=== PATIENT | male | born 1970 | race Caucasian/White ===

== ENCOUNTER 2024-07-17 21:29 | Inpatient (IN) | payer BC, SELFPAY ==
--- NOTE | 2024-07-17 21:30 | ECG_ITS ---
APPROVED REPORT Exam: Resting ECG HR:110 bpm ECG Measurements Heart Rate 110 AXES NV 120 P 27 QRSd 102 QRS 30 QT 329 T 27 QTc 394 Conclusion SINUS TACHYCARDIA INDETERMINATE AXIS INCOMPLETE RIGHT BUNDLE BRANCH BLOCK [90+ ms QRS DURATION, TERMINAL R IN V1/V2, 40+ ms S IN I/aVL/V4/V5/V6] SEPTAL MYOCARDIAL INFARCTION , PROBABLY OLD [40+ ms Q WAVE IN V1/V2] ABNORMAL ECG UNCONFIRMED REPORT Electronically signed by : Erick Hilton MD 07/18/2024 09:37:16
--- OUTSIDE RECORDS SUMMARY | 2024-07-17 21:33 | XMS_ITS | Encounter Summary ---
Author Organization [employer] Address [address] [place] [address] Care Team Providers Care Puddler Helper Name Role Phone Derick Peres MD Primary Care Provider [phone] Encounter Details Date Type Department Care Team (Late st Contact Info) Description 05/25/2024 Orders Only [facility] [address] [facility] [address] [place] [address] Suraj Martin MD [address] [facility] [address] [place], [place] [id number] Gastroesophageal reflux disease without esophagitis (Primary Dx); Screen for colon cancer Social History Tobacco Use Types Packs/Day Years Used Date Smoking Tobacco: Never Assessed Interpersonal Safety Answer Date Record ed Family or friends hurt you Not on file 04/19 Family or friends insult you Not on file 05/2024 Family or friends threaten you Not on file 0 04/19/2024 Family or friends scream or curse at you Not on file 04/19/2024 Food Insecurity Answer Date Recorded Food run out past 12 months Not on file 04/10 Food did not last past 12 months Not on file 04/19/2024 Employment Answer Date Recorded Help finding and keeping a job Not on file 0 04/19/2024 Family and Community Support Answer Kirill e Recorded Help with Day to Day Activities Not on file 04/19/2024 Feeling Lonely or Isolated Not on file 04/19 Educational Attainment Answer Date Naun rded Speak language other than [place] at home Not on file 04/19/2024 Want help with school or training Not on file 04/19/2024 Depression Answer Date Recorded PHQ-2 Risk Not on file 04/19/2024 Disabilities Answer Date Recorded Difficulty concentrating Not on file 024 Difficulty doing errands alone Not on file 0 04/19/2024 Substance Use Answer Date Recorded Used prescription meds for non-medical reasons N ot on file 04/19/2024 Used illegal drugs past 12 months Not on file 04/19/2024 Sex and Gender Information Value Date Recorded Sex Assigned at Not on file Legal Sex Male 9:54 AM CDT Gender Identity Not on file Sexual Orientation Not on file documented as of this encounter Plan of Treatment Upcoming Encounters Date Type Department Care Team (Late st Contact Info) Description 07/29/2024 9:51 AM EST Hospital Encounter [facility] Endoscopy 1 [place] [address] Suraj Martin MD [address] [place] [address] 07/29/2024 9:51 AM EST - 07/29/2024 10:[address] [facility] Endoscopy 1 [place] [address] Suraj Martin MD [address] [place] [address] COLONOSCOPY Scheduled Procedures Name Priority Associated Diagnoses Date/Ti ma COLONOSCOPY Screen for colon cancer 07/29/2024 9:51 AM EST EGD (ESOPHAGOGASTRODUODENOSCOPY ) Screen for colon cancer 07/29/2024 9:51 AM EST documented as of this encounter Visit Diagnoses Diagnosis Gastroesophageal reflux disease without esophagitis- Primary Esophageal reflux Screen for colon cancer Special screening for malignant neoplasms, colon Screen for colon cancer- Primary Special screening for malignant neoplasms, colon Screen for colon cancer Special screening for malignant neoplasms, colon documented in this encounter Care Teams Puddler Helper Relationship Specialty Start Date End Date Derick Peres MD [address] [place] [address] PCP - General Emergency Medicine 04/19/24 documented as of this encounter
--- OUTSIDE RECORDS SUMMARY | 2024-07-17 21:33 | XMS_ITS | Referral Summary ---
Author Organization [employer] Address [address] [place] [address] Care Team Providers Care Supervisor Core Shop Name Role Phone Derick Peres MD Primary Care Provider [phone] Encounters Date Type Department Care Team Description 05/25/2024 Orders Only [facility] [address] [place] [address] [address] Suraj Martin MD 05/25/2024 Orders Only [facility] [address] [place] [address] [address] Suraj Martin MD Gastroesophageal reflux disease without esophagitis (Primary Dx); Screen for colon cancer 04/19/2024 Outside Orders [facility] [address] [place] [address] [address] Derick Peres MD Screening for colon cancer (Primary Dx) from Last 3 Months Allergies No known active allergies Medications sodium-potassium -mag sulfates (Suprep Bowel Prep Kit) 17.5-3.13-1.6 gram solution Take 177 mLs by mouth 2 (two) times daily for 2 doses. 354 mL 07/28/2024 Active Active Problems Problem Noted Date Diagnosed Date Screen for colon cancer 05/25/2024 Social History Tobacco Use Types Packs/Day Years [...] Date Naun rded Speak language other than Tajik at home Not on file 04/19/2024 Want [...] on file Sexual Orientation Not on file Plan of Treatment Upcoming Encounters Date Type Department Care Team (Late st Contact Info) Description 07/29/2024 9:51 AM EST Hospital Encounter [facility] Endoscopy [address] [place] [address] Suraj Martin MD [address] [place] [address] 07/29/2024 9:51 AM EST - 07/29/2024 10:41 AM EST Surgery [facility] Endoscopy [address] [place] [address] Suraj Martin MD [address] [place] [address] COLONOSCOPY Scheduled Procedures Name Priority Associated Diagnoses Date/Ti nm COLONOSCOPY Screen for colon cancer 07/29/2024 9:51 AM EST EGD (ESOPHAGOGASTRODUODENOSCOPY ) Screen for colon cancer 07/29/2024 9:51 AM EST Insurance BLUE CROSS/BLUE SHIELD Care Teams Supervisor Core Shop Relationship Specialty Start Date End Date Derick Peres MD [address] [place] [address] PCP - General Emergency Medicine 04/19/24
--- OUTSIDE RECORDS SUMMARY | 2024-07-17 21:33 | XMS_ITS | Encounter Summary ---
Author Organization [employer] Address [address] [place] [address] Care Team Providers Care Manager Emergency Department Name Role Phone Derick Peres MD Primary Care Provider [phone] Encounter Details Date Type Department Care Team (Late st Contact Info) Description 05/25/2024 Orders Only [facility] [address] [facility] [address] [place] [address] Suraj Martin MD [address] [facility] [address] [place] [id number] Social History Tobacco Use Types Packs/Day Years [...] Date Naun rded Speak language other than Yemeni at home Not on file 04/19/2024 Want [...] Description 07/29/2024 9:51 AM EST Hospital Encounter [facility] Endoscopy 1 [place] [address] Suraj Martin MD [address] [place] [address] 07/29/2024 9:51 AM EST - 07/29/2024 10:41 AM EST Surgery [facility] Endoscopy 1 [place] [address] Suraj Martin MD [address] [place] [address] COLONOSCOPY Scheduled Procedures Name Priority Associated Diagnoses Date/Ti me COLONOSCOPY Screen for colon cancer 07/29/2024 9:51 AM EST EGD (ESOPHAGOGASTRODUODENOSCOPY ) Screen for colon cancer 07/29/2024 9:51 AM EST documented as of this encounter Visit Diagnoses Not on filedocumented in this encounter Care Teams Manager Emergency Department Relationship Specialty Start Date End Date Derick Peres MD [address] [place] [phone] PCP - General Emergency Medicine 04/19/24 documented as of this encounter
--- OUTSIDE RECORDS SUMMARY | 2024-07-17 21:33 | XMS_ITS | Clinical Summary ---
Author Organization [employer] Address [address] [place] [address] Care Team Providers Care Director Of Government Sales Name Role Phone Derick Peres MD Primary Care Provider [phone] Allergies No known active allergies Medications sodium-potassium -mag sulfates (Suprep Bowel Prep Kit) 17.5-3.13-1.6 gram solution Take 177 mLs by mouth 2 (two) times daily for 2 doses. 354 mL 07/28/2024 Active Active Problems Problem Noted Date Diagnosed Date Screen for colon cancer 05/25/2024 Encounters Date Type Department Care Team Description 05/25/2024 Orders Only [facility] [address] [place] [address] [address] Suraj Martin MD 05/25/2024 Orders Only [facility] [address] [place] [address] [address] Suraj Martin MD Gastroesophageal reflux disease without esophagitis (Primary Dx); Screen for colon cancer 04/19/2024 Outside Orders [facility] [address] [place] [address] [address] Derick Peres MD Screening for colon cancer (Primary Dx) from Last 3 Months Social History Tobacco Use Types Packs/Day Years [...] Date Naun rded Speak language other than Cameroonian at home Not on file 04/19/2024 Want [...] Description 07/29/2024 9:51 AM EST Hospital Encounter [facility] Endoscopy 1 [place] [address] Suraj Martin MD [address] [place] [address] 07/29/2024 9:51 AM EST - 07/29/2024 10:41 AM EST Surgery [facility] Endoscopy 1 [place] [address] Suraj Martin MD [address] [place] [address] COLONOSCOPY Scheduled Procedures Name Priority Associated Diagnoses Date/Ti il COLONOSCOPY Screen for colon cancer 07/29/2024 9:51 AM EST EGD (ESOPHAGOGASTRODUODENOSCOPY ) Screen for colon cancer 07/29/2024 9:51 AM EST Health Maintenance Due Date Last Done Comments CT Colonography 1968 Colonoscopy 1968 Colorectal Cancer Screening 1968 FOBT/FIT 1968 Fit-DNA (Cologuard) 1968 Sigmoidoscopy 1968 Depression Screening (12+) 1980 Tobacco Cessation Counseling and Screening (12+) 12/13 HIV Screening 12/14/1983 Hepatitis C Screening 1986 DTAP/TDAP/TD VACCINES (1 - Tdap) 12/14/1987 Lipid Panel 12/14/2003 Shingles Vaccine (Zoster) (1 of 2) 2018 COVID-19 VACCINE (2023- season) 2024 Influenza Vaccine (#1) 2024 Insurance BLUE CROSS/BLUE SHIELD Care Teams Director Of Government Sales Relationship Specialty Start Date End Date Derick Peres MD [address] [facility] [place] [address] PCP - General Emergency Medicine 04/19/24
--- OUTSIDE RECORDS SUMMARY | 2024-07-17 21:33 | XMS_ITS | Encounter Summary ---
Author Organization [employer] Address [address] [place] [address] Care Team Providers Care Police Lieutenant Name Role Phone Derick Peres MD Primary Care Provider [phone] Reason for Referral * Surgical (Routine) - Authorized Specialty Diagnoses / Procedures Referred By Contact Referred To Contact General Surgery Diagnoses Screening for colon cancer Gastro-esophageal reflux disease without esophagitis Procedures COLONOSCOPY DC ESOPHAGOGASTRODUODENOSCOPY TRANSORAL DIAGNOSTIC Mailed Letter 05/05/24 GIVE TO Derick Hernandez MD [address] [place] [address] Phone: tel:[phone] fax:[phone] Suraj Martin MD [address] [facility] [address] [place] [address] Phone: tel:[phone] fax:[phone] Referral ID Status Reason Start Date Expiration Date Visits Requested Visits Authorized [id number] Authorized Specialty Services Required 04/19/2024 04/19/2025 1 1 Encounter Details Date Type Department Care Team (Late st Contact Info) Description 04/19/2024 Outside Orders [facility] [address] [facility] [address] [place] [address] Derick Peres MD [address] [place] [address] Screening for colon cancer (Primary Dx) Social History Tobacco Use Types Packs/Day Years [...] Date Naun rded Speak language other than Bulgarian at home Not on file 04/19/2024 Want [...] Description 07/29/2024 9:51 AM EST Hospital Encounter [facility] Endoscopy 1 [place] [address] Suraj Martin MD [address] [place] [address] [address] [id number] 07/29/2024 9:51 AM EST - 07/29/2024 10:41 AM EST Surgery [facility] Endoscopy 1 [place] [address] Suraj Martin MD [address] [facility] [place] [address] COLONOSCOPY Scheduled Procedures Name Priority Associated Diagnoses Date/Ti me COLONOSCOPY Screen for colon cancer 07/29/2024 9:51 AM EST EGD (ESOPHAGOGASTRODUODENOSCOPY ) Screen for colon cancer 07/29/2024 9:51 AM EST Scheduled Referrals Name Type Priority Associated Diagnoses Order Schedule Ambulatory referral to General Surgery Outpatient Referral Routine Screening for colon cancer Expected: 04/19/2024, Expires: 04/19/2025 documented as of this encounter Visit Diagnoses Diagnosis Screening for colon cancer- Primary Special screening for malignant neoplasms, colon Screen for colon cancer Special screening for malignant neoplasms, colon documented in this encounter Care Teams Police Lieutenant Relationship Specialty Start Date End Date Derick Peres MD [address] [place] [address] PCP - General Emergency Medicine 04/19/24 documented as of this encounter
[2024-07-17 21:37] VITALS: PULSE 100
--- NOTE | 2024-07-17 21:38 | PC.NURSE ---
Patient arrived to floor via stretcher with EMS from [facility] at 21:35.
[2024-07-17 21:46] VITALS: PULSE 100
[2024-07-17 21:57] VITALS: BP 127/75; RESP 18; TEMP 38; O2SAT 94
[2024-07-17 22:00] VITALS: BMI 34.3
--- NOTE | 2024-07-17 22:39 | CT_ITS ---
PROCEDURE INFORMATION: Exam: CT Head Without Contrast Exam date and time: 07/17/2024 11:18 PM Age: 53 years old Clinical indication: Dizziness; Additional info: Vertigo TECHNIQUE: Imaging protocol: Computed tomography of the head without contrast. Radiation optimization: All CT scans at this facility use at least one of these dose optimization techniques: automated exposure control; mA and/or kV adjustment per patient size (includes targeted exams where dose is matched to clinical indication); or iterative reconstruction. COMPARISON: No relevant prior studies available. FINDINGS: Brain: No evidence for acute intracranial hemorrhage, midline shift, or mass effect. No convincing evidence for acute transcortical infarct. Cerebral ventricles: No ventriculomegaly. Paranasal sinuses: Visualized sinuses are unremarkable. No fluid levels. Mastoid air cells: Visualized mastoid air cells are well aerated. Teeth: There is dental amalgam which causes streak artifact and mildly limits evaluation of the oral cavity. Bones: There is hyperdensity of the skull base vasculature which can be seen in recent IV contrast administration, please correlate clinically. Soft tissues: Unremarkable. IMPRESSION: 1. There is hyperdensity of the skull base vasculature which can be seen in recent IV contrast administration, please correlate clinically. 2. No evidence for acute intracranial hemorrhage, midline shift, or mass effect. No convincing evidence for acute transcortical infarct.
--- NOTE | 2024-07-17 22:47 | P.HP_ITS ---
History of Present Illness *Admission Date: 07/17/24 *Reason for visit:: I feel weak *History of present illness: This is a 53-year-old male that has presented to [facility] in transition of care from [facility] emergency department for sepsis presentation with elevated troponin. The patient reports no chest pain and ED has identified no acute ST-T changes on ECG. The patient is accompanied by his and 3 daughters who assist with the history. He describes a past medical history which is significant for hypertension, tobacco dependence and LOYD but no identified chronic kidney disease. His tobacco use history is significant for 1 pack/day for 30 years. He drinks 4 to 6 ounces of bourbon daily. He reports awakening at 2 AM with fever, chills, diaphoresis and near syncope with standing up. He felt like my legs were going to give out. He laid back down and went to sleep. He woke up approximately 10 AM and reported some spinning room sensation to his with ongoing chills and generalized weakness. He went back to bed and woke up later in the afternoon and his reports that he was talking out of his head and he called me Anna which is his sister. The patient identified no dysarthria, acute loss of motor or sensory function. He reported no falls. He remained lightheaded. They presented to their local ED and he was assessed with sepsis with blood cultures pending, S/P fluid resuscitation and IV antibiotic therapy. His initial troponin was 718 and trended downward to 697. He was started on IV heparin therapy and cardiology was consulted out of the ED and his care was transitioned to our facility for cardiology services. Currently the patient continues to deny retrosternal chest pain, palpitations or acute dyspnea. He reports no associated cough, hemoptysis or sputum production. He cannot identify sick contacts. He does endorse confusion early this morning. He reports no prior history of cardiac catheterization. [facility] Medical History (Updated 07/17/24 @ 23:04 by Randy Burt MD) LOYD (obstructive sleep apnea) Tobacco dependence BMI 35.0-35.9,adult HTN (hypertension) Surgical History (Updated 07/17/24 @ 22:57 by Randy Burt MD) S/P lumbar laminectomy Superior glenoid labrum lesion of right shoulder Family History (Updated 07/17/24 @ 22:57 by Randy Burt MD) Other Adopted Social History (Updated 07/17/24 @ 22:59 by Randy Burt MD) Smoking Status: Current every day smoker tobacco type: cigarettes packs per day: 1 years smoked: 30 alcohol intake: current alcohol intake frequency: 3 or more drinks per day Type: hard liquor current occupational status: employed Travel in the last 8 weeks: None Other Medical History Have you received the Flu Vaccine for this season: No Have you received the Pneumonia Vaccine: No Review of Systems Review of Systems Review of systems:: pertinent systems reviewed and negative unless documented below Meds Home Medications and Allergies Home Medications ?Medication ?Instructions ?Recorded ?Confirmed ?Type losartan 50 mg-hydrochlorothiazide 1 tab PO DAILY 07/17/24 07/17/24 History 12.5 mg tablet New Prescriptions to Start Prescriptions: Allergies Allergy/AdvReac Type Severity Reaction Status Date / Time No Known Allergies Allergy Verified 07/17/24 21:50 Exam Data for Last 24 hours Vital signs and Labs for Last 24 Hours: Temp Pulse Resp BP Pulse Ox O2 Del Method 100.4 F H 100 H 18 127/75 94 L Room Air 07/17/24 21:57 07/17/24 21:46 07/17/24 21:57 07/17/24 21:57 07/17/24 21:57 07/17/24 21:57 I & O for Last 24 hours: Intake & Output 07/14/24 07/15/24 07/16/24 07/17/24 23:59 23:59 23:59 23:59 Weight 99.246 kg Constitutional Constitutional: no acute distress, obese and cooperative *Routine HEENT Exam Head: Present normocephalic and atraumatic Eye: Present EOMI and PERRL ENT: Present mucous membranes moist *Routine Neck Exam Neck: Present supple and trachea midline; Absent JVD or lymphadenopathy *Routine Respiratory Exam Respiratory: Present rhonchi, normal respiratory effort and symmetric chest movement; Absent respiratory distress or wheezes *Routine Cardiovascular Exam Cardiovascular: Present RRR *Routine Abdominal Exam Abdominal: Present soft and normoactive bowel sounds; Absent tenderness *Routine Rectal Exam Rectal:: deferred *Routine Genitalia Exam Genitalia:: deferred *Routine Extremities Exam Extremities: Present full ROM and normal capillary refill; Absent clubbing or edema *Routine Skin Exam Skin: Present intact and warm; Absent wounds or rash *Routine Neurological Exam Neurological: Present alert, oriented X3, moving all extremities, vision grossly intact, hearing grossly intact and normal speech; Absent sensory deficit, motor deficit or altered mental status Routine Psychiatric Exam Psychiatric: Present normal affect, normal thought process, cooperative, good insight and good judgment Assessment and Plan *Assessment and plan (1) Sepsis with acute organ dysfunction: Status: Acute Category: Medical Code(s): A41.9 - Sepsis, unspecified organism; R65.20 - Severe sepsis without septic shock (2) YODIT (acute kidney injury): Status: Acute Category: Medical Code(s): N17.9 - Acute kidney failure, unspecified (3) Myocardial injury: Status: Acute Category: Medical Code(s): I5A - Non-ischemic myocardial injury (non-traumatic) (4) HTN (hypertension): Status: Acute Category: Medical Code(s): I10 - Essential (primary) hypertension (5) COPD exacerbation: Status: Acute Category: Medical Code(s): J44.1 - Chronic obstructive pulmonary disease with (acute) exacerbation (6) LOYD (obstructive sleep apnea): Status: Acute Category: Medical Code(s): G47.33 - Obstructive sleep apnea (adult) (pediatric) (7) Tobacco dependence: Status: Acute Category: Medical Code(s): F17.200 - Nicotine dependence, unspecified, uncomplicated (8) BMI 35.0-35.9,adult: Status: Acute Category: Medical Code(s): Z68.35 - Body mass index [BMI] 35.0-35.9, adult Plan This is a 53-year-old male with risk factors for coronary artery disease, presenting sepsis with acute kidney injury and identified elevated troponin with no chest pain or acute ECG changes. Problems addressed as follows: Severe sepsis with acute organ dysfunction, present on admission Tachycardia, febrile, tachypnea, leukocytosis, source identified Telemetry and pulse oximetry monitoring IV fluid resuscitation with lactic acid 2.2 Elevated procalcitonin level Blood cultures pending Trending labs and inflammatory markers Respiratory PCR negative MRSA screen Urinalysis pending IV antibiotic therapy Acute kidney injury Baseline creatinine reported as normal Trending electrolytes and creatinine IV fluid resuscitation Contrast with CT imaging noted Avoiding NSAIDs Avoiding ARB therapy Myocardial injury type II Hypertension Telemetry monitoring Cardiology consultation Echocardiogram ordered ECG with sinus tachycardia, incomplete RBBB, QTc 394 MS Troponin trend static Antiplatelet therapy Statin therapy IV heparin therapy Drug therapy requiring intensive monitoring for toxicity Routine PTT Beta-papi therapy Avoiding ARB therapy with YODIT Parenterally administered controlled substance for comfort care COPD exacerbation Tobacco dependence LOYD/OHS/BMI 34 Pulse oximetry monitoring Oxygen therapy to maintain appropriate oxygen saturations Currently oxygenating appropriately on room air NIPPV therapy Chest x-ray with no acute disease CTA chest with no PE and no pneumonia Teodora/Dottie inhalation therapy Doxycycline therapy Tobacco cessation education Nicotine replacement therapy Alcohol use disorder moderate dependence Routine nursing interaction Alcohol level UDS CIWA Benzodiazepine therapy Multivitamin with folic acid therapy Thiamine therapy The length of stay for this patient will be 2 midnights or greater due to above diagnoses.
[2024-07-17 23:13] LABS: Microscopic, Urine URINE MICROSCOPIC (MICROSCOPIC)
[2024-07-17 23:15] LABS: Adenovirus,PCR Not Detected (NotDetected); Bordetella Pertussis Not Detected (NotDetected); Chlamydophila Pneumoniae, PCR Not Detected (NotDetected); Coronavirus 19, PCR Not Detected (NotDetected); Coronavirus 229E Not Detected (NotDetected); Coronavirus NL63 Not Detected (NotDetected); Coronavirus OC43 Not Detected (NotDetected); Coronovirus HKU1,PCR Not Detected (NotDetected); Human Metapneumovirus Not Detected (NotDetected); Influenza A, PCR Not Detected (NotDetected); Influenza AH1, 2009 Not Detected (NotDetected); Influenza AH1, PCR Not Detected (NotDetected); Influenza AH3,PCR Not Detected (NotDetected); Influenza B, PCR Not Detected (NotDetected); Mycoplasma Pneumoniae, PCR Not Detected (NotDetected); Parainfluenza 1, PCR Not Detected (NotDetected); Parainfluenza 2, PCR Not Detected (NotDetected); Parainfluenza 3, PCR Not Detected (NotDetected); Parainfluenza 4, PCR Not Detected (NotDetected); Respiratory Syncytial Virus Not Detected (NotDetected); Rhinovirus/Enterovirus Not Detected (NotDetected)
[2024-07-17 23:16] LABS: Appearance,Urine CLEAR (Clear); Bilirubin,Urine Negative (Negative); Blood, Urine 3+ (Negative); Color,Urine YELLOW (Yellow); Glucose,Urine (UA) Negative (Negative); Ketones,Urine Negative (Negative); Leukocyte Esterase,Urine Negative (Negative); Nitrate,Urine Negative (Negative); PH,Urine 6.5 (5.0-8.5); Protein,Urine 1+ (Negative); Specific Gravity, Urine 1.015 (1.005-1.030)
[2024-07-17 23:24] LABS: Bacteria,Urine Trace /lpf
[2024-07-17 23:27] LABS: Barbiturates Screen,Urine Negative ng/ml (<200)
[2024-07-17 23:28] LABS: Amphetamine/Metha Screen,Urine Negative ng/ml (<1000); Benzodiazepines Screen,Urine Negative ng/ml (<200)
[2024-07-17 23:28] LABS: INR 1.02 (0.9-1.1); Prothrombin Time 11.4 seconds (10.1-12.5)
[2024-07-17 23:29] LABS: Cannabinoid Screen,Urine Negative ng/ml (<50)
[2024-07-17 23:30] LABS: Cocaine Screen,Urine Negative ng/ml (<300); Methadone Screen,Urine Negative ng/ml (<300)
[2024-07-17 23:31] LABS: Opiate Screen,Urine Negative ng/ml (<300)
[2024-07-17 23:32] LABS: PTT Heparin (inpatient only) 33.8 Seconds (50-75)
[2024-07-17 23:32] LABS: Phencyclidine Screen,Urine Negative ng/ml (<25)
[2024-07-17 23:53] LABS: Ethyl Alcohol < 10 mg/dl (0-10)
[2024-07-18] VITALS (7 sets, daily range): BP systolic 127–157; BP diastolic 77–90; PULSE 85–109; RESP 16–19; TEMP 36.9–38.5; O2SAT 95–97; BMI 35.1
[2024-07-18] MEDS: HEPARIN SODIUM 5,000 UNIT/ML VIAL 4000 UNIT IV (00:02)
[2024-07-18] MEDS: HEPARIN SODIUM,PORCINE/D5W 500 ML 20 UNIT IV (00:03)
[2024-07-18] MEDS: HEPARIN DRIP CONSULT 1 EACH NOTAPPLIC (00:03)
[2024-07-18] MEDS: ACETAMINOPHEN 325MG TAB 1000 MG PO (00:33)
[2024-07-18] MEDS: LACTATED RINGERS 1000ML 1,000 ML 125 ML IV ×3 (00:33→20:33)
[2024-07-18 01:50] LABS: Troponin I 1.14 ng/ml (0.00-0.034)
--- NOTE | 2024-07-18 05:56 | PC.NURSE ---
Alert and oriented. remained at bedside. No complaints of pain from patient throughout the night. Pt did have a fever on admission, gave prn medication, reduce room temp and one blanket in place, pt is afebrile at this time. Heparin gtt infusing per MAR, PTT timed by pharmacy. Patient has had no SOA, and remains on room air, lung sounds clear. Call light in reach.
[2024-07-18 06:19] LABS: Basophils # 0.1 K/mm3 (0-0.2); Basophils % 0.5 % (0.1-2.0); Eosinophils # 0.1 K/mm3 (0.0-0.4); Eosinophils % 0.8 % (0.1-12.0); Hematocrit 44.4 % (42.0-52.0); Hemoglobin 15.1 g/dL (14.1-18.0); Lymphocytes # 0.5 K/mm3 (0.7-4.5); Lymphocytes % 3.3 % (10-50); Mean Corpuscular Hemoglobin 31.4 pg (27.0-31.2); Mean Corpuscular Volume 92.4 fl (80-94); Monocytes # 0.5 K/mm3 (0.1-1.0); Monocytes % 3.4 % (1.7-9.3); Neutrophils # 14.2 K/mm3 (1.8-7.8); Neutrophils % 91.9 % (37.0-80.0); Platelet Count 153 K/mm3 (142-424); Red Cell Distribution Width 13.6 % (11.5-17.5); White Blood Count 15.4 K/mm3 (4.8-10.8)
[2024-07-18 06:20] LABS: Albumin Level 3.7 g/dl (3.5-5.0); Chloride 109 mmol/L (98-107); Sodium 138 mmol/L (136-145)
[2024-07-18 06:21] LABS: Potassium 3.4 mmoL/L (3.5-5.1)
[2024-07-18 06:23] LABS: Alanine Aminotransferase 25 U/L (12-78); Albumin/Globulin Ratio 1.4 (1.1-1.8); Alkaline Phosphatase 57 U/L (38-126); Anion Gap 9.4 mEq/L (5-15); Aspartate Amino Transferase 41 U/L (17-59); Bilirubin,Total 1.1 mg/dl (0.2-1.3); Blood Urea Nitrogen 17 mg/dl (9-20); Carbon Dioxide 23 mmol/L (22.0-30.0); Creatinine Clearance Estimated 109 mL/min (50-200); Estimated Glomerular Filt Rate 69 ml/min (>60); GFR (African American) 84 ML/MIN (>60); Globulin 2.7 g/dL (1.3-3.2); Total Protein,Serum 6.4 g/dl (6.3-8.2)
[2024-07-18 06:24] LABS: Calcium 8.4 mg/dl (8.4-10.2); Chol/HDL Ratio 4.9 (1-3.5); Cholesterol 181 mg/dl (140-200); Glucose 118 mg/dl (74-100); HDL Cholesterol 37 mg/dl (40-60); Lactic Acid 1.1 mmol/L (0.7-2.1); Magnesium 1.6 mg/dl (1.6-2.3); Triglycerides 89 mg/dl (30-150); VLDL Cholesterol 18 mg/dL (0-40)
[2024-07-18 06:40] LABS: Direct LDL Cholesterol 113.03 mg/dL (100-129)
[2024-07-18 06:42] LABS: MANUAL DIFFERENTIAL MANUAL DIFFERENTIAL (MANUAL DIFF)
[2024-07-18 07:05] LABS: PTT Heparin (inpatient only) 43.4 Seconds (50-75)
--- NOTE | 2024-07-18 07:26 | HMH.PHAINT1 ---
Pharmacy Intervention Comments: MEDICATION RECONCILIATION COMPLETED ON PATIENT USING EXTERNAL FILL HISTORY FROM PHARMACY. -ADAM HAWKINS, HOD
[2024-07-18 07:28] LABS: Procalcitonin 0.973 ng/mL (0.0-2.0)
[2024-07-18] MEDS: HEPARIN SODIUM 5,000 UNIT/ML VIAL 3000 UNIT IV ×2 (07:30→19:45)
[2024-07-18] MEDS: HEPARIN SODIUM,PORCINE/D5W 500 ML 24 UNIT IV (07:31)
--- NOTE | 2024-07-18 07:33 | P.CONPHA_ITS ---
[facility] Pharmacy Heparin Dosing Demographic Data Admission date:: 07/17/24 Date: 07/18/24 Time: 07:33 Allergies Allergy/AdvReac Type Severity Reaction Status Date / Time No Known Allergies Allergy Verified 07/17/24 21:50 Height: 1.7 m Weight: 101.5 kg Indication Medication therapy:: Heparin Current Active Problems (Updated 07/19/24 @ 15:10 by Suraj Steel MD) Community acquired pneumonia (Acute) Sepsis (Acute) Abnormal electrocardiogram [ECG] [EKG] (Acute) Non-STEMI (non-ST elevated myocardial infarction) (Acute) COPD exacerbation (Acute) Myocardial injury (Acute) HTN (hypertension) (Acute) LOYD (obstructive sleep apnea) (Acute) YODIT (acute kidney injury) (Acute) Sepsis with acute organ dysfunction (Acute) Tobacco dependence (Acute) BMI 35.0-35.9,adult (Acute) CVA?: No Bleeding problem?: No Kidney disease?: No AR?: No Desired PTT range:: 50-75 seconds Labs Anticoagulation Lab Results:: 07/18/24 06:05 Hgb 15.1 Hct 44.4 Plt Count 153 Monitoring Dose Monitor 1: Date: 07/17/24 Time: 23:05 PTT Result:: 33.8 (BASELINE) Infusion Rate:: 1,000 UNITS/HR Comment:: 4,000 UNIT BOLUS Dose Monitor 2: Date: 07/18/24 Time: 06:05 PTT Result:: 43.4 Infusion Rate:: INCREASE RATE TO 1,200 UNITS/HR Comment:: 3,000 UNIT BOLUS Dose Monitor 3: Date: 07/18/24 Time: 13:30 PTT Result:: 53.5 Infusion Rate:: 1,200 UNITS/HR Dose Monitor 4: Date: 07/18/24 Time: 18:00 PTT Result:: 46.4 Infusion Rate:: INCREASE RATE TO 1,400 UNITS/HR Comment:: 3,000 UNIT BOLUS Dose Monitor 5: Date: 07/19/24 Time: 01:00 PTT Result:: 56.3 Infusion Rate:: 1,400 UNITS/HR Dose Monitor 6: Date: 07/19/24 Time: 07:00 PTT Result:: 47.2 Infusion Rate:: INCREASE RATE TO 1,600 UNITS/HR Comment:: 3,000 UNIT BOLUS Dose Monitor 7: Date: 07/19/24 Time: 13:00 PTT Result:: 62.6 Infusion Rate:: 1,600 UNITS/HR Dose Monitor 8: Date: 07/19/24 Time: 19:00 PTT Result:: 45.7 Infusion Rate:: INCREASE RATE TO 1,800 UNITS/HR Comment:: 3,000 UNIT BOLUS Dose Monitor 9: Date: 07/20/24 Time: 03:00 PTT Result:: 65.9 Infusion Rate:: 1,800 UNITS/HR Comment:: [id number] Dose Monitor 10: Date: 07/20/24 Time: 09:00 PTT Result:: 56.7 Infusion Rate:: 1,800 UNITS/HR Comment:: 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 Is INR > or = 2 at discharge?: No Most Recent Labs:: Laboratory Results - last 24 hr 07/17/24 23:00: Urine Color Yellow, Urine Appearance Clear, Urine pH 6.5, Ur Specific [place] 1.015, Urine Protein 1+ A, Urine Glucose (UA) Negative, Urine Ketones Negative, Urine Blood 3+ A, Urine Nitrate Negative, Urine Bilirubin Negative, Urine Urobilinogen 1.0, Ur Leukocyte Esterase Negative, Urine RBC 10- 20, Urine WBC 3-5, Ur Squamous Epith Cells 3-5, Urine Bacteria Trace, Urine Opiates Screen Negative, Urine Methadone Screen Negative, Ur Barbituates Screen Negative, Ur Phencyclidine Scrn Negative, Ur Amphetamines Screen Negative, U Benzodiazepines Scrn Negative, Urine Cocaine Screen Negative, U Marijuana (THC) Screen Negative, Chlamy pneumoniae PCR Not detected, Adenovirus (PCR) Not detected, B. pertussis DNA (PCR) Not detected, Coronavirus OC43 (PCR) Not detected, Coronavirus HKU1 (PCR) Not detected, Coronavirus 229E (PCR) Not detected, SARS-CoV-2 (PCR) Not detected, Coronavirus NL63 (PCR) Not detected, Human Metapneumovir PCR Not detected, Influenza A (H1) PCR Not detected, Influ A (H1N1/09) PCR Not detected, Influenza A (H3) PCR Not detected, Influenza Type A (PCR) Not detected, Influenza Type B (PCR) Not detected, M. pneumoniae (PCR) Not detected, Parainfluenza 1 (PCR) Not detected, Parainfluenza 2 (PCR) Not detected, Parainfluenza 3 (PCR) Not detected, Parainfluenza 4 (PCR) Not detected, RSV (PCR) Not detected, Entero/Rhino (PCR) Not detected 07/17/24 23:05: PT 11.4, INR 1.02, APTT 33.8 L, Plasma/Serum Alcohol < 10 07/18/24 01:25: Troponin I 1.14 H 07/18/24 06:05: WBC 15.4 H, RBC 4.80, Hgb 15.1, Hct 44.4, MCV 92.4, MCH 31.4 H, MCHC 34.0, RDW 13.6, Plt Count 153, MPV 9.0, Neut % (Auto) 91.9 H, Lymph % (Auto) 3.3 L, [place] % (Auto) 3.4, Eos % (Auto) 0.8, Baso % (Auto) 0.5, Neut # (Auto) 14.2 H, Lymph # (Auto) 0.5 L, [place] # (Auto) 0.5, Eos # (Auto) 0.1, Baso # (Auto) 0.1, APTT 43.4 L, Sodium 138, Potassium 3.4 L, Chloride 109 H, Carbon Dioxide 23, Anion Gap 9.4, BUN 17, Creatinine 1.10, Estimated Creat Clear 109, Estimated GFR 69, Est GFR ( Amer) 84, Glucose 118 H, Lactate 1.1, Calcium 8.4, Magnesium 1.6, Total Bilirubin 1.1, AST 41, ALT 25, Alkaline Phosphatase 57, Total Protein 6.4, Albumin 3.7, Globulin 2.7, Albumin/Globulin Ratio 1.4, Triglycerides 89, Cholesterol 181, LDL Cholesterol Direct 113.03, VLDL Cholesterol 18, HDL Cholesterol 37 L, Cholesterol/HDL Ratio 4.9 H Were Heparin and Warfarin started on the same day?: No If not, why?: 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
[2024-07-18 07:35] LABS: C-Reactive Protein 143.4 mg/L (0-4)
[2024-07-18 07:48] LABS: Troponin I 1.07 ng/ml (0.00-0.034)
--- NOTE | 2024-07-18 07:57 | XR_ITS ---
FINAL REPORT CLINICAL HISTORY: sepsis workup COMPARISON: None FINDINGS: A single portable view of the chest was obtained. The heart size and pulmonary vascularity are within normal limits. The mediastinum is within normal limits. Mild bibasilar opacities likely represent atelectasis or pneumonia. The bony thorax is intact. IMPRESSION: Mild bibasilar opacities, likely atelectasis or pneumonia. Reviewed, Interpreted and Dictated by Martínez Manrique III, MD Transcribed by Bianca Guadalupe Authenticated and [facility]
[2024-07-18 07:59] LABS: Hemoglobin A1C 5.4 % (4.0-6.0)
[2024-07-18] MEDS: ASPIRIN EC 81MG TABLET 81 MG PO (08:55)
[2024-07-18] MEDS: METOPROLOL SUCCINATE XL 50MG TABLET 50 MG PO (08:55)
[2024-07-18] MEDS: THIAMINE 100MG TABLET 100 MG PO (08:55)
[2024-07-18] MEDS: FOLIC ACID 1MG TABLET 1 MG PO (08:55)
[2024-07-18] MEDS: ACETAMINOPHEN 500MG TAB 1000 MG PO ×3 (08:55→22:34)
[2024-07-18] MEDS: CEFTRIAXONE SODIUM 1 GM in 0.9 % SODIUM CHLORIDE 50 ML IV (08:56)
[2024-07-18 09:51] LABS: Lymphocytes % 2 % (10-50); Monocytes % 2 % (2-9); Neutrophils % 96 % (42-76); RBC Morphology Normal; Total Cells Counted 100
[2024-07-18 09:52] LABS: Platelet Estimate Normal
[2024-07-18] MEDS: AZITHROMYCIN 500 MG in 0.9 % SODIUM CHLORIDE 250 ML 250 MG IV (10:56)
[2024-07-18] MEDS: DOXYCYCLINE HYCL 100 MG TABLET PO (10:56)
[2024-07-18] MEDS: POTASSIUM CHLORIDE 20MEQ TAB 40 MEQ PO ×2 (11:01→15:35)
[2024-07-18] MEDS: MAGNESIUM SULFATE IN WATER 2 GM/50 ML PIGGYBACK IV ×2 (12:14→13:50)
--- NOTE | 2024-07-18 13:20 | EXP.CARD.CON ---
History of Present Illness History of Present Illness Consult date: 07/18/24 Requesting physician: Suraj Steel Chief complaint: weakness, chills History of present illness: This is a 53-year-old gentleman who presented to [facility] as a transfer from [facility] due to sepsis and an elevated troponin. The patient states that he woke up around 2 AM on Thursday morning with chills, fevers, dizziness and weakness. The patient felt as if he were going to pass out. He states that his legs were weak and felt like they were not going to hold him up. He decided to lay back down and go back to sleep. He states that he woke up again around 10 AM with the same sensations and only that time he felt like he was talking out of his head and was confused as well. The patient and his family decided to take him to the emergency department. At [facility] he was found to have an elevated troponin and sepsis protocol was initiated. The patient was then transferred here to [facility]. His troponin remained elevated at 1.4. He was started on IV heparin drip. The patient is currently getting IV antibiotics. He still is febrile this morning. He denies any chest pain or pressure. He denies any shortness of breath or edema. He states that he has developed a nonproductive cough since being in the hospital. He denies any nausea, vomiting or diarrhea. He denies any PND orthopnea. He states that he is still having fevers with chills and diaphoresis. [facility] Disclaimer: The information contained in this section may have been updated after the patient was seen, as this information can be updated by other users. Medical History (Updated 07/18/24 @ 13:26 by Nafisa Mijares APRN) Abnormal electrocardiogram [ECG] [EKG] Non-STEMI (non-ST elevated myocardial infarction) LOYD (obstructive sleep apnea) Tobacco dependence BMI 35.0-35.9,adult HTN (hypertension) Surgical History (Updated 07/17/24 @ 22:57 by Randy Burt MD) S/P lumbar laminectomy Superior glenoid labrum lesion of right shoulder Family History (Updated 07/17/24 @ 22:57 by Randy Burt MD) Other Adopted Social History (Updated 07/17/24 @ 22:59 by Randy Burt MD) Smoking Status: Current every day smoker tobacco type: cigarettes packs per day: 1 years smoked: 30 alcohol intake: current alcohol intake frequency: 3 or more drinks per day Type: hard liquor current occupational status: employed Travel in the last 8 weeks: None Review of Systems Review of Systems Review of systems:: pertinent systems reviewed and negative unless documented below Constitutional Constitutional: Reports system reviewed and no additional complaints, except as documented, Reports body ache(s), Reports chills, Reports fever(s) and Reports malaise Eyes Eyes: Reports system reviewed and no additional complaints, except as documented ENT Ears, Nose, Mouth, and Throat: Reports system reviewed and no additional complaints, except as documented *Cardiovascular Cardiovascular: Reports system reviewed and no additional complaints, except as documented, Denies chest pain, Reports diaphoresis and Denies dyspnea *Respiratory Respiratory: Reports system reviewed and no additional complaints, except as documented and Denies dyspnea *Gastrointestinal Gastrointestinal: Reports system reviewed and no additional complaints, except as documented *Genitourinary Genitourinary: Reports system reviewed and no additional complaints, except as documented *Musculoskeletal Musculoskeletal: Reports system reviewed and no additional complaints, except as documented Integumentary/Breasts Skin/Breast: Reports system reviewed and no additional complaints, except as documented *Neurologic Neurologic: Reports system reviewed and no additional complaints, except as documented Psychiatric Psychiatric: Reports system reviewed and no additional complaints, except as documented Endocrine Endocrine: Reports system reviewed and no additional complaints, except as documented Hematologic/Lymphatic Hematologic/Lymphatic: Reports system reviewed and no additional complaints, except as documented Allergic/Immunologic Allergic/Immunologic: Reports system reviewed and no additional complaints, except as documented Exam Data for Last 24 hours Vital signs and Labs for Last 24 Hours: Temp Pulse Resp BP Pulse Ox O2 Del Method 101.3 F H 109 H 18 148/83 H 95 Room Air 07/18/24 08:00 07/18/24 08:00 07/18/24 08:00 07/18/24 08:00 07/18/24 08:00 07/18/24 08:00 Laboratory Results - last 24 hr 07/17/24 23:00: Urine Color Yellow, Urine Appearance Clear, Urine pH 6.5, Ur Specific [place] 1.015, Urine Protein 1+ A, Urine Glucose (UA) Negative, Urine Ketones Negative, Urine Blood 3+ A, Urine Nitrate Negative, Urine Bilirubin Negative, Urine Urobilinogen 1.0, Ur Leukocyte Esterase Negative, Urine RBC 10-20, Urine WBC 3-5, Ur Squamous Epith Cells 3-5, Urine Bacteria Trace, Urine Opiates Screen Negative, Urine Methadone Screen Negative, Ur Barbituates Screen Negative, Ur Phencyclidine Scrn Negative, Ur Amphetamines Screen Negative, U Benzodiazepines Scrn Negative, Urine Cocaine Screen Negative, U Marijuana (THC) Screen Negative, Chlamy pneumoniae PCR Not detected, Adenovirus (PCR) Not detected, B. pertussis DNA (PCR) Not detected, Coronavirus OC43 (PCR) Not detected, Coronavirus HKU1 (PCR) Not detected, Coronavirus 229E (PCR) Not detected, SARS-CoV-2 (PCR) Not detected, Coronavirus NL63 (PCR) Not detected, Human Metapneumovir PCR Not detected, Influenza A (H1) PCR Not detected, Influ A (H1N1/09) PCR Not detected, Influenza A (H3) PCR Not detected, Influenza Type A (PCR) Not detected, Influenza Type B (PCR) Not detected, M. pneumoniae (PCR) Not detected, Parainfluenza 1 (PCR) Not detected, Parainfluenza 2 (PCR) Not detected, Parainfluenza 3 (PCR) Not detected, Parainfluenza 4 (PCR) Not detected, RSV (PCR) Not detected, Entero/Rhino (PCR) Not detected 07/17/24 23:05: PT 11.4, INR 1.02, APTT 33.8 L, Plasma/Serum Alcohol < 10 07/18/24 01:25: Troponin I 1.14 H 07/18/24 06:05: WBC 15.4 H, RBC 4.80, Hgb 15.1, Hct 44.4, MCV 92.4, MCH 31.4 H, MCHC 34.0, RDW 13.6, Plt Count 153, MPV 9.0, Neut % (Auto) 91.9 H, Lymph % (Auto) 3.3 L, [place] % (Auto) 3.4, Eos % (Auto) 0.8, Baso % (Auto) 0.5, Neut # (Auto) 14.2 H, Lymph # (Auto) 0.5 L, [place] # (Auto) 0.5, Eos # (Auto) 0.1, Baso # (Auto) 0.1, Total Counted 100, Neutrophils % (Manual) 96 H, Lymphocytes % (Manual) 2 L, Monocytes % (Manual) 2, Platelet Estimate Normal, RBC Morphology Normal, APTT 43.4 L, Sodium 138, Potassium 3.4 L, Chloride 109 H, Carbon Dioxide 23, Anion Gap 9.4, BUN 17, Creatinine 1.10, Estimated Creat Clear 109, Estimated GFR 69, Est GFR ( Amer) 84, Glucose 118 H, Hemoglobin A1c 5.4, Lactate 1.1, Calcium 8.4, Magnesium 1.6, Total Bilirubin 1.1, AST 41, ALT 25, Alkaline Phosphatase 57, Troponin I 1.07 H, C-Reactive Protein 143.4 H, Total Protein 6.4, Albumin 3.7, Globulin 2.7, Albumin/Globulin Ratio 1.4, Triglycerides 89, Cholesterol 181, LDL Cholesterol Direct 113.03, VLDL Cholesterol 18, HDL Cholesterol 37 L, Cholesterol/HDL Ratio 4.9 H, Procalcitonin 0.973 I & O for Last 24 hours: Intake & Output 07/15/24 07/16/24 07/17/24 07/18/24 23:59 23:59 23:59 23:59 Intake Total 707 / 707 Output Total 0 / 0 Balance 707 / 707 Weight 218 lb 12.8 oz 223 lb 12.307 oz Constitutional Constitutional: no acute distress and average body habitus *Routine HEENT Exam Head: Present normocephalic and atraumatic ENT: Present mucous membranes moist *Routine Neck Exam Neck: Present supple, full ROM and normal carotid upstroke; Absent JVD, carotid bruit or lymphadenopathy *Routine Respiratory Exam Respiratory: Present CTA bilaterally, normal respiratory effort, able to speak in complete sentences and symmetric chest movement *Routine Cardiovascular Exam Cardiovascular: Present RRR, Normal S1 and Normal S2; Absent murmur or gallop *Routine Abdominal Exam Abdominal: Present soft and normoactive bowel sounds; Absent tenderness, distended or organomegaly *Routine Extremities Exam Extremities: Present full ROM, pulses intact and normal capillary refill; Absent cyanosis, clubbing or edema *Routine Skin Exam Skin: Present intact and warm; Absent erythema *Routine Neurological Exam Neurological: Present alert, oriented X3 and CN II-XII intact; Absent sensory deficit or motor deficit Routine Psychiatric Exam Psychiatric: Present normal affect Meds Home Medications and Allergies Home Medications ?Medication ?Instructions ?Recorded ?Confirmed ?Type losartan 50 mg-hydrochlorothiazide 1 tab PO DAILY 07/17/24 07/17/24 History 12.5 mg tablet New Prescriptions to Start Prescriptions: Allergies Allergy/AdvReac Type Severity Reaction Status Date / Time No Known Allergies Allergy Verified 07/17/24 21:50 Assessment and Plan *Assessment and plan (1) Non-STEMI (non-ST elevated myocardial infarction): Status: Acute Category: Medical Code(s): I21.4 - Non-ST elevation (NSTEMI) myocardial infarction (2) HTN (hypertension): Status: Acute Qualifiers: Hypertension type: primary hypertension Qualified Code(s): I10 - Essential (primary) hypertension Category: Medical Code(s): I10 - Essential (primary) hypertension (3) Tobacco dependence: Status: Acute Category: Medical Code(s): F17.200 - Nicotine dependence, unspecified, uncomplicated (4) Sepsis with acute organ dysfunction: Status: Acute Qualifiers: Acute renal failure type: unspecified Sepsis type: sepsis due to unspecified organism Severe sepsis acute organ dysfunction type: acute renal failure Severe sepsis shock status: without septic shock Qualified Code(s): A41.9 - Sepsis, unspecified organism; R65.20 - Severe sepsis without septic shock; N17.9 - Acute kidney failure, unspecified Category: Medical Code(s): A41.9 - Sepsis, unspecified organism; R65.20 - Severe sepsis without septic shock (5) LOYD (obstructive sleep apnea): Status: Acute Category: Medical Code(s): G47.33 - Obstructive sleep apnea (adult) (pediatric) (6) YODIT (acute kidney injury): Status: Acute Category: Medical Code(s): N17.9 - Acute kidney failure, unspecified (7) Abnormal electrocardiogram [ECG] [EKG]: Status: Acute Category: Medical Code(s): R94.31 - Abnormal electrocardiogram [ECG] [EKG] Plan Plan: 1. This is a 53-year-old gentleman who was admitted to the hospital from [facility] due to sepsis and an elevated troponin. The patient had blood cultures drawn at [facility]. Results are currently pending. CT of the chest at [facility] showed no PE or pneumonia. Chest x-ray here today does show a subtle pneumonia which may be the cause of his sepsis. He does have a cough. He is currently getting IV antibiotics. Will defer to the hospitalist. 2. The patient remains febrile today which is most likely from his underlying infection and sepsis. 3. The patient does have an elevated troponin consistent with non-STEMI. He does have an abnormal EKG and is a tobacco user. The patient would benefit from left cardiac catheterization during this hospitalization. However, will wait until he has been approximately 24 hours without a fever prior to proceeding with an invasive left cardiac catheterization. The patient and his family verbalized understanding. 4. Echocardiogram shows a normal ejection fraction and no significant valve disease. 5. His blood pressure is acceptable. 6. His LDL goal is less than 55. His LDL is 113. He has been started on a statin. 7. Aspirin 81 mg daily due to the non-STEMI. 8. Do recommend Toprol which has already been started secondary to the non-STEMI. 9. Continue the heparin drip for his non-STEMI. 10. The patient did have acute kidney injury when he arrived at [facility]. He has been treated with IV fluids due to his sepsis. His renal function has normalized today. Will continue to follow. 11. Further recommendations were made pending the patient's response to treatment. Thank you for the opportunity to help participate in the care of this patient. All recommendations and orders are per Dr. Barajas.
[2024-07-18 13:58] LABS: PTT Heparin (inpatient only) 53.5 Seconds (50-75)
--- NOTE | 2024-07-18 17:56 | P.PN_ITS ---
Subjective *Date: 07/19/24 *Time: 14:40 Interval history: Patient looks weak today, but denies chest pain, shortness of breath. Exam Data for Last 24 hours Vital signs and Labs for Last 24 Hours: Temp Pulse Resp BP Pulse Ox O2 Del Method 98.6 F 86 19 140/82 95 Room Air 07/18/24 16:00 07/18/24 16:00 07/18/24 16:00 07/18/24 16:00 07/18/24 12:00 07/18/24 12:00 Laboratory Results - last 24 hr 07/17/24 23:00: Urine Color Yellow, Urine Appearance Clear, Urine pH 6.5, Ur Specific [place] 1.015, Urine Protein 1+ A, Urine Glucose (UA) Negative, Urine Ketones Negative, Urine Blood 3+ A, Urine Nitrate Negative, Urine Bilirubin Negative, Urine Urobilinogen 1.0, Ur Leukocyte Esterase Negative, Urine RBC 10- 20, Urine WBC 3-5, Ur Squamous Epith Cells 3-5, Urine Bacteria Trace, Urine Opiates Screen Negative, Urine Methadone Screen Negative, Ur Barbituates Screen Negative, Ur Phencyclidine Scrn Negative, Ur Amphetamines Screen Negative, U Benzodiazepines Scrn Negative, Urine Cocaine Screen Negative, U Marijuana (THC) Screen Negative, Chlamy pneumoniae PCR Not detected, Adenovirus (PCR) Not detected, B. pertussis DNA (PCR) Not detected, Coronavirus OC43 (PCR) Not detected, Coronavirus HKU1 (PCR) Not detected, Coronavirus 229E (PCR) Not detected, SARS-CoV-2 (PCR) Not detected, Coronavirus NL63 (PCR) Not detected, Human Metapneumovir PCR Not detected, Influenza A (H1) PCR Not detected, Influ A (H1N1/09) PCR Not detected, Influenza A (H3) PCR Not detected, Influenza Type A (PCR) Not detected, Influenza Type B (PCR) Not detected, M. pneumoniae (PCR) Not detected, Parainfluenza 1 (PCR) Not detected, Parainfluenza 2 (PCR) Not detected, Parainfluenza 3 (PCR) Not detected, Parainfluenza 4 (PCR) Not detected, RSV (PCR) Not detected, Entero/Rhino (PCR) Not detected 07/17/24 23:05: PT 11.4, INR 1.02, APTT 33.8 L, Plasma/Serum Alcohol < 10 07/18/24 01:25: Troponin I 1.14 H 07/18/24 06:05: WBC 15.4 H, RBC 4.80, Hgb 15.1, Hct 44.4, MCV 92.4, MCH 31.4 H, MCHC 34.0, RDW 13.6, Plt Count 153, MPV 9.0, Neut % (Auto) 91.9 H, Lymph % (Auto) 3.3 L, [place] % (Auto) 3.4, Eos % (Auto) 0.8, Baso % (Auto) 0.5, Neut # (Auto) 14.2 H, Lymph # (Auto) 0.5 L, [place] # (Auto) 0.5, Eos # (Auto) 0.1, Baso # (Auto) 0.1, Total Counted 100, Neutrophils % (Manual) 96 H, Lymphocytes % (Manual) 2 L, Monocytes % (Manual) 2, Platelet Estimate Normal, RBC Morphology Normal, APTT 43.4 L, Sodium 138, Potassium 3.4 L, Chloride 109 H, Carbon Dioxide 23, Anion Gap 9.4, BUN 17, Creatinine 1.10, Estimated Creat Clear 109, Estimated GFR 69, Est GFR ( Amer) 84, Glucose 118 H, Hemoglobin A1c 5.4, Lactate 1.1, Calcium 8.4, Magnesium 1.6, Total Bilirubin 1.1, AST 41, ALT 25, Alkaline Phosphatase 57, Troponin I 1.07 H, C-Reactive Protein 143.4 H, Total Protein 6.4, Albumin 3.7, Globulin 2.7, Albumin/Globulin Ratio 1.4, Triglycerides 89, Cholesterol 181, LDL Cholesterol Direct 113.03, VLDL Cholesterol 18, HDL Cholesterol 37 L, Cholesterol/HDL Ratio 4.9 H, Procalcitonin 0.973 07/18/24 13:30: APTT 53.5 I & O for Last 24 hours: Intake & Output 07/15/24 07/16/24 07/17/24 07/18/24 23:59 23:59 23:59 23:59 Intake Total 787 / 787 Output Total 0 / 0 Balance 787 / 787 Weight 99.246 kg 101.5 kg Constitutional Constitutional: no acute distress *Routine HEENT Exam Head: Present normocephalic Eye: Present EOMI and PERRL ENT: Present mucous membranes moist *Routine Neck Exam Neck: Present supple; Absent lymphadenopathy *Routine Respiratory Exam Respiratory: Present CTA bilaterally *Routine Cardiovascular Exam Cardiovascular: Present RRR *Routine Abdominal Exam Abdominal: Present soft and normoactive bowel sounds; Absent tenderness *Routine Extremities Exam Extremities: Absent cyanosis, clubbing or edema *Routine Skin Exam Skin: Present warm; Absent rash *Routine Neurological Exam Neurological: Present alert and oriented X3 Assessment and Plan *Assessment and plan (1) Non-STEMI (non-ST elevated myocardial infarction): Status: Acute Category: Medical Code(s): I21.4 - Non-ST elevation (NSTEMI) myocardial infarction (2) LOYD (obstructive sleep apnea): Status: Acute Category: Medical Code(s): G47.33 - Obstructive sleep apnea (adult) (pediatric) (3) Sepsis: Status: Acute Category: Medical Code(s): A41.9 - Sepsis, unspecified organism (4) Community acquired pneumonia: Status: Acute Category: Medical Code(s): J18.9 - Pneumonia, unspecified organism Plan Parag Henriquez is a 53-year-old male with a medical history significant for hypertension, chronic tobacco use who presents as a transfer from [facility] admitted for sepsis secondary to community-acquired pneumonia, and NSTEMI. #Sepsis #Community acquired pneumonia ? WBC improved from 20 (OSH labs), to 15.4 today. Continues to have fever up to 101.3 Fahrenheit. - Continue Rocephin, azithryomycin day 1. - Follow-up OSH blood, urine cultures. ? Continue NS at 100 mL/h. #NSTEMI ? Initial troponin 1.14->1.07. EKG without acute ischemic changes. ? Cardiology consulted, recommended LHC before discharge. Will need at least 24 hours without fever. ? Aspirin 81 mg, atorvastatin 80 mg. ? Continue heparin drip. #Hypertension ? BP stable at this time. Resume home medications once appropriate. Full code DVT prophylaxis: Heparin drip
--- NOTE | 2024-07-18 18:15 | PC.NURSE ---
Patient has had 2 fevers this shift. Patient responded well to tylenol. Patient has had no c/o chest pain this shift.
[2024-07-18] MEDS: NICOTINE 21MG/24HR PATCH 21 MG TD (18:31)
[2024-07-18] MEDS: MULTIVITAMIN TABLET 1 EACH PO (18:31)
[2024-07-18 19:14] LABS: PTT Heparin (inpatient only) 46.4 Seconds (50-75)
[2024-07-18] MEDS: HEPARIN SODIUM,PORCINE/D5W 500 ML 28 UNIT IV (19:45)
[2024-07-18] MEDS: ATORVASTATIN 40MG TABLET 80 MG PO (20:32)
[2024-07-18] MEDS: PANTOPRAZOLE 40MG TABLET 40 MG PO (20:32)
--- NOTE | 2024-07-18 22:39 | CA_ITS ---
APPROVED REPORT EXAM: Comprehensive 2D, Doppler, and color-flow Echocardiogram Deposition Operator: Jeanna Garcia CRT Ht: 5 ft 6 in Wt: 218lbs BSA: 2.07 BP: 127/75 mmHg Indications: Non STEMI, Hypertension/HDD, smoker, bourbon use daily, LOYD 2D Dimensions LA Volume 42.90 mL LA Volume Index 20.10 mL/m2 (M/F) 16-34 M-Mode Dimensions RVDd 2.61 cm (0.9-2.6) LA Diam 3.96 cm (1.9-4.0) LVDd 4.69 cm (3.5-5.7) LVDs 3.58 cm (3.5-5.7) IVSd 1.43 cm (0.6-1.1) PWd 1.11 cm (0.6-1.1) EF (Teich) 47.30% FS 23.70% EDV (Teich) 101.90 mL TAPSE 2.29 (<1.7) ESV (Teich) 53.70 mL LV Diastology E Decel Time 143 (160-240 msec) E/A Ratio 1.20 MED A' 17.10 cm/s LAT A' 17.40 cm/s Aortic Valve AO Peak GR. 8.50 mmHg Mitral Valve MV E Max Malcolm. 82.0 (40-130 cm/s) MV A Velocity 68.0 (40-130 cm/s) E/A Ratio 1.20 MV PHT 42.0 ms Pulmonary Valve PV Peak Velocity 94.0 (50-150 cm/s) Tricuspid Valve TR P. Velocity 196.00 cm/s RAP Estimate 10.00 mmHg RVSP 25.40 mmHg Left Ventricle The left ventricle is normal size. The left ventricular systolic function is normal. The left ventricular ejection fraction is within the normal range. There is increased LV wall thickness. There is normal LV segmental wall motion. The left ventricular diastolic function is normal. LVEF is 60%. Right Ventricle The right ventricle is normal size. The right ventricular systolic function is normal. Atria The left atrium size is normal. The right atrium size is normal. There is no Doppler evidence of interatrial shunt. Aortic Valve The aortic valve is mildly thickened. There is no aortic valvular stenosis. No aortic regurgitation is present. Mitral Valve The mitral valve is normal in structure. No evidence of mitral valve stenosis. Trace mitral valve regurgitation noted. Tricuspid Valve The tricuspid valve leaflets are thin and pliable. Trace tricuspid regurgitation. There is insufficient TR jet to estimate RVSP. Pulmonic Valve The pulmonary valve is normal in structure. Trace pulmonic regurgitation. Great Vessels The aortic root is normal in size. The ascending aorta is not well-visualized. IVC is normal in size and collapses >50% with inspiration. Pericardium There is no pericardial effusion. Other Information Study Quality: Fair Conclusion Normal biventricular systolic function. No regional wall motion abnormalities are noted. No significant valvular stenosis or regurgitation. Electronically signed by : Jennifer Barajas MD 07/18/2024 12:33:58
[2024-07-19] VITALS (7 sets, daily range): BP systolic 127–158; BP diastolic 74–91; PULSE 66–89; RESP 16–24; TEMP 36.6–37.7; O2SAT 93–97; BMI 34.7
[2024-07-19 01:35] LABS: PTT Heparin (inpatient only) 56.3 Seconds (50-75)
[2024-07-19] MEDS: LACTATED RINGERS 1000ML 1,000 ML 125 ML IV (04:44)
--- NOTE | 2024-07-19 05:17 | PC.NURSE ---
Patient alert and oriented x4. Tolerating room air well. has remained at bedside throughout the night. Heparin gtt currently running at 1400 units/hr. LR @ 125 mls/hr. Patient had a fever of 101.1 around 2230 and was treated per OCT. No complaints of chest pain or shortness of breath this shift. Has ambulated to/from restroom independently. Call light within reach.
[2024-07-19 08:15] LABS: Albumin Level 3.4 g/dl (3.5-5.0); Chloride 111 mmol/L (98-107); Sodium 136 mmol/L (136-145)
[2024-07-19 08:16] LABS: Potassium 4.2 mmoL/L (3.5-5.1)
[2024-07-19 08:18] LABS: Alanine Aminotransferase 30 U/L (12-78); Albumin/Globulin Ratio 1.2 (1.1-1.8); Alkaline Phosphatase 47 U/L (38-126); Anion Gap 8.2 mEq/L (5-15); Aspartate Amino Transferase 56 U/L (17-59); Bilirubin,Total 1.1 mg/dl (0.2-1.3); Blood Urea Nitrogen 13 mg/dl (9-20); Carbon Dioxide 21 mmol/L (22.0-30.0); Creatinine Clearance Estimated 148 mL/min (50-200); Estimated Glomerular Filt Rate 100 ml/min (>60); GFR (African American) 121 ML/MIN (>60); Globulin 2.9 g/dL (1.3-3.2); Total Protein,Serum 6.3 g/dl (6.3-8.2)
[2024-07-19 08:19] LABS: Calcium 8.1 mg/dl (8.4-10.2); Glucose 111 mg/dl (74-100); PTT Heparin (inpatient only) 47.2 Seconds (50-75)
[2024-07-19 08:34] LABS: Basophils % 0.3 % (0.1-2.0); Eosinophils # 0.1 K/mm3 (0.0-0.4); Hematocrit 40.1 % (42.0-52.0); Hemoglobin 13.7 g/dL (14.1-18.0); Lymphocytes # 0.5 K/mm3 (0.7-4.5); Mean Corpuscular HGB Conc 34.2 g/dL (31.8-35.4); Mean Corpuscular Hemoglobin 31.9 pg (27.0-31.2); Mean Corpuscular Volume 93.2 fl (80-94); Mean Platelet Volume 9.2 fl (7.4-10.4); Monocytes # 0.3 K/mm3 (0.1-1.0); Monocytes % 4.3 % (1.7-9.3); Neutrophils # 6.4 K/mm3 (1.8-7.8); Neutrophils % 87.5 % (37.0-80.0); Platelet Count 140 K/mm3 (142-424); Red Blood Count 4.31 M/mm3 (4.60-6.20); Red Cell Distribution Width 13.4 % (11.5-17.5); White Blood Count 7.3 K/mm3 (4.8-10.8)
[2024-07-19] MEDS: HEPARIN SODIUM 5,000 UNIT/ML VIAL 3000 UNIT IV ×2 (08:40→20:39)
[2024-07-19] MEDS: METOPROLOL SUCCINATE XL 50MG TABLET 50 MG PO (08:41)
[2024-07-19] MEDS: ASPIRIN EC 81MG TABLET 81 MG PO (08:41)
[2024-07-19] MEDS: HEPARIN SODIUM,PORCINE/D5W 500 ML 32 UNIT IV ×2 (08:41→15:11)
[2024-07-19] MEDS: CEFTRIAXONE SODIUM 1 GM in 0.9 % SODIUM CHLORIDE 50 ML IV (08:41)
[2024-07-19] MEDS: FOLIC ACID 1MG TABLET 1 MG PO (08:41)
[2024-07-19] MEDS: THIAMINE 100MG TABLET 100 MG PO (08:41)
[2024-07-19 08:55] LABS: Procalcitonin 0.625 ng/mL (0.0-2.0)
[2024-07-19 08:55] LABS: MANUAL DIFFERENTIAL MANUAL DIFFERENTIAL (MANUAL DIFF)
[2024-07-19 10:08] LABS: Lymphocytes % 8 % (10-50); Monocytes % 3 % (2-9); Neutrophils % 89 % (42-76); Platelet Estimate Normal; RBC Morphology Normal; Total Cells Counted 100
--- NOTE | 2024-07-19 11:34 | EXP.CARD.PN ---
Subjective Subjective Date: 07/19/24 Time: 10:00 Principal diagnosis: Non-STEMI, sepsis Interval history: This is a 53-year-old gentleman who presented to the hospital with complaints of weakness and chills. The patient is currently admitted with sepsis and probable pneumonia. He also had an elevated troponin consistent with a non-STEMI. The patient had fevers yesterday until around 10 PM. Since that time he has been afebrile. This morning he states that he is feeling better just still very fatigued and feels worn out. He denies any chest pain or pressure. He denies any shortness of breath or edema. He denies any fever, chills, nausea, vomiting, diarrhea, PND orthopnea this morning. Exam Data for Last 24 hours Vital signs and Labs for Last 24 Hours: Temp Pulse Resp BP Pulse Ox O2 Del Method 98.1 F 81 19 127/87 94 L Room Air 07/19/24 08:00 07/19/24 08:00 07/19/24 08:00 07/19/24 08:00 07/19/24 08:00 07/19/24 08:00 Laboratory Results - last 24 hr 07/18/24 13:30: APTT 53.5 07/18/24 18:20: APTT 46.4 L 07/19/24 01:15: APTT 56.3 07/19/24 07:07: APTT 47.2 L, Sodium 136, Potassium 4.2 D, Chloride 111 H, Carbon Dioxide 21 L, Anion Gap 8.2, BUN 13, Creatinine 0.80 D, Estimated Creat Clear 148, Estimated GFR 100, Est GFR ( Amer) 121 D, Glucose 111 H, Calcium 8.1 L, Total Bilirubin 1.1, AST 56 D, ALT 30, Alkaline Phosphatase 47, Total Protein 6.3, Albumin 3.4 L, Globulin 2.9, Albumin/Globulin Ratio 1.2, Procalcitonin 0.625 07/19/24 08:24: WBC 7.3 D, RBC 4.31 L, Hgb 13.7 L, Hct 40.1 L, MCV 93.2, MCH 31.9 H, MCHC 34.2, RDW 13.4, Plt Count 140 L, MPV 9.2, Neut % (Auto) 87.5 H, Lymph % (Auto) 7.0 L, [place] % (Auto) 4.3, Eos % (Auto) 1.0, Baso % (Auto) 0.3, Neut # (Auto) 6.4, Lymph # (Auto) 0.5 L, [place] # (Auto) 0.3, Eos # (Auto) 0.1, Baso # (Auto) 0.0, Total Counted 100, Neutrophils % (Manual) 89 H, Lymphocytes % (Manual) 8 L, Monocytes % (Manual) 3, Platelet Estimate Normal, RBC Morphology Normal I & O for Last 24 hours: Intake & Output 07/16/24 07/17/24 07/18/24 07/19/24 23:59 23:59 23:59 23:59 Intake Total 1267 / 1267 360 / 360 Output Total 0 / 0 0 / 0 Balance 1267 / 1267 360 / 360 Weight 218 lb 12.8 oz 223 lb 12.307 oz 221 lb 6.4 oz Microbiology Reports for the Last 24 Hours: Microbiology 07/17/24 23:00 Nose MRSA Culture - Final Negative Constitutional Constitutional: no acute distress and average body habitus *Routine HEENT Exam Head: Present normocephalic and atraumatic ENT: Present mucous membranes moist *Routine Neck Exam Neck: Present supple, full ROM and normal carotid upstroke; Absent JVD, carotid bruit or lymphadenopathy *Routine Respiratory Exam Respiratory: Present CTA bilaterally, normal respiratory effort, able to speak in complete sentences and symmetric chest movement *Routine Cardiovascular Exam Cardiovascular: Present RRR, Normal S1 and Normal S2; Absent murmur or gallop *Routine Abdominal Exam Abdominal: Present soft and normoactive bowel sounds; Absent tenderness, distended or organomegaly *Routine Extremities Exam Extremities: Present full ROM, pulses intact and normal capillary refill; Absent cyanosis, clubbing or edema *Routine Skin Exam Skin: Present intact and warm; Absent erythema *Routine Neurological Exam Neurological: Present alert, oriented X3 and CN II-XII intact; Absent sensory deficit or motor deficit Routine Psychiatric Exam Psychiatric: Present normal affect Progress Note: A&P Assessment and plan (1) Non-STEMI (non-ST elevated myocardial infarction): Status: Acute (2) HTN (hypertension): Status: Acute (3) Tobacco dependence: Status: Acute (4) Sepsis with acute organ dysfunction: Status: Acute (5) LOYD (obstructive sleep apnea): Status: Acute (6) YODIT (acute kidney injury): Status: Acute (7) Abnormal electrocardiogram [ECG] [EKG]: Status: Acute Assessment and Plan Assessment and Plan for All Diagnoses:: Plan: 1. This is a 53-year-old gentleman who was admitted to the hospital from [facility] due to sepsis and an elevated troponin. The patient had blood cultures drawn at [facility]. Results are currently pending. CT of the chest at [facility] showed no PE or pneumonia. Chest x-ray here today does show a probable pneumonia which may be the cause of his sepsis. He does have a cough. He is currently getting IV antibiotics. Will defer to the hospitalist. 2. The patient's last fever was at 10 PM last night. He is now afebrile this morning. 3. The patient does have an elevated troponin consistent with non-STEMI. He does have an abnormal EKG and is a tobacco user. The patient would benefit from left cardiac catheterization during this hospitalization. Will plan to proceed with left cardiac catheterization once he has been afebrile for greater than 24 hours. Will anticipate proceeding with left cardiac catheterization tomorrow. 4. Echocardiogram shows a normal ejection fraction and no significant valve disease. 5. His blood pressure is well-controlled. 6. His LDL goal is less than 55. His LDL is 113. He has been started on a statin. 7. Aspirin 81 mg daily due to the non-STEMI. 8. Continue Toprol. 9. Continue the heparin drip for his non-STEMI. 10. His renal function remains normal. 11. Further recommendations will be made pending the patient's response to treatment. Thank you for the opportunity to help participate in the care of this patient. All recommendations and orders are per Dr. Barajas.
[2024-07-19 13:32] LABS: PTT Heparin (inpatient only) 62.6 Seconds (50-75)
--- NOTE | 2024-07-19 15:11 | P.PN_ITS ---
Subjective *Date: 07/19/24 *Time: 15:11 Interval history: Patient states he is doing much better than yesterday, looks better. Denies chest pain, shortness of breath. Exam Data for Last 24 hours Vital signs and Labs for Last 24 Hours: Temp Pulse Resp BP Pulse Ox O2 Del Method 97.9 F 78 24 158/74 H 93 L Room Air 07/19/24 12:00 07/19/24 12:00 07/19/24 12:00 07/19/24 12:00 07/19/24 12:00 07/19/24 12:00 Laboratory Results - last 24 hr 07/18/24 18:20: APTT 46.4 L 07/19/24 01:15: APTT 56.3 07/19/24 07:07: APTT 47.2 L, Sodium 136, Potassium 4.2 D, Chloride 111 H, Carbon Dioxide 21 L, Anion Gap 8.2, BUN 13, Creatinine 0.80 D, Estimated Creat Clear 148, Estimated GFR 100, Est GFR ( Amer) 121 D, Glucose 111 H, Calcium 8.1 L, Total Bilirubin 1.1, AST 56 D, ALT 30, Alkaline Phosphatase 47, Total Protein 6.3, Albumin 3.4 L, Globulin 2.9, Albumin/Globulin Ratio 1.2, Procalcitonin 0.625 07/19/24 08:24: WBC 7.3 D, RBC 4.31 L, Hgb 13.7 L, Hct 40.1 L, MCV 93.2, MCH 31.9 H, MCHC 34.2, RDW 13.4, Plt Count 140 L, MPV 9.2, Neut % (Auto) 87.5 H, Lymph % (Auto) 7.0 L, Door % (Auto) 4.3, Eos % (Auto) 1.0, Baso % (Auto) 0.3, Neut # (Auto) 6.4, Lymph # (Auto) 0.5 L, [place] # (Auto) 0.3, Eos # (Auto) 0.1, Baso # (Auto) 0.0, Total Counted 100, Neutrophils % (Manual) 89 H, Lymphocytes % (Manual) 8 L, Monocytes % (Manual) 3, Platelet Estimate Normal, RBC Morphology Normal 07/19/24 13:12: APTT 62.6 I & O for Last 24 hours: Intake & Output 07/16/24 07/17/24 07/18/24 07/19/24 23:59 23:59 23:59 23:59 Intake Total 1267 / 1267 720 / 720 Output Total 0 / 0 0 / 0 Balance 1267 / 1267 720 / 720 Weight 99.246 kg 101.5 kg 100.425 kg Microbiology Reports for the Last 24 Hours: Microbiology 07/17/24 23:00 Nose MRSA Culture - Final Negative Constitutional Constitutional: no acute distress *Routine HEENT Exam Head: Present normocephalic Eye: Present EOMI and PERRL ENT: Present mucous membranes moist *Routine Neck Exam Neck: Present supple; Absent lymphadenopathy *Routine Respiratory Exam Respiratory: Present CTA bilaterally *Routine Cardiovascular Exam Cardiovascular: Present RRR *Routine Abdominal Exam Abdominal: Present soft and normoactive bowel sounds; Absent tenderness *Routine Extremities Exam Extremities: Absent cyanosis, clubbing or edema *Routine Skin Exam Skin: Present warm; Absent rash *Routine Neurological Exam Neurological: Present alert and oriented X3 Assessment and Plan *Assessment and plan (1) Non-STEMI (non-ST elevated myocardial infarction): Status: Acute Category: Medical Code(s): I21.4 - Non-ST elevation (NSTEMI) myocardial infarction (2) LOYD (obstructive sleep apnea): Status: Acute Category: Medical Code(s): G47.33 - Obstructive sleep apnea (adult) (pediatric) (3) Sepsis: Status: Acute Category: Medical Code(s): A41.9 - Sepsis, unspecified organism (4) Community acquired pneumonia: Status: Acute Category: Medical Code(s): J18.9 - Pneumonia, unspecified organism Plan Parag Henriquez is a 53-year-old male with a medical history significant for hypertension, chronic tobacco use who presents as a transfer from [facility] admitted for sepsis secondary to community-acquired pneumonia, and NSTEMI. #Sepsis #Community acquired pneumonia ? WBC improved from 15.4 to 7.3 today. Had fever of 101.1 at 10:30 PM last night. ? Patient states he is doing much better than yesterday, looks better. Denies chest pain, shortness of breath. - Continue Rocephin, azithryomycin day 2. - Follow-up OSH blood, urine cultures. ? Discontinue LR fluids as patient is tolerating diet very well. #NSTEMI ? Initial troponin 1.14->1.07. EKG without acute ischemic changes. ? ECHO showed normal biventricular function. No wall motion abnormalities. ? Cardiology consulted, recommended [facility] before discharge. Will need at least 24 hours without fever. ? Aspirin 81 mg, atorvastatin 80 mg. ? Continue heparin drip. #Hematuria ? UA shows 3+ blood with RBCs. ? Unclear if this is from UTI, will follow-up OSH urine cultures. ? Will need to follow-up with PCP for further evaluation. #Hypertension ? BP stable at this time. Resume home medications once appropriate. Full code DVT prophylaxis: Heparin drip
[2024-07-19] MEDS: MULTIVITAMIN TABLET 1 EACH PO (19:16)
[2024-07-19 19:40] LABS: PTT Heparin (inpatient only) 45.7 Seconds (50-75)
[2024-07-19] MEDS: ATORVASTATIN 40MG TABLET 80 MG PO (20:39)
[2024-07-19] MEDS: PANTOPRAZOLE 40MG TABLET 40 MG PO (20:39)
[2024-07-19] MEDS: HEPARIN SODIUM,PORCINE/D5W 500 ML 36 UNIT IV (20:41)
[2024-07-19] MEDS: NICOTINE 21MG/24HR PATCH 21 MG TD (22:06)
--- OUTSIDE RECORDS SUMMARY | 2024-07-19 22:26 | XMS_ITS | Clinical Summary ---
Author Organization [employer] Address [address] [place] [address] Care Team Providers Care Conference Organizer Name Role Phone Derick Peres MD Primary Care Provider [phone] No known active allergies Medications sodium-potassium -mag sulfates (Suprep Bowel Prep Kit) 17.5-3.13-1.6 gram solution Take 177 mLs by mouth 2 (two) times daily for 2 doses. 354 mL 07/28/2024 Active Active Problems Problem Noted Date Diagnosed Date Screen for colon cancer 05/25/2024 Encounters Date Type Department Care Team Description 05/25/2024 Orders Only [facility] [address] [place] [address] [address] Suraj Martin MD 05/25/2024 Orders Only [facility] [address] [place] [address] [address] Suraj Martin MD Gastroesophageal reflux disease without esophagitis (Primary Dx); Screen for colon cancer 04/19/2024 Outside Orders [facility] [address] [place] [address] [address] Derick Peres MD Screening for colon cancer [...] Date Naun rded Speak language other than Thai at home Not on file 04/19/2024 Want [...] Team (Late st Contact Info) Description 07/29/2024 10:03 AM EST Hospital Encounter [facility] [address] [place] [address] Suraj Martin MD [address] [place] [address] 07/29/2024 10:03 AM EST - 07/29/2024 10:53 AM EST Surgery [facility] [address] [place] [address] Suraj Martin MD [address] [place] [address] [address] COLONOSCOPY Scheduled Procedures Name Priority Associated Diagnoses Date/Ti ny COLONOSCOPY Screen for colon cancer 07/29/2024 10:03 AM EST EGD (ESOPHAGOGASTRODUODENOSCOPY ) Screen for colon cancer 07/29/2024 10:03 AM EST Health Maintenance Due Date Last [...] 2024 Insurance BLUE CROSS/BLUE SHIELD Care Teams Conference Organizer Relationship Specialty Start Date End Date Derick Peres MD [address] [place] [address] PCP - General Emergency Medicine 04/19/24
--- OUTSIDE RECORDS SUMMARY | 2024-07-19 22:27 | XMS_ITS | Encounter Summary ---
Author Organization [employer] Address [address] [place] [address] Care Team Providers Care Television Parts Tester Name Role Phone Derick Peres MD Primary Care Provider [phone] Reason for Referral * Surgical (Routine) - Authorized Specialty Diagnoses / Procedures Referred By Contact Referred To Contact General Surgery Diagnoses Screening for colon cancer Gastro-esophageal reflux disease without esophagitis Procedures COLONOSCOPY CA ESOPHAGOGASTRODUODENOSCOPY TRANSORAL DIAGNOSTIC Mailed Letter 05/05/24 GIVE TO Derick Hernandez MD [address] [place] [address] Phone: tel:[phone] fax:[phone] Suraj Martin MD [address] [facility] [address] [place] [address] Phone: tel:[phone] fax:[phone] Referral ID Status Reason Start Date Expiration Date Visits Requested Visits Authorized [id number] Authorized Specialty Services Required 04/19/2024 04/19/2025 1 1 Encounter Details Date Type Department Care Team (Late st Contact Info) Description 04/19/2024 Outside Orders [facility] [address] [facility] [address] [place] [address] Derick Peres MD [address] [place] [address] Screening for colon cancer (Primary [...] Date Naun rded Speak language other than Citizen [place] at home Not on file 04/19/2024 Want [...] Description 07/29/2024 10:03 AM EST Hospital Encounter [facility] 1 [place] [address] Suraj Martin MD [address] [place] [address] [address] [id number] 07/29/2024 10:03 AM EST - 07/29/2024 10:53 AM EST Surgery [facility] 1 [place] [address] Suraj Martin MD [address] [facility] [place] [address] COLONOSCOPY Scheduled Procedures Name Priority Associated Diagnoses Date/Ti me COLONOSCOPY Screen for colon cancer 07/29/2024 10:03 AM EST EGD (ESOPHAGOGASTRODUODENOSCOPY ) Screen for colon cancer 07/29/2024 10:03 AM EST Scheduled Referrals Name Type Priority Associated Diagnoses Order Schedule Ambulatory referral to General Surgery Outpatient Referral Routine Screening for colon cancer Expected: 04/19/2024, Expires: 04/19/2025 documented as of this encounter Visit Diagnoses Diagnosis Screening for colon cancer- Primary Special screening for malignant neoplasms, colon Screen for colon cancer Special screening for malignant neoplasms, colon documented in this encounter Care Teams Television Parts Tester Relationship Specialty Start Date End Date Derick Peres MD [address] [place] [id number] PCP - General Emergency Medicine 04/19/24 documented as of this encounter
--- OUTSIDE RECORDS SUMMARY | 2024-07-19 22:27 | XMS_ITS | Encounter Summary ---
Author Organization [employer] Address [address] [place] [address] Care Team Providers Care Jet Wiper Name Role Phone Derick Peres MD Primary Care Provider [phone] Encounter Details Date Type Department Care Team (Late st Contact Info) Description 05/25/2024 Orders Only [facility] [address] [facility] [address] [place] [address] Suraj Martin MD [address] [facility] [address] [place] [id number] Social History Tobacco Use Types Packs/Day Years [...] Date Naun rded Speak language other than Khmer at home Not on file 04/19/2024 Want [...] Description 07/29/2024 10:03 AM EST Hospital Encounter [facility] 1 [place] [address] Suraj Martin MD [address] [place] [address] [address] 07/29/2024 10:03 AM EST - 07/29/2024 10:53 AM EST Surgery [facility] 1 [place] [address] Suraj Martin MD [address] [place] [address] COLONOSCOPY Scheduled Procedures Name Priority Associated Diagnoses Date/Ti me COLONOSCOPY Screen for colon cancer 07/29/2024 10:03 AM EST EGD (ESOPHAGOGASTRODUODENOSCOPY ) Screen for colon cancer 07/29/2024 10:03 AM EST documented as of this encounter Visit Diagnoses Not on filedocumented in this encounter Care Teams Jet Wiper Relationship Specialty Start Date End Date Derick Peres MD [address] [place] [phone] PCP - General Emergency Medicine 04/19/24 documented as of this encounter
--- OUTSIDE RECORDS SUMMARY | 2024-07-19 22:27 | XMS_ITS | Referral Summary ---
Author Organization [employer] Address [address] [place] [address] Care Team Providers Care Side Sawyer Name Role Phone Derick Peres MD Primary Care Provider [phone] Encounters Date Type Department Care Team Description 05/25/2024 Orders Only [facility] [address] [place] [address] [address] Suraj Martin MD 05/25/2024 Orders Only [facility] [address] [place] [address] [address] Suraj Martin MD Gastroesophageal reflux disease without esophagitis (Primary Dx); Screen for colon cancer 04/19/2024 Outside Orders [facility] [address] [place] [address] [address] Derick Peres MD Screening for [...] Date Naun rded Speak language other than Zimbabwean at home Not on file 04/19/2024 Want [...] Description 07/29/2024 10:03 AM EST Hospital Encounter [facility] 1 [place] [address] Suraj Martin MD [address] [place] [address] 07/29/2024 10:03 AM EST - 07/29/2024 10:53 AM EST Surgery [facility] 1 [place] [address] Suraj Martin MD [address] [place] [address] [address] COLONOSCOPY Scheduled Procedures Name Priority Associated Diagnoses Date/Ti ca COLONOSCOPY Screen for colon cancer 07/29/2024 10:03 AM EST EGD (ESOPHAGOGASTRODUODENOSCOPY ) Screen for colon cancer 07/29/2024 10:03 AM EST Insurance BLUE CROSS/BLUE SHIELD Care Teams Side Sawyer Relationship Specialty Start Date End Date Derick Peres MD [address] [place] [phone] PCP - General Emergency Medicine 04/19/24
--- OUTSIDE RECORDS SUMMARY | 2024-07-19 22:27 | XMS_ITS | Encounter Summary ---
Author Organization [employer] Address [address] [place] [address] Care Team Providers Care Clerk To Justice Name Role Phone Derick Peres MD Primary Care Provider [phone] Encounter Details Date Type Department Care Team (Late st Contact Info) Description 05/25/2024 Orders Only [facility] [address] [facility] [address] [place] [address] Suraj Martin MD [address] [facility] [address] [place], [place] [id number] Gastroesophageal reflux disease without esophagitis (Primary Dx); [...] Date Naun rded Speak language other than Italian at home Not on file 04/19/2024 Want [...] Description 07/29/2024 10:03 AM EST Hospital Encounter [facility] 1 [place] [address] Suraj Martin MD [address] [place] [address] 07/29/2024 10:03 AM EST - 07/29/2024 10:53 AM EST Surgery [facility] [address] [place] [address] Suraj Martin MD [address] [place] [address] COLONOSCOPY Scheduled Procedures Name Priority Associated Diagnoses Date/Ti sc COLONOSCOPY Screen for colon cancer 07/29/2024 10:03 [...] colon documented in this encounter Care Teams Clerk To Justice Relationship Specialty Start Date End Date Derick Peres MD [address] [place] [address] PCP - General Emergency Medicine 04/19/24 documented as of this encounter
[2024-07-20] VITALS (18 sets, daily range): BP systolic 112–165; BP diastolic 76–104; PULSE 67–96; RESP 16–20; TEMP 36.4–37.4; O2SAT 92–100; BMI 34.8
[2024-07-20 03:19] LABS: PTT Heparin (inpatient only) 65.9 Seconds (50-75)
--- NOTE | 2024-07-20 04:39 | PC.NURSE ---
Patient alert and oriented x4. Tolerating room air well. has remained at bedside throughout the night. Highest temp recorded this shift was 99.9 degrees. Heparin gtt currently running at 1800 units/hr. LR discontinued previous shift. Patient NPO due to [facility] scheduled for today. No complaints of chest pain or shortness of breath this shift. Has ambulated to/from restroom independently. Call light within reach.
[2024-07-20] MEDS: HEPARIN SODIUM,PORCINE/D5W 500 ML 36 UNIT IV (06:53)
[2024-07-20 07:29] LABS: Basophils % 0.4 % (0.1-2.0); Eosinophils # 0.1 K/mm3 (0.0-0.4); Hematocrit 41.3 % (42.0-52.0); Hemoglobin 13.9 g/dL (14.1-18.0); Lymphocytes # 1.1 K/mm3 (0.7-4.5); Lymphocytes % 19.3 % (10-50); Mean Corpuscular HGB Conc 33.8 g/dL (31.8-35.4); Mean Corpuscular Hemoglobin 31.5 pg (27.0-31.2); Mean Corpuscular Volume 93.4 fl (80-94); Mean Platelet Volume 9.4 fl (7.4-10.4); Monocytes # 0.4 K/mm3 (0.1-1.0); Monocytes % 7.6 % (1.7-9.3); Neutrophils # 4.1 K/mm3 (1.8-7.8); Neutrophils % 70.6 % (37.0-80.0); Platelet Count 150 K/mm3 (142-424); Red Blood Count 4.42 M/mm3 (4.60-6.20); Red Cell Distribution Width 13.6 % (11.5-17.5); White Blood Count 5.8 K/mm3 (4.8-10.8)
[2024-07-20 07:33] LABS: Albumin Level 3.3 g/dl (3.5-5.0); Chloride 111 mmol/L (98-107); Potassium 3.7 mmoL/L (3.5-5.1); Sodium 134 mmol/L (136-145)
[2024-07-20 07:36] LABS: Alanine Aminotransferase 33 U/L (12-78); Albumin/Globulin Ratio 1.2 (1.1-1.8); Alkaline Phosphatase 72 U/L (38-126); Anion Gap 2.7 mEq/L (5-15); Aspartate Amino Transferase 41 U/L (17-59); Bilirubin,Total 0.7 mg/dl (0.2-1.3); Blood Urea Nitrogen 12 mg/dl (9-20); Carbon Dioxide 24 mmol/L (22.0-30.0); Creatinine Clearance Estimated 132 mL/min (50-200); Estimated Glomerular Filt Rate 88 ml/min (>60); GFR (African American) 106 ML/MIN (>60); Globulin 2.8 g/dL (1.3-3.2); Total Protein,Serum 6.1 g/dl (6.3-8.2)
[2024-07-20 07:37] LABS: Calcium 8.2 mg/dl (8.4-10.2); Glucose 106 mg/dl (74-100)
--- NOTE | 2024-07-20 08:31 | IR_ITS ---
APPROVED REPORT Patient Location: Inpatient PROCEDURES Left heart catheterization Left ventriculogram Selective coronary angiogram Drug-eluting stent deployment to the circumflex artery extending into the second obtuse marginal artery Intravascular ultrasound to the circumflex artery INDICATION Acute non-ST elevation myocardial infarction, Coronary artery disease Informed consent was obtained prior to the procedure. COMPLICATIONS NONE Estimated Blood Loss: LESS THAN 10 ML TECHNIQUE One percent lidocaine used to anesthetize the right anterior aspect of the wrist. The right radial artery was accessed via the Seldinger technique. A 6 Rw[place]an sheath was placed in the right radial artery. 2.5 mg of Verapamil, 800 mcg of nitroglycerin, 1mg Lidocaine and 5000 U Heparin were given through the arterial sheath. The 6 Rwandan JL 3 guide catheter r was also used to perform left heart catheterization, left ventriculogram and selective coronary angiogram. At the end of the diagnostic angiogram therapeutic heparin was administered giving a therapeutic ACT and the guide catheter was placed in left main artery followed by Choice PT extra-support wire placed in the second obtuse marginal artery. A 2.5 x 12 mm Car frontier stent was placed in the circumflex artery extending the second obtuse marginal artery and deployed at 20 joy. Excellent angiograph results were obtained. At the end of the procedure intravascular ultrasound probe was advanced due to a slight haziness at the distal transitioning of the stent. The intravascular ultrasound demonstrated excellent transitioning proximally and distally with wide patency of the stent. At the end of the procedure the apparatus was removed the sheath was removed and hemostasis was achieved and TR banding patient was transferred to the postop putting in stable condition ANGIOGRAPHIC RESULTS The left main artery Normal The left anterior descending artery Has proximal 20% stenosis with additional 10 to 20% stenosis proximal and distal to the first septal wheel setter and first diagonal artery. The remaining LAD is large caliber widely patent. The first diagonal artery has an ostial 30 to 40% stenosis The circumflex artery Is large and codominant. The second obtuse marginal artery has a concentric ostial proximal 70 to 80% hazy stenosis The right coronary artery Is codominant has proximal 30% stenosis with mid vessel 30% stenosis The CANDELARIO ventriculogram reveals Not performed The left ventricular end-diastolic pressure Not measured IMPRESSION Acute non-ST elevation myocardial infarction with the infarct vessel being the second obtuse marginal artery Successful stenting of the circumflex artery extending the second obtuse marginal artery severe disease reduced to 0% with 1 drug-eluting stent Moderate disease in the first diagonal artery with mild to moderate disease in the right coronary artery as described above PLAN 1. Dual antiplatelet therapy 2. Cardiac rehabilitation 3. LDL less than 55 achieved high intensity statin 4. Avoidance of tobacco products 5. Risk factor modification Electronically signed by : Alexey Vazquez MD 07/21/2024 15:47:01
[2024-07-20] MEDS: METOPROLOL SUCCINATE XL 50MG TABLET 50 MG PO (09:27)
[2024-07-20] MEDS: ASPIRIN EC 81MG TABLET 81 MG PO (09:27)
[2024-07-20] MEDS: THIAMINE 100MG TABLET 100 MG PO (09:27)
[2024-07-20] MEDS: ONDANSETRON 4MG/2ML VIAL 4 MG IV (09:27)
[2024-07-20] MEDS: CEFTRIAXONE SODIUM 1 GM in 0.9 % SODIUM CHLORIDE 50 ML IV (09:27)
[2024-07-20] MEDS: FOLIC ACID 1MG TABLET 1 MG PO (09:27)
[2024-07-20 09:35] LABS: PTT Heparin (inpatient only) 56.7 Seconds (50-75)
[2024-07-20] MEDS: AZITHROMYCIN 500 MG in 0.9 % SODIUM CHLORIDE 250 ML 250 MG IV (10:58)
--- NOTE | 2024-07-20 11:04 | P.PN_ITS ---
Subjective Subjective Date: 07/20/24 Time: 10:00 Principal diagnosis: Non-STEMI, sepsis Interval history: This is a 53-year-old gentleman who presented to the emergency department complaints of weakness and chills. The patient was admitted for sepsis from pneumonia and an elevated troponin consistent with a non-STEMI. The patient is currently still getting IV antibiotics. He has remained on a heparin drip for his non-STEMI. This morning he states he is still very fatigued but is starting to feel better. He denies any chest pain or pressure. He denies any shortness of breath or edema. He denies any fever, chills, nausea, vomiting, diarrhea, PND or orthopnea. Exam Data for Last 24 hours Vital signs and Labs for Last 24 Hours: Temp Pulse Resp BP Pulse Ox O2 Del Method 99.3 F 78 19 136/85 96 Room Air 07/20/24 08:00 07/20/24 08:00 07/20/24 08:00 07/20/24 08:00 07/20/24 08:00 07/20/24 10:12 Laboratory Results - last 24 hr 07/19/24 13:12: APTT 62.6 07/19/24 19:15: APTT 45.7 L 07/20/24 03:00: APTT 65.9 07/20/24 06:03: WBC 5.8, RBC 4.42 L, Hgb 13.9 L, Hct 41.3 L, MCV 93.4, MCH 31.5 H, MCHC 33.8, RDW 13.6, Plt Count 150, MPV 9.4, Neut % (Auto) 70.6, Lymph % (Auto) 19.3, [place] % (Auto) 7.6, Eos % (Auto) 2.0, Baso % (Auto) 0.4, Neut # (Auto) 4.1, Lymph # (Auto) 1.1, [place] # (Auto) 0.4, Eos # (Auto) 0.1, Baso # (Auto) 0.0, Sodium 134 L, Potassium 3.7, Chloride 111 H, Carbon Dioxide 24, Anion Gap 2.7 L, BUN 12, Creatinine 0.90, Estimated Creat Clear 132, Estimated GFR 88, Est GFR ( Amer) 106, Glucose 106 H, Calcium 8.2 L, Total Bilirubin 0.7, AST 41 D, ALT 33, Alkaline Phosphatase 72, Total Protein 6.1 L, Albumin 3.3 L, Globulin 2.8, Albumin/Globulin Ratio 1.2 07/20/24 09:15: APTT 56.7 I & O for Last 24 hours: Intake & Output 07/17/24 07/18/24 07/19/24 07/20/24 23:59 23:59 23:59 23:59 Intake Total 1267 / [address] [facility] [place] / 4958 638 / 638 Output Total 0 / 0 0 / 0 0 / 0 Balance 1267 / [address] [facility] [place] / 9109 638 / 638 Weight 218 lb 12.8 oz 223 lb 12.307 oz 221 lb 6.4 oz 222 lb Microbiology Reports for the Last 24 Hours: Microbiology 07/18/24 07:59 Urine,Clean Catch Urine Culture - Final No growth. 07/17/24 23:00 Nose MRSA Culture - Final Negative Constitutional Constitutional: no acute distress and average body habitus *Routine HEENT Exam Head: Present normocephalic and atraumatic ENT: Present mucous membranes moist *Routine Neck Exam Neck: Present supple, full ROM and normal carotid upstroke; Absent JVD, carotid bruit or lymphadenopathy *Routine Respiratory Exam Respiratory: Present CTA bilaterally, normal respiratory effort, able to speak in complete sentences and symmetric chest movement *Routine Cardiovascular Exam Cardiovascular: Present RRR, Normal S1 and Normal S2; Absent murmur or gallop *Routine Abdominal Exam Abdominal: Present soft and normoactive bowel sounds; Absent tenderness, distended or organomegaly *Routine Extremities Exam Extremities: Present full ROM, pulses intact and normal capillary refill; Absent cyanosis, clubbing or edema *Routine Skin Exam Skin: Present intact and warm; Absent erythema *Routine Neurological Exam Neurological: Present alert, oriented X3 and CN II-XII intact; Absent sensory deficit or motor deficit Routine Psychiatric Exam Psychiatric: Present normal affect Progress Note: A&P Assessment and plan (1) Non-STEMI (non-ST elevated myocardial infarction): Status: Acute (2) Abnormal electrocardiogram [ECG] [EKG]: Status: Acute (3) Sepsis: Status: Acute (4) Community acquired pneumonia: Status: Acute (5) HTN (hypertension): Status: Acute (6) LOYD (obstructive sleep apnea): Status: Acute (7) Tobacco dependence: Status: Acute Assessment and Plan Assessment and Plan for All Diagnoses:: Plan: 1. This is a 53-year-old gentleman who was admitted to the hospital from [facility] due to sepsis and an elevated troponin. The patient had blood cultures drawn at [facility]. Results are currently pending. CT of the chest at [facility] showed no PE or pneumonia. Chest x- ray here at [facility] does show a probable pneumonia which is likely the cause of his sepsis. He does have a cough. He is currently getting IV antibiotics. Will defer to the hospitalist. 2. The patient does have an elevated troponin consistent with non-STEMI. He does have an abnormal EKG and is a tobacco user. The patient would benefit from left cardiac catheterization during this hospitalization secondary to the non- STEMI. The patient has been afebrile for greater than 24 hours. Will plan to proceed with left cardiac catheterization today to evaluate for coronary artery disease. 3. The patient has been educated the risk and benefits of proceeding with left cardiac catheterization. The patient verbalized understanding and is agreeable in proceeding with the procedure 4. The patient will be n.p.o. in preparation for left cardiac catheterization. 5. Echocardiogram shows a normal ejection fraction and no significant valve disease. 6. His blood pressure is well-controlled. 7. His LDL goal is less than 55. His LDL is 113. He has been started on a statin. 8. Continue aspirin 81 mg daily due to the non-STEMI. 9. Continue Toprol. 10. Continue the heparin drip for his non-STEMI. 11. Further recommendations will be made pending the patient's response to treatment and the results of his left cardiac catheterization today. Thank you for the opportunity to help participate in the care of this patient. All recommendations and orders are per Dr. Barajas. Addendum: The patient underwent left cardiac catheterization today and had 1 drug-eluting stent placed. The patient tolerated the procedure well. The patient can be discharged later today as long as his vital signs remained stable once his TR band has been removed. The patient will need to follow-up in cardiology clinic next week. The patient can be discharged on the following cardiac medications: Aspirin 81 mg daily, Lipitor 80 mg p.o. nightly, Toprol 50 mg p.o. daily, Effient 10 mg p.o. daily.
[2024-07-20] MEDS: MIDAZOLAM HCL 1MG/ML 5ML VIAL 1 MG IV (11:48)
[2024-07-20] MEDS: FENTANYL 100MCG/2ML VIAL 50 MCG IV (11:48)
[2024-07-20] MEDS: LIDOCAINE 1% 10ML MDV 20 ML IJ (11:48)
[2024-07-20] MEDS: VERAPAMIL 2.5MG/ML 2ML VIAL 2.5 MG IV (11:49)
[2024-07-20] MEDS: HEPARIN 1,000 UNITS/ML 10ML VIAL (CATH LAB) 10000 UNIT IV (11:49)
[2024-07-20] MEDS: NITROGLYCERIN 800MCG/8ML SYR (CATH LAB) 800 MCG IA (11:49)
[2024-07-20] MEDS: HEPARIN 1,000 UNITS/500ML NS (CATH LAB) 3000 UNIT IV (11:50)
[2024-07-20] MEDS: PRASUGREL 10MG TAB 60 MG PO (12:50)
--- NOTE | 2024-07-20 14:09 | P.DS_ITS ---
General Admission date:: 07/17/24 HPI HPI HPI: This is a 53-year-old male that has presented to [facility] in transition of care from [facility] emergency department for sepsis presentation with elevated troponin. The patient reports no chest pain and ED has identified no acute ST-T changes on ECG. The patient is accompanied by his and 3 daughters who assist with the history. He describes a past medical history which is significant for hypertension, tobacco dependence and LOYD but no identified chronic kidney disease. His tobacco use history is significant for 1 pack/day for 30 years. He drinks 4 to 6 ounces of bourbon daily. He reports awakening at 2 AM with fever, chills, diaphoresis and near syncope with standing up. He felt like my legs were going to give out. He laid back down and went to sleep. He woke up approximately 10 AM and reported some spinning room sensation to his with ongoing chills and generalized weakness. He went back to bed and woke up later in the afternoon and his reports that he was talking out of his head and he called me Anna which is his sister. The patient identified no dysarthria, acute loss of motor or sensory function. He reported no falls. He remained lightheaded. They presented to their local ED and he was assessed with sepsis with blood cultures pending, S/P fluid resuscitation and IV antibiotic therapy. His initial troponin was 718 and trended downward to 697. He was started on IV heparin therapy and cardiology was consulted out of the ED and his care was transitioned to our facility for cardiology services. Currently the patient continues to deny retrosternal chest pain, palpitations or acute dyspnea. He reports no associated cough, hemoptysis or sputum production. He cannot identify sick contacts. He does endorse confusion early this morning. He reports no prior history of cardiac catheterization. Hospital Course Hospital Course Hospital Course: Parag Henriquez is a 53-year-old male with a medical history significant for hypertension, chronic tobacco use who presents as a transfer from [facility] admitted for sepsis secondary to community-acquired pneumonia, and NSTEMI. #Sepsis #Community acquired pneumonia - CXR suggestive of bibasilar pneumonia. WBC improved from 15 to 5.8. - Clinically improved with Rocephin, azithryomycin for 3 days. - OSH blood, urine cultures unremarkable. - Discharged with cefdinir and azithromycin for 2 more days. - Will follow-up with PCP within 1 week. #NSTEMI ? Initial troponin 1.14->1.07. EKG without acute ischemic changes. Initally started on heparin drip. ? ECHO showed normal biventricular function. No wall motion abnormalities. ? S/p PCI 07/21/24 with DESx1 to LCX. ? Aspirin 81 mg, Plavix 75mg, atorvastatin 80 mg. #Hematuria ? UA shows 3+ blood with RBCs, but without signs of infection. ? Patient does smoke, Will need to follow-up with PCP for further evaluation. #Hypertension ? Resume home regimen. #Current tobacco smoker - Provided smoking cessation counseling. Not interested in nicotine patch. #GERD - Started Protonix 40mg. Exam Data for Last 24 hours Vital signs and Labs for Last 24 Hours: Temp Pulse Resp BP Pulse Ox O2 Del Method 97.6 F 67 16 151/94 H 95 Room Air 07/20/24 13:25 07/20/24 13:25 07/20/24 13:25 07/20/24 13:25 07/20/24 13:25 07/20/24 13:53 Laboratory Results - last 24 hr 07/19/24 19:15: APTT 45.7 L 07/20/24 03:00: APTT 65.9 07/20/24 06:03: WBC 5.8, RBC 4.42 L, Hgb 13.9 L, Hct 41.3 L, MCV 93.4, MCH 31.5 H, MCHC 33.8, RDW 13.6, Plt Count 150, MPV 9.4, Neut % (Auto) 70.6, Lymph % (Auto) 19.3, [place] % (Auto) 7.6, Eos % (Auto) 2.0, Baso % (Auto) 0.4, Neut # (Auto) 4.1, Lymph # (Auto) 1.1, [place] # (Auto) 0.4, Eos # (Auto) 0.1, Baso # (Auto) 0.0, Sodium 134 L, Potassium 3.7, Chloride 111 H, Carbon Dioxide 24, Anion Gap 2.7 L, BUN 12, Creatinine 0.90, Estimated Creat Clear 132, Estimated GFR 88, Est GFR ( Amer) 106, Glucose 106 H, Calcium 8.2 L, Total Bilirubin 0.7, AST 41 D, ALT 33, Alkaline Phosphatase 72, Total Protein 6.1 L, Albumin 3.3 L, Globulin 2.8, Albumin/Globulin Ratio 1.2 07/20/24 09:15: APTT 56.7 I & O for Last 24 hours: Intake & Output 07/17/24 07/18/24 07/19/24 07/20/24 23:59 23:59 23:59 23:59 Intake Total 1267 / 1267 [facility] / 1569 638 / 638 Output Total 0 / 0 0 / 0 0 / 0 Balance 1267 / 1267 8842 / 3528 638 / 638 Weight 99.246 kg 101.5 kg 100.425 kg 100.69 kg Microbiology Reports for the Last 24 Hours: Microbiology 07/20/24 09:05 Sputum - Expectorated Sputum Gram Stain - Final 07/18/24 07:59 Urine,Clean Catch Urine Culture - Final No growth. 07/17/24 23:00 Nose MRSA Culture - Final Negative Constitutional Constitutional: no acute distress *Routine HEENT Exam Head: Present normocephalic Eye: Present EOMI and PERRL ENT: Present mucous membranes moist *Routine Neck Exam Neck: Present supple; Absent lymphadenopathy *Routine Respiratory Exam Respiratory: Present CTA bilaterally *Routine Cardiovascular Exam Cardiovascular: Present RRR *Routine Abdominal Exam Abdominal: Present soft and normoactive bowel sounds; Absent tenderness *Routine Extremities Exam Extremities: Absent cyanosis, clubbing or edema *Routine Skin Exam Skin: Present warm; Absent rash *Routine Neurological Exam Neurological: Present alert and oriented X3 Results Data Completed and Pending Labs on day of discharge: Labs from last 24 hours 07/20/24 07/20/24 07/20/24 09:15 06:03 03:00 WBC 5.8 RBC 4.42 L Hgb 13.9 L Hct 41.3 L MCV 93.4 MCH 31.5 H MCHC 33.8 RDW 13.6 Plt Count 150 MPV 9.4 Neut % (Auto) 70.6 Lymph % (Auto) 19.3 [place] % (Auto) 7.6 Eos % (Auto) 2.0 Baso % (Auto) 0.4 Neut # (Auto) 4.1 Lymph # (Auto) 1.1 [place] # (Auto) 0.4 Eos # (Auto) 0.1 Baso # (Auto) 0.0 APTT 56.7 65.9 Sodium 134 L Potassium 3.7 Chloride 111 H Carbon Dioxide 24 Anion Gap 2.7 L BUN 12 Creatinine 0.90 Estimated Creat Clear 132 Estimated GFR 88 Est GFR ( Amer) 106 Glucose 106 H Calcium 8.2 L Total Bilirubin 0.7 AST 41 D ALT 33 Alkaline Phosphatase 72 Total Protein 6.1 L Albumin 3.3 L Globulin 2.8 Albumin/Globulin Ratio 1.2 07/19/24 19:15 WBC RBC Hgb Hct MCV MCH MCHC RDW Plt Count MPV Neut % (Auto) Lymph % (Auto) [place] % (Auto) Eos % (Auto) Baso % (Auto) Neut # (Auto) Lymph # (Auto) [place] # (Auto) Eos # (Auto) Baso # (Auto) APTT 45.7 L Sodium Potassium Chloride Carbon Dioxide Anion Gap BUN Creatinine Estimated Creat Clear Estimated GFR Est GFR ( Amer) Glucose Calcium Total Bilirubin AST ALT Alkaline Phosphatase Total Protein Albumin Globulin Albumin/Globulin Ratio DS: Diagnosis Discharge Diagnosis (1) Non-STEMI (non-ST elevated myocardial infarction): Status: Acute Code(s): I21.4 - Non-ST elevation (NSTEMI) myocardial infarction (2) Abnormal electrocardiogram [ECG] [EKG]: Status: Acute Code(s): R94.31 - Abnormal electrocardiogram [ECG] [EKG] (3) Sepsis: Status: Acute Code(s): A41.9 - Sepsis, unspecified organism (4) Community acquired pneumonia: Status: Acute Code(s): J18.9 - Pneumonia, unspecified organism (5) HTN (hypertension): Status: Acute Code(s): I10 - Essential (primary) hypertension Qualifiers: Hypertension type: primary hypertension Qualified Code(s): I10 - Essential (primary) hypertension (6) LOYD (obstructive sleep apnea): Status: Acute Code(s): G47.33 - Obstructive sleep apnea (adult) (pediatric) (7) Tobacco dependence: Status: Acute Code(s): F17.200 - Nicotine dependence, unspecified, uncomplicated Meds Home Medications and Allergies Home Medications ?Medication ?Instructions ?Recorded ?Confirmed ?Type nicotine 21 mg/24 hr daily 1 patch transdermal DAILY #28 ea 07/20/24 07/27/24 Rx transdermal patch aspirin 81 mg tablet,delayed 81 mg PO DAILY #90 tabs 07/27/24 07/27/24 Rx release atorvastatin 40 mg tablet 40 mg PO HS #90 tabs 07/27/24 07/27/24 Rx metoprolol succinate 50 mg 50 mg PO DAILY #90 tabs 07/27/24 07/27/24 Rx tablet,extended release 24 hr (Toprol XL) pantoprazole 40 mg tablet,delayed 40 mg PO DAILY #90 tabs 07/27/24 07/27/24 Rx release prasugrel 10 mg tablet 10 mg PO DAILY #90 tabs 07/27/24 07/27/24 Rx Saccharomyces boulardii 250 mg 250 mg PO BID 10 days #20 caps 07/29/24 Rx capsule amoxicillin 500 mg capsule 500 mg PO BID 10 days #20 caps 07/29/24 Rx irbesartan 75 mg tablet 75 mg PO DAILY 30 days #30 tabs 07/29/24 Rx New Prescriptions to Start Prescriptions: Suraj Deras Allergies Allergy/AdvReac Type Severity Reaction Status Date / Time No Known Allergies Allergy Verified 07/27/24 10:28 Discharge Plan Disposition Patient Disposition: Home, Self-Care Condition: Fair Discharge Order Discharge Orders: Discharge Order (Routine); Ordered 07/20/24 Ordered By: Suraj Steel Follow up Plan Follow up with: Nafisa Mijares APRN [Nurse Practitioner] - 07/27/24 10:15 am Derick Peres MD [Primary Care Provider] - 07/26/24 3:15 pm Prescriptions/Medication Reconciliation: New nicotine 21 mg/24 hr patch 24 hour 1 patch transdermal DAILY Qty: 28 0RF No Action prasugrel 10 mg tablet 10 mg PO DAILY Qty: 90 3RF metoprolol succinate [Toprol XL] 50 mg tablet extended release 24 hr 50 mg PO DAILY Qty: 90 3RF pantoprazole 40 mg tablet,delayed release (DR/EC) 40 mg PO DAILY Qty: 90 3RF atorvastatin 40 mg tablet 40 mg PO HS Qty: 90 3RF aspirin 81 mg tablet,delayed release (DR/EC) 81 mg PO DAILY Qty: 90 3RF irbesartan 75 mg Tablet 75 mg PO DAILY 30 Days Qty: 30 0RF amoxicillin 500 mg capsule 500 mg PO BID 10 Days Qty: 20 0RF Saccharomyces boulardii 250 mg capsule 250 mg PO BID 10 Days Qty: 20 0RF Problem Reconciliation Problems Reviewed?: Yes Patient Discharge Instructions Stand Alone Forms: [facility] Work Release Patient Instructions: DI for Heart Attack, Heart-Healthy Diet, DI for Sepsis -- Adult Print Language: Faroese Providers Primary Care Provider: Derick Peres Admit Provider: Suraj Steel Attending Provider: Suraj Steel
[2024-07-20] MEDS: IOPAMIDOL-370 (76%);100ML BOTTLE 110 ML IV ×2 (14:24→15:05)
[2024-07-20 14:27] LABS: CATHL Activated Clotting Time 224 SEC (74-125)
--- NOTE | 2024-07-22 10:11 | SW/DCPLANNER ---
Phoned patient 2xs. Patient gave wrong number and it was [employer] number. 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
== END 2024-07-20 17:41 | disposition home or self-care (01) | DRG 853 ==
PROVIDERS: Family Medicine; Internal Medicine; Admitting Provider Student in an Organized Health Care Education/Training Program; PCP Emergency Medicine; Visit Provider Student in an Organized Health Care Education/Training Program
PROC: 027034Z Dilation of Coronary Artery, One Artery with Drug-eluting Intraluminal Device, Percutaneous Approach (ICD-10-PCS; principal; 2024-07-20 13:00)
DX: A41.9 Sepsis, unspecified organism (principal); I21.4 Non-ST elevation (NSTEMI) myocardial infarction; J18.9 Pneumonia, unspecified organism; N17.9 Acute kidney failure, unspecified; R65.20 Severe sepsis without septic shock; I10 Essential (primary) hypertension; F17.210 Nicotine dependence, cigarettes, uncomplicated; G47.33 Obstructive sleep apnea (adult) (pediatric); R94.31 Abnormal electrocardiogram [ECG] [EKG]
CPT/HCPCS: 36415; 70450; 71045; 80053; 80061; 80307; 80320; 81001; 83036; 83605; 83735; 84145; 84484; 85007; 85025; 85347; 85610; 85730; 86140; 87070; 87081; 87086; 87205; 87633; 92928; 92978; 93005; 93306; 93458; 99152; 99153; C1725; C1769; C1874; C9600; J0456; J0696; J1644; J2250; J2405; J3010; J3475; J7050; J7120; Q9967

== ENCOUNTER 2024-07-27 11:52 | Inpatient (IN) | payer BC, SELFPAY ==
[2024-07-27] VITALS (18 sets, daily range): BP systolic 94–151; BP diastolic 57–89; PULSE 70–105; RESP 14–23; TEMP 36.7–37.7; O2SAT 91–97; BMI 17.3; BMI 31.5; BMI 31.6
--- NOTE | 2024-07-27 12:04 | ED_ITS ---
<Statement entered by Latasha Arteaga DO - 07/27/24 15:12> I was consulted by the PAGE, and we discussed the complexity of the problems being addressed. I approved the treatment and management plan for this patient's care in the emergency department, thus performing a substantive portion of the medical decision making. Latasha Arteaga DO Discharge Plan Disposition Patient Disposition: Admitted Condition: Serious Prescriptions Prescriptions: No Action prasugrel 10 mg tablet 10 mg PO DAILY Qty: 90 3RF metoprolol succinate [Toprol XL] 50 mg tablet extended release 24 hr 50 mg PO DAILY Qty: 90 3RF pantoprazole 40 mg tablet,delayed release (DR/EC) 40 mg PO DAILY Qty: 90 3RF atorvastatin 40 mg tablet 40 mg PO HS Qty: 90 3RF aspirin 81 mg tablet,delayed release (DR/EC) 81 mg PO DAILY Qty: 90 3RF losartan-hydrochlorothiazide 50-12.5 mg tablet 1 tab PO DAILY nicotine 21 mg/24 hr patch 24 hour 1 patch transdermal DAILY Qty: 28 0RF Referrals Follow up/Referrals: Derick Peres MD [Primary Care Provider] - See instructions Clinical Impressions Clinical Impression: Severe sepsis without septic shock, Acute nontraumatic kidney injury Print Language Print Language: Serbian Discharge ED Provider: Latasha Arteaga General Adult HPI <CHARLEEN Gillespie - Last Filed: 07/27/24 15:01> General Chief complaint: Arrhythmia/Palpitations Stated complaint: vomiting, lathargic, dizzy, weak, low bp, high HR Time Seen by Provider: 07/27/24 12:03 History of Present Illness HPI narrative: Patient presents for evaluation of nausea vomiting diarrhea. Patient states that he got a heart cath last week for an NSTEMI that was secondary to sepsis without septic shock from community-acquired pneumonia. Patient also reported lethargy and confusion at the time of initial presentation to [facility] unfortunately I do not have records from the outside facility prior to his transfer to review. He was sent from the ER [facility] and direct admitted on 07/17/2024 and ultimately discharged from our facility on 07/20/2024. He underwent a heart cath and had a GERONIMO to circumflex/OM 2. Patient reports that he has not had diarrhea or prior to being transferred here and has persisted throughout his stay and upon discharge. Patient started last night that he started feeling weak lethargic high heart rate low blood pressure. Patient was seen in the cardiology clinic today where he was noted to be tachycardic with low blood pressure and was sent to the ER for evaluation. Patient currently denies cardiac chest pain abdominal pain fever chills hemoptysis hematochezia melena hematemesis hematuria. Related Data Home Medications ?Medication ?Instructions ?Recorded ?Confirmed losartan 50 mg-hydrochlorothiazide 1 tab PO DAILY 07/17/24 07/27/24 12.5 mg tablet Previous Rx's ?Medication ?Instructions ?Recorded nicotine 21 mg/24 hr daily 1 patch transdermal DAILY #28 ea 07/20/24 transdermal patch aspirin 81 mg tablet,delayed 81 mg PO DAILY #90 tabs 07/27/24 release atorvastatin 40 mg tablet 40 mg PO HS #90 tabs 07/27/24 metoprolol succinate 50 mg 50 mg PO DAILY #90 tabs 07/27/24 tablet,extended release 24 hr (Toprol XL) pantoprazole 40 mg tablet,delayed 40 mg PO DAILY #90 tabs 07/27/24 release prasugrel 10 mg tablet 10 mg PO DAILY #90 tabs 07/27/24 Allergies Allergy/AdvReac Type Severity Reaction Status Date / Time No Known Allergies Allergy Verified 07/27/24 10:28 [facility] <CHARLEEN Gillespie - Last Filed: 07/27/24 15:01> [facility] Disclaimer: The information contained in this section may have been updated after the patient was seen, as this information can be updated by other users. Medical History (Updated 07/27/24 @ 13:33 by CHARLEEN Gillespie) Chills HLD (hyperlipidemia) Coronary artery disease Abnormal electrocardiogram [ECG] [EKG] Non-STEMI (non-ST elevated myocardial infarction) LOYD (obstructive sleep apnea) Tobacco dependence BMI 35.0-35.9,adult HTN (hypertension) Surgical History (Updated 07/27/24 @ 10:38 by Lee Ann Fong RN) Stented coronary artery S/P lumbar laminectomy Superior glenoid labrum lesion of right shoulder Family History Other Adopted Social History Smoking Status: Current every day smoker tobacco type: cigarettes packs per day: 1 years smoked: 30 alcohol intake: current alcohol intake frequency: 3 or more drinks per day current occupational status: employed Travel in the last 8 weeks: None Have you lived/traveled outside [place] in past 30 days?: No Contact w/someone who lives/traveled outside US past 30 days?: No Exposure to someone with infectious disease in past 14 days?: No Do you have a fever (greater than 100.4 F or 38 C)?: No Have you tested positive for COVID-19: No Exposed to someone with COVID-19 in past 14 days?: No Do you have a sore throat?: Yes Do you have a cough?: Yes Do you have any weakness?: Yes Do you have any diarrhea?: No Are you experiencing any unusual bleeding?: No Do you have any muscle aches/pain?: No Do you have any abdominal pain?: No Are you experiencing loss of taste or smell?: No Other Medical History Have you received the Flu Vaccine for this season: No Have you received the Pneumonia Vaccine: No <CHARLEEN Gillespie - Last Filed: 07/27/24 15:01> ROS Obtained: Yes Systems reviewed as appropriate & no additional complaints except as documented Physical Exam <CHARLEEN Gillespie - Last Filed: 07/27/24 15:01> General General appearance: alert and in no apparent distress Respiratory Respiratory exam: Present normal lung sounds bilaterally Cardiovascular Cardiovascular exam: Present regular rate Neurological Exam Neurological exam: Present alert and oriented X3 Medical Decision Making <CHARLEEN Gillespie - Last Filed: 07/27/24 15:01> Medical Records Medical records reviewed: Yes I reviewed the patient's medical records. Screening: Per USPSTF and CDC recommendations, given the prevalence of disease in our region, it is our hospital?s policy to screen for HIV and viral Hepatitis for all patients aged 18 and over and those with ongoing risk factors. Vinicius Inquiry Pt receiving controlled substance: No Vital Signs: 07/27/24 11:53 07/27/24 12:04 07/27/24 13:00 Temperature 99.8 F H Temperature Source Oral Pulse Rate 101 H 91 H Pulse Rate [Left Radial] 105 H Respiratory Rate 16 23 Blood Pressure 121/70 94/63 L Blood Pressure [Right Arm] 151/79 H Blood Pressure Mean Blood Pressure Mean [Right Arm] 103 02 Sat by Pulse Oximetry 96 96 95 Oxygen Delivery Method Room Air 07/27/24 13:25 07/27/24 14:00 Temperature Temperature Source Pulse Rate 91 H 83 Pulse Rate [Left Radial] Respiratory Rate 23 19 Blood Pressure 109/89 L 100/57 L Blood Pressure [Right Arm] Blood Pressure Mean 66 Blood Pressure Mean [Right Arm] 02 Sat by Pulse Oximetry 95 94 L Oxygen Delivery Method Room Air Lab Data Lab Results 07/27/24 12:06: WBC 26.9 H*, RBC 4.70, Hgb 14.4, Hct 42.5, MCV 90.4, MCH 30.6, MCHC 33.9, RDW 12.4, Plt Count 312, MPV 9.6, Neut % (Auto) 90.2 H, Lymph % (Auto) 3.8 L, [place] % (Auto) 4.9, Eos % (Auto) 0.0 L, Baso % (Auto) 0.4, Neut # (Auto) 24.3 H, Lymph # (Auto) 1.0, [place] # (Auto) 1.3 H, Eos # (Auto) 0.0, Baso # (Auto) 0.1, Total Counted 100, Neutrophils % (Manual) 82 H, Lymphocytes % (Manual) 14, Atypical Lymphs % 1.0, Monocytes % (Manual) 3, Platelet Estimate Normal, RBC Morphology Normal, VBG pH 7.42 H, VBG pCO2 42.9, VBG pO2 28.1, VBG HCO3 27.1, VBG Total CO2 28.4 H, VBG O2 Saturation 55.9, VBG Base Excess 2.6 H, VBG Lactic Acid 2.2 H, Sodium 134 L, Potassium 4.3, Chloride 101, Carbon Dioxide 27, Anion Gap 10.3, BUN 24 H, Creatinine 2.30 H, Estimated Creat Clear 28, E stimated GFR 30 L, Est GFR ( Amer) 36 L, Glucose 128 H, Calcium 9.0, T otal Bilirubin 1.4 H, AST 31, ALT 47, Alkaline Phosphatase 73, Total Protein 7.8 D, Albumin 4.1, Globulin 3.7 H, Albumin/Globulin Ratio 1.1, Lipase 92 07/27/24 12:09: Procalcitonin 0.786 07/27/24 12:16: Chlamy pneumoniae PCR Not detected, Adenovirus (PCR) Not detected, B. pertussis DNA (PCR) Not detected, Coronavirus OC43 (PCR) Not detected, Coronavirus HKU1 (PCR) Not detected, Coronavirus 229E (PCR) Not detected, SARS-CoV-2 (PCR) Not detected, Coronavirus NL63 (PCR) Not detected, Human Metapneumovir PCR Not detected, Influenza A (H1) PCR Not detected, Influ A (H1N1/09) PCR Not detected, Influenza A (H3) PCR Not detected, Influenza Type A (PCR) Not detected, Influenza Type B (PCR) Not detected, M. pneumoniae (PCR) Not detected, Parainfluenza 1 (PCR) Not detected, Parainfluenza 2 (PCR) Not detected, Parainfluenza 3 (PCR) Not detected, Parainfluenza 4 (PCR) Not detected, RSV (PCR) Not detected, Entero/Rhino (PCR) Not detected 07/27/24 12:06 07/27/24 12:06 Orders (Tests/Meds): ED MEDICATIONS Generic Name Dose Route Start Last Admin Trade Name Freq PRN Reason Stop Dose Admin Sodium Chloride 2,190 mls @ 1,095 mls/hr 07/27/24 13:29 07/27/24 13:36 Sod Chlor 0.9% 1000ml Bag 30 ml/kg infuse over 2 hr (2190 ml) 07/27/24 15:28 1,095 mls/hr IV Administration .Q2H ONE Vancomycin HCl 1,500 mg/ 250 mls @ 125 mls/hr 07/27/24 13:45 Sodium Chloride IV 07/27/24 15:44 ONCE ONE Miscellaneous 1 each 07/27/24 13:30 07/27/24 14:44 Vancomycin Consult Request NOTAPPLIC 08/26/24 13:29 1 each CONSULT PHARMACY GEOVANNA Administration Discontinued Medications Generic Name Dose Route Start Last Admin Trade Name Freq PRN Reason Stop Dose Admin Acetaminophen 1,000 mg 07/27/24 12:04 07/27/24 12:10 Acetaminophen 1,000mg/100ml Vial IV 07/27/24 12:05 1,000 mg ONCE ONE Administration Hydrocortisone Sodium Succinate 100 mg 07/27/24 14:28 Hydrocortisone Sod Succinate 100mg Vial IV 07/27/24 14:29 ONCE ONE Piperacillin Sod/Tazobactam 50 mls @ 100 mls/hr 07/27/24 13:32 07/27/24 14:16 Sod 3.375 gm/ Sodium Chloride IV 07/27/24 14:01 100 mls/hr ONCE ONE Administration Ondansetron HCl 4 mg 07/27/24 12:04 07/27/24 12:10 Ondansetron 4mg/2ml Vial IV 07/27/24 12:05 4 mg ONCE ONE Administration ORDERS Category Date Time Status CT abdomen pelvis wo con Stat Cat Scan 07/27/24 12:[address] chest wo con Stat Cat Scan 07/27/24 12:25 Completed CBC w/Auto Diff [Complete Blood Count Auto Diff] Stat Lab 07/27/24 12:06 Completed CMP [Comprehensive Metabolic Panel] Stat Lab 07/27/24 12:06 Completed Complete Blood Count Auto Diff AMLAB Lab 07/28/24 06:00 Ordered Comprehensive Metabolic Panel AMLAB Lab 07/28/24 06:00 Ordered Diarrhea 23 Panel, PCR Stat Lab 07/27/24 12:09 Ordered Full Resp Panel w/COVID ([facility]) Routine Lab 07/27/24 12:16 Completed Lipase Stat Lab 07/27/24 12:06 Completed Magnesium AMLAB Lab 07/28/24 06:00 Ordered Procalcitonin Stat Lab 07/27/24 12:09 Completed UA [Urinalysis and Microscopic] Stat Lab 07/27/24 12:05 Ordered Blood Culture Stat Micro 07/27/24 13:06 Received VBG [Venous Blood Gas] Stat RT 07/27/24 12:06 Completed Tissue Perfus/Sepsis Re-Eval Sepsis Re-Evaluation Performed: Yes Date Performed: 07/27/24 Time Performed: 13:07 Medical Decision Narrative: In summary patient is a 53-year-old male who presents to the emergency department for evaluation of nausea vomiting persistent diarrhea lethargy. Patient is initially with a blood pressure 151/79 tachycardic at 105 breathing 16 times a minute temperature of 99.8 satting at 96% on room air upon arrival. Physical exam is remarkable for an unwell appearing but well-nourished well- developed 53-year-old male who does not appear to be in acute distress. [place] Coma Score is 15 patient is awake alert and oriented person place and circumstance. Breath sounds bowel sounds are normal with no abdominal tenderness on palpation.. Differential diagnosis includes sepsis versus infectious or noninfectious diarrhea versus acute kidney injury versus electrolyte disturbance etc. Initial workup will be conducted with hematologic labs CT scan of the chest abdomen pelvis without contrast diarrhea panel full respiratory panel.. Initial interventions include crystalloid bolus Tylenol Zofran. Initial workup reviewed by me shows patient has a white count of 26.9 with an absolute neutrophil count of 24.3 VBG shows a pH 7.42 with a venous blood gas lactate of 2.2 BUN is 24 creatinine is 2.3 with a GFR of 30, procalcitonin is 0.786, informal interpretation of CT scan chest abdomen pelvis without contrast shows no evidence of any acute problems including pneumonia or dilated bowel however it is a noncontrasted study. Upon repeat evaluation patient's blood pressures remain soft with pressure at the time my exam 100 systolic but his heart rate has come down to 83. Given this did give the patient a dose of Solu-Cortef in case of adrenal insufficiency and we still await stool and urine samples for complete testing. I had interactive discussion with hospital medicine regarding patient management and he will be admitted for further evaluation and care. <Latasha Arteaga, DO - Last Filed: 07/27/24 13:54> Vital Signs: 07/27/24 11:53 07/27/24 12:04 07/27/24 13:00 Temperature 99.8 F H Temperature Source Oral Pulse Rate 101 H 91 H Pulse Rate [Left Radial] 105 H Respiratory Rate 16 23 Blood Pressure 121/70 94/63 L Blood Pressure [Right Arm] 151/79 H Blood Pressure Mean Blood Pressure Mean [Right Arm] 103 02 Sat by Pulse Oximetry 96 96 95 Oxygen Delivery Method Room Air 07/27/24 13:25 07/27/24 14:00 Temperature Temperature Source Pulse Rate 91 H 83 Pulse Rate [Left Radial] Respiratory Rate 23 19 Blood Pressure 109/89 L 100/57 L Blood Pressure [Right Arm] Blood Pressure Mean 66 Blood Pressure Mean [Right Arm] 02 Sat by Pulse Oximetry 95 94 L Oxygen Delivery Method Room Air Lab Data Lab Results 07/27/24 12:06: WBC 26.9 H*, RBC 4.70, Hgb 14.4, Hct 42.5, MCV 90.4, MCH 30.6, MCHC 33.9, RDW 12.4, Plt Count 312, MPV 9.6, Neut % (Auto) 90.2 H, Lymph % (Auto) 3.8 L, [place] % (Auto) 4.9, Eos % (Auto) 0.0 L, Baso % (Auto) 0.4, Neut # (Auto) 24.3 H, Lymph # (Auto) 1.0, [place] # (Auto) 1.3 H, Eos # (Auto) 0.0, Baso # (Auto) 0.1, Total Counted 100, Neutrophils % (Manual) 82 H, Lymphocytes % (Manual) 14, Atypical Lymphs % 1.0, Monocytes % (Manual) 3, Platelet Estimate Normal, RBC Morphology Normal, VBG pH 7.42 H, VBG pCO2 42.9, VBG pO2 28.1, VBG HCO3 27.1, VBG Total CO2 28.4 H, VBG O2 Saturation 55.9, VBG Base Excess 2.6 H, VBG Lactic Acid 2.2 H, Sodium 134 L, Potassium 4.3, Chloride 101, Carbon Dioxide 27, Anion Gap 10.3, BUN 24 H, Creatinine 2.30 H, Estimated Creat Clear 28, E stimated GFR 30 L, Est GFR ( Amer) 36 L, Glucose 128 H, Calcium 9.0, T otal Bilirubin 1.4 H, AST 31, ALT 47, Alkaline Phosphatase 73, Total Protein 7.8 D, Albumin 4.1, Globulin 3.7 H, Albumin/Globulin Ratio 1.1, Lipase 92 07/27/24 12:09: Procalcitonin 0.786 07/27/24 12:16: Chlamy pneumoniae PCR Not detected, Adenovirus (PCR) Not detected, B. pertussis DNA (PCR) Not detected, Coronavirus OC43 (PCR) Not detected, Coronavirus HKU1 (PCR) Not detected, Coronavirus 229E (PCR) Not detected, SARS-CoV-2 (PCR) Not detected, Coronavirus NL63 (PCR) Not detected, Human Metapneumovir PCR Not detected, Influenza A (H1) PCR Not detected, Influ A (H1N1/09) PCR Not detected, Influenza A (H3) PCR Not detected, Influenza Type A (PCR) Not detected, Influenza Type B (PCR) Not detected, M. pneumoniae (PCR) Not detected, Parainfluenza 1 (PCR) Not detected, Parainfluenza 2 (PCR) Not detected, Parainfluenza 3 (PCR) Not detected, Parainfluenza 4 (PCR) Not detected, RSV (PCR) Not detected, Entero/Rhino (PCR) Not detected Orders (Tests/Meds): ED MEDICATIONS Generic Name Dose Route Start Last Admin Trade Name Freq PRN Reason Stop Dose Admin Sodium Chloride 2,190 mls @ 1,095 mls/hr 07/27/24 13:29 07/27/24 13:36 Sod Chlor 0.9% 1000ml Bag 30 ml/kg infuse over 2 hr (2190 ml) 07/27/24 15:28 1,095 mls/hr IV Administration .Q2H ONE Vancomycin HCl 1,500 mg/ 250 mls @ 125 mls/hr 07/27/24 13:45 Sodium Chloride IV 07/27/24 15:44 ONCE ONE Miscellaneous 1 each 07/27/24 13:30 07/27/24 14:44 Vancomycin Consult Request NOTAPPLIC 08/26/24 13:29 1 each CONSULT PHARMACY [facility] Administration Discontinued Medications Generic Name Dose Route Start Last Admin Trade Name Freq PRN Reason Stop Dose Admin Acetaminophen 1,000 mg 07/27/24 12:04 07/27/24 12:10 Acetaminophen 1,000mg/100ml Vial IV 07/27/24 12:05 1,000 mg ONCE ONE Administration Hydrocortisone Sodium Succinate 100 mg 07/27/24 14:28 Hydrocortisone Sod Succinate 100mg Vial IV 07/27/24 14:29 ONCE ONE Piperacillin Sod/Tazobactam 50 mls @ 100 mls/hr 07/27/24 13:32 07/27/24 14:16 Sod 3.375 gm/ Sodium Chloride IV 07/27/24 14:01 100 mls/hr ONCE ONE Administration Ondansetron HCl 4 mg 07/27/24 12:04 07/27/24 12:10 Ondansetron 4mg/2ml Vial IV 07/27/24 12:05 4 mg ONCE ONE Administration ORDERS Category Date Time Status CT abdomen pelvis wo con Stat Cat Scan 07/27/24 12:[address] chest wo con Stat Cat Scan 07/27/24 12:25 Completed CBC w/Auto Diff [Complete Blood Count Auto Diff] Stat Lab 07/27/24 12:06 Completed CMP [Comprehensive Metabolic Panel] Stat Lab 07/27/24 12:06 Completed Complete Blood Count Auto Diff AMLAB Lab 07/28/24 06:00 Ordered Comprehensive Metabolic Panel AMLAB Lab 07/28/24 06:00 Ordered Diarrhea 23 Panel, PCR Stat Lab 07/27/24 12:09 Ordered Full Resp Panel w/COVID ([facility]) Routine Lab 07/27/24 12:16 Completed Lipase Stat Lab 07/27/24 12:06 Completed Magnesium AMLAB Lab 07/28/24 06:00 Ordered Procalcitonin Stat Lab 07/27/24 12:09 Completed UA [Urinalysis and Microscopic] Stat Lab 07/27/24 12:05 Ordered Blood Culture Stat Micro 07/27/24 13:06 Received VBG [Venous Blood Gas] Stat RT 07/27/24 12:06 Completed ECG Data Tracing #1: I reviewed this ECG and interpreted as documented below: Sinus tachycardia with a ventricular rate of 104 bpm. Normal axis and intervals. No acute ST changes concerning for ischemia. ECG initial impression date: 07/27/24 ECG initial impression time: 12:03 Critical Care <CHARLEEN Gillespie - Last Filed: 07/27/24 15:01> Critical Care Time Critical Care Time: Yes Attestation: On 07/27/24, the high probability of a clinically significant, sudden or life threatening deterioration of the following system(cardiopulmonary) required my full and direct attention, intervention and personal management. The time I documented below is in addition to time spent performing reported procedures but includes the following listed in this critical care notation. Total Time Total Critical Care Time: 30
[2024-07-27] MEDS: ONDANSETRON 4MG/2ML VIAL 4 MG IV (12:10)
[2024-07-27] MEDS: ACETAMINOPHEN 1,000MG/100ML VIAL 1000 MG IV (12:10)
--- NOTE | 2024-07-27 12:10 | ECG_ITS ---
APPROVED REPORT Exam: Resting ECG HR:104 bpm ECG Measurements Heart Rate 104 AXES CA 120 P 33 QRSd 100 QRS 65 QT 333 T 58 QTc 393 Conclusion SINUS TACHYCARDIA INDETERMINATE AXIS Electronically signed by : ABBI NOEL, 07/27/2024 14:31:44
[2024-07-27 12:14] LABS: VBG Base Excess 2.6 mmol/L (-2.4-2.3); VBG HCO3 27.1 mmol/L (23-30); VBG Oxygen Saturation 55.9 % (50-70); VBG PCO2 42.9 mmol/L (35-51); VBG PH 7.42 mmol/L (7.31-7.41); VBG PO2 28.1 mmol/L (28-40); VBG Total CO2 28.4 mmol/L (23-27)
[2024-07-27 12:16] LABS: Lactate Venous 2.2 mmol/L (0.4-2.0)
[2024-07-27 12:18] LABS: Albumin Level 4.1 g/dl (3.5-5.0); Chloride 101 mmol/L (98-107); Potassium 4.3 mmoL/L (3.5-5.1); Sodium 134 mmol/L (136-145)
[2024-07-27 12:21] LABS: Alanine Aminotransferase 47 U/L (12-78); Albumin/Globulin Ratio 1.1 (1.1-1.8); Alkaline Phosphatase 73 U/L (38-126); Anion Gap 10.3 mEq/L (5-15); Aspartate Amino Transferase 31 U/L (17-59); Bilirubin,Total 1.4 mg/dl (0.2-1.3); Blood Urea Nitrogen 24 mg/dl (9-20); Carbon Dioxide 27 mmol/L (22.0-30.0); Creatinine Clearance Estimated 28 mL/min (50-200); Estimated Glomerular Filt Rate 30 ml/min (>60); GFR (African American) 36 ML/MIN (>60); Globulin 3.7 g/dL (1.3-3.2); Total Protein,Serum 7.8 g/dl (6.3-8.2)
[2024-07-27 12:22] LABS: Glucose 128 mg/dl (74-100)
[2024-07-27 12:22] LABS: Adenovirus,PCR Not Detected (NotDetected); Bordetella Pertussis Not Detected (NotDetected); Chlamydophila Pneumoniae, PCR Not Detected (NotDetected); Coronavirus 19, PCR Not Detected (NotDetected); Coronavirus 229E Not Detected (NotDetected); Coronavirus NL63 Not Detected (NotDetected); Coronavirus OC43 Not Detected (NotDetected); Coronovirus HKU1,PCR Not Detected (NotDetected); Human Metapneumovirus Not Detected (NotDetected); Influenza A, PCR Not Detected (NotDetected); Influenza AH1, 2009 Not Detected (NotDetected); Influenza AH1, PCR Not Detected (NotDetected); Influenza AH3,PCR Not Detected (NotDetected); Influenza B, PCR Not Detected (NotDetected); Mycoplasma Pneumoniae, PCR Not Detected (NotDetected); Parainfluenza 1, PCR Not Detected (NotDetected); Parainfluenza 2, PCR Not Detected (NotDetected); Parainfluenza 3, PCR Not Detected (NotDetected); Parainfluenza 4, PCR Not Detected (NotDetected); Respiratory Syncytial Virus Not Detected (NotDetected); Rhinovirus/Enterovirus Not Detected (NotDetected)
--- NOTE | 2024-07-27 12:25 | CT_ITS ---
FINAL REPORT TECHNIQUE: Axial CT without IV contrast administration. Coronal and sagittal reconstructions were obtained and reviewed. This study was performed with techniques to keep radiation doses as low as reasonably achievable, (ALARA). Individualized dose reduction techniques using automated exposure control or adjustment of mA and/or kV according to the patient''s size were employed. CLINICAL HISTORY: Nausea vomiting diarrhea COMPARISON: CT abdomen and pelvis 07/17/2024 FINDINGS: There is left lower lobe scarring. No acute pulmonary density is seen. No pleural or pericardial effusion is seen. No adenopathy or mass lesion is present. IMPRESSION: No acute lung disease. Reviewed, Interpreted and Dictated by Carlita Danielle MD Transcribed by Bianca Guadalupe Authenticated and [facility]
--- NOTE | 2024-07-27 12:25 | CT_ITS ---
FINAL REPORT TECHNIQUE: Noncontrast exam This study was performed with techniques to keep radiation doses as low as reasonably achievable, (ALARA). Individualized dose reduction techniques using automated exposure control or adjustment of mA and/or kV according to the patient''s size were employed. CLINICAL HISTORY: Nausea vomiting diarrhea FINDINGS: Abdomen: Lung bases are clear. Liver, spleen, and pancreas have a normal CT appearance in their limited unenhanced state. There are bilateral adrenal nodules, larger on the left. Left adrenal nodule measures 25 mm, probably an adenoma but slightly denser than typical adenoma. The gallbladder is present. The kidneys show no stone disease or obstruction. No obvious renal mass is present. No ureteral stones are present. Pelvis: The appendix is unremarkable. No distal ureteral stones are seen. Bladder and prostate are unremarkable. No fluid collection or adenopathy is seen. IMPRESSION: No acute disease. Bilateral adrenal nodules, probably adenomas but recommend continued follow-up. Reviewed, Interpreted and Dictated by Carlita Danielle MD Transcribed by Anna Ortiz Authenticated and [facility]
[2024-07-27 12:53] LABS: Hematocrit 42.5 % (42.0-52.0); Hemoglobin 14.4 g/dL (14.1-18.0); Mean Corpuscular HGB Conc 33.9 g/dL (31.8-35.4); Mean Corpuscular Hemoglobin 30.6 pg (27.0-31.2); Mean Corpuscular Volume 90.4 fl (80-94); Platelet Count 312 K/mm3 (142-424); Red Cell Distribution Width 12.4 % (11.5-17.5); White Blood Count 26.9 K/mm3 (4.8-10.8)
[2024-07-27 12:54] LABS: Basophils # 0.1 K/mm3 (0-0.2); Basophils % 0.4 % (0.1-2.0); Lymphocytes % 3.8 % (10-50); Mean Platelet Volume 9.6 fl (7.4-10.4); Monocytes # 1.3 K/mm3 (0.1-1.0); Monocytes % 4.9 % (1.7-9.3); Neutrophils # 24.3 K/mm3 (1.8-7.8); Neutrophils % 90.2 % (37.0-80.0)
[2024-07-27 12:55] LABS: MANUAL DIFFERENTIAL MANUAL DIFFERENTIAL (MANUAL DIFF)
[2024-07-27 13:02] LABS: Lipase 92 U/L (23-300)
[2024-07-27 13:06] LABS: Procalcitonin 0.786 ng/mL (0.0-2.0)
[2024-07-27] MEDS: 0.9 % SODIUM CHLORIDE 1000ML 2,190 ML 1095 ML IV (13:36)
--- NOTE | 2024-07-27 13:51 | [facility].PHAINT1 ---
Pharmacy Intervention Comments: MEDICATION RECONCILIATION COMPLETED ON PATIENT USING EXTERNAL FILL HISTORY FROM PHARMACY AND DISCHARGE SUMMARY FROM PREVIOUS ADMISSION. -ADAM HAWKINS, HOD
[2024-07-27 13:59] LABS: Lymphocytes % 14 % (10-50); Monocytes % 3 % (2-9); Neutrophils % 82 % (42-76); Platelet Estimate Normal; RBC Morphology Normal; Total Cells Counted 100
[2024-07-27] MEDS: PIPERACILLIN/TAZO 3.375 GM in 0.9 % SODIUM CHLORIDE 50 ML IV (14:16)
--- NOTE | 2024-07-27 14:39 | PC.NURSE ---
ANNA MILLS SPEAKING WITH DR NARANJO
[2024-07-27] MEDS: VANCOMYCIN CONSULT REQUEST 1 EACH NOTAPPLIC (14:44)
--- NOTE | 2024-07-27 14:46 | PC.NURSE ---
warehouse attendant called for bed placement
--- NOTE | 2024-07-27 14:49 | P.HP_ITS ---
History of Present Illness *Admission Date: 07/27/24 *Reason for visit:: Weakness, vomiting *History of present illness: Mr. Henriquez is a 53-year-old male who was recently admitted as a transfer from [facility] on 07 17. Discharged on 1210. Underwent heart cath with drug-eluting stent to the circumflex/OM. At that time also was treated for pneumonia. States that he has had persistent diarrhea since getting home. It has been worse than his normal which has been present for over a year. Denies any chest pain or shortness of breath. Does state that he had nausea and vomiting over the past 24 hours. [place] very weak today, came to the ER for evaluation. On arrival, found to be hypotensive. White count elevated at 27K. Concern for sepsis. Initiated on antibiotics and administered sepsis bolus. Medicine consulted for further management. On arrival to the floor, patient denies cardiac chest pain abdominal pain, fever, chills, melena or blood in stool. Denies any dysuria or flank pain. Family at bedside helps supplement history. Patient alert and oriented x 4. Stable on room air. On further questioning, patient states he has been having loose stools for many years. Was actually scheduled to see GI in [place] this coming Thursday for EGD and colonoscopy. [facility] Disclaimer: The information contained in this section may have been updated after the patient was seen, as this information can be updated by other users. Medical History Chills HLD (hyperlipidemia) Coronary artery disease Abnormal electrocardiogram [ECG] [EKG] Non-STEMI (non-ST elevated myocardial infarction) LOYD (obstructive sleep apnea) Tobacco dependence BMI 35.0-35.9,adult HTN (hypertension) Surgical History Stented coronary artery S/P lumbar laminectomy Superior glenoid labrum lesion of right shoulder Family History Other Adopted Social History Smoking Status: Current every day smoker tobacco type: cigarettes packs per day: 1 years smoked: 30 alcohol intake: current alcohol intake frequency: 3 or more drinks per day current occupational status: employed Travel in the last 8 weeks: None Have you lived/traveled outside US in past 30 days?: No Contact w/someone who lives/traveled outside US past 30 days?: No Exposure to someone with infectious disease in past 14 days?: No Do you have a fever (greater than 100.4 F or 38 C)?: No Have you tested positive for COVID-19: No Exposed to someone with COVID-19 in past 14 days?: No Do you have a sore throat?: Yes Do you have a cough?: Yes Do you have any weakness?: Yes Do you have any diarrhea?: No Are you experiencing any unusual bleeding?: No Do you have any muscle aches/pain?: No Do you have any abdominal pain?: No Are you experiencing loss of taste or smell?: No Other Medical History Have you received the Flu Vaccine for this season: No Have you received the Pneumonia Vaccine: No Review of Systems Review of Systems Review of systems (narrative): 14 point review of systems performed, pertinent positives and negatives as per HPI Meds Home Medications and Allergies Home Medications ?Medication ?Instructions ?Recorded ?Confirmed ?Type losartan 50 mg-hydrochlorothiazide 1 tab PO DAILY 07/17/24 07/27/24 History 12.5 mg tablet nicotine 21 mg/24 hr daily 1 patch transdermal DAILY #28 ea 07/20/24 07/27/24 Rx transdermal patch aspirin 81 mg tablet,delayed 81 mg PO DAILY #90 tabs 07/27/24 07/27/24 Rx release atorvastatin 40 mg tablet 40 mg PO HS #90 tabs 07/27/24 07/27/24 Rx metoprolol succinate 50 mg 50 mg PO DAILY #90 tabs 07/27/24 07/27/24 Rx tablet,extended release 24 hr (Toprol XL) pantoprazole 40 mg tablet,delayed 40 mg PO DAILY #90 tabs 07/27/24 07/27/24 Rx release prasugrel 10 mg tablet 10 mg PO DAILY #90 tabs 07/27/24 07/27/24 Rx New Prescriptions to Start Prescriptions: Allergies Allergy/AdvReac Type Severity Reaction Status Date / Time No Known Allergies Allergy Verified 07/27/24 10:28 Exam Data for Last 24 hours Vital signs and Labs for Last 24 Hours: Temp Pulse Resp BP Pulse Ox O2 Del Method 99.8 F H 83 19 100/57 L 94 L Room Air 07/27/24 11:53 07/27/24 14:00 07/27/24 14:00 07/27/24 14:00 07/27/24 14:00 07/27/24 13:25 Laboratory Results - last 24 hr 07/27/24 12:06: WBC 26.9 H*, RBC 4.70, Hgb 14.4, Hct 42.5, MCV 90.4, MCH 30.6, MCHC 33.9, RDW 12.4, Plt Count 312, MPV 9.6, Neut % (Auto) 90.2 H, Lymph % (Auto) 3.8 L, [place] % (Auto) 4.9, Eos % (Auto) 0.0 L, Baso % (Auto) 0.4, Neut # (Auto) 24.3 H, Lymph # (Auto) 1.0, [place] # (Auto) 1.3 H, Eos # (Auto) 0.0, Baso # (Auto) 0.1, Total Counted 100, Neutrophils % (Manual) 82 H, Lymphocytes % (Manual) 14, Atypical Lymphs % 1.0, Monocytes % (Manual) 3, Platelet Estimate No rmal, RBC Morphology Normal, VBG pH 7.42 H, VBG pCO2 42.9, VBG pO2 28.1, VBG HCO3 27.1, VBG Total CO2 28.4 H, VBG O2 Saturation 55.9, VBG Base Excess 2.6 H, VBG Lactic Acid 2.2 H, Sodium 134 L, Potassium 4.3, Chloride 101, Carbon Dioxide 27, Anion Gap 10.3, BUN 24 H, Creatinine 2.30 H, Estimated Creat Clear 28, Estimated GFR 30 L, Est GFR ( Amer) 36 L, Glucose 128 H, Calcium 9.0, Total Bilirubin 1.4 H, AST 31, ALT 47, Alkaline Phosphatase 73, Total Protein 7.8 D, Albumin 4.1, Globulin 3.7 H, Albumin/Globulin Ratio 1.1, Lipase 92 07/27/24 12:09: Procalcitonin 0.786 07/27/24 12:16: Chlamy pneumoniae PCR Not detected, Adenovirus (PCR) Not det ected, B. pertussis DNA (PCR) Not detected, Coronavirus OC43 (PCR) Not detected, Coronavirus HKU1 (PCR) Not detected, Coronavirus 229E (PCR) Not detected, SARS-CoV-2 (PCR) Not detected, Coronavirus NL63 (PCR) Not detected, Human Metapneumovir PCR Not detected, Influenza A (H1) PCR Not detected, Influ A (H1N1/09) PCR Not detected, Influenza A (H3) PCR Not detected, Influenza Type A (PCR) Not detected, Influenza Type B (PCR) Not detected, M. pneumoniae (PCR) Not detected, Parainfluenza 1 (PCR) Not detected, Parainfluenza 2 (PCR) Not detected, Parainfluenza 3 (PCR) Not detected, Parainfluenza 4 (PCR) Not detected, RSV (PCR) Not detected, Entero/Rhino (PCR) Not detected I & O for Last 24 hours: Intake & Output 07/24/24 07/25/24 07/26/24 07/27/24 23:59 23:59 23:59 23:59 Weight 99.79 kg Constitutional Constitutional: mild distress, obese and cooperative *Routine HEENT Exam Head: Present normocephalic and atraumatic Eye: Present EOMI and PERRL ENT: Present mucous membranes moist *Routine Neck Exam Neck: Present supple and trachea midline; Absent JVD or lymphadenopathy *Routine Respiratory Exam Respiratory: Present normal respiratory effort and symmetric chest movement; Absent respiratory distress, rhonchi or wheezes *Routine Cardiovascular Exam Cardiovascular: Present RRR *Routine Abdominal Exam Abdominal: Present soft; Absent tenderness Comments: Hyperactive bowel sounds *Routine Rectal Exam Rectal:: deferred *Routine Genitalia Exam Genitalia:: deferred *Routine Extremities Exam Extremities: Present full ROM and normal capillary refill; Absent clubbing or edema *Routine Skin Exam Skin: Present intact and warm; Absent wounds or rash *Routine Neurological Exam Neurological: Present alert, oriented X3, moving all extremities, vision grossly intact, hearing grossly intact and normal speech; Absent sensory deficit, motor deficit or altered mental status Comments: Fatigued but alert x 3 Routine Psychiatric Exam Psychiatric: Present normal affect, normal thought process, cooperative, good insight and good judgment Assessment and Plan *Assessment and plan (1) Severe sepsis without septic shock: Status: Acute Category: Medical Code(s): A41.9 - Sepsis, unspecified organism; R65.20 - Severe sepsis without septic shock (2) Acute nontraumatic kidney injury: Status: Acute Category: Medical Code(s): N17.9 - Acute kidney failure, unspecified (3) Diarrhea: Status: Acute Category: Medical Code(s): R19.7 - Diarrhea, unspecified (4) HLD (hyperlipidemia): Status: Acute Qualifiers: Hyperlipidemia type: mixed hyperlipidemia Qualified Code(s): E78.2 - Mixed hyperlipidemia Category: Medical Code(s): E78.5 - Hyperlipidemia, unspecified (5) Coronary artery disease: Status: Acute Qualifiers: Associated angina: without angina Coronary Disease-Associated Artery/Lesion type: [place] artery [place] vs. transplanted heart: [place] heart Qualified Code(s): I25.10 - Atherosclerotic heart disease of [place] coronary artery without angina pectoris Category: Medical Code(s): I25.10 - Atherosclerotic heart disease of [place] coronary artery without angina pectoris (6) Stented coronary artery: Status: Acute Category: Surgical Code(s): Z95.5 - Presence of coronary angioplasty implant and graft (7) HTN (hypertension): Status: Acute Qualifiers: Hypertension type: primary hypertension Qualified Code(s): I10 - Essential (primary) hypertension Category: Medical Code(s): I10 - Essential (primary) hypertension (8) Tobacco dependence: Status: Acute Category: Medical Code(s): F17.200 - Nicotine dependence, unspecified, uncomplicated Plan 53-year-old male admitted a week ago with concern for pneumonia and NSTEMI. Treated with antibiotics and underwent left heart cath. Received 1 stent. Since getting home has had persistent/worsening diarrhea. Had an episode of nausea and vomiting today. Was significantly weak. Came to the ER for further evaluation. On workup found to have YODIT, white count of 27,000, and concern for sepsis again. Suspected source in stool or urine. Discussed case with ER provider, request admission for antibiotics, further workup, and fluid resuscitation. I agreed to admit for further treatment. Receiving fluid bolus. Blood pressure soft but not necessitating pressors at this time. Will consult GI due to patient's acute worsening of chronic diarrhea. Problems addressed as follows: Severe sepsis YODIT -Tachycardic, white count of 27K, suspected infection in urine or stool. Urinalysis shows some abnormalities. Blood and urine cultures pending. Stool panel pending. -Continue Zosyn 3.375 g every 8 hours -Creatinine elevated 2.3, baseline of 1. BUN 24. Differential includes dehydration, prerenal status, contrast-induced nephropathy, YODIT due to ARB. Will hold ARB at this time. Repeat BMP this evening. Repeat CBC, CMP, magnesium ordered for the morning. -Procalcitonin 0.78. -Respiratory panel negative Acute on chronic diarrhea: -Will add stool lactoferrin and calprotectin, celiac panel pending -GI consulted to evaluate morning. Patient was post to get outpatient EGD and colonoscopy on Thursday. Further recommendations pending GI eval -Hold pantoprazole due to worsening diarrhea after previous admission CAD, recent stent Hypertension -Continue dual antiplatelet therapy with aspirin 81 mg daily and prasugrel 10 mg. -Holding ARB, diuretic, metoprolol. Consider resuming if blood pressure improves and kidney function improves -Hold Lipitor in the acute setting with diarrhea and YODIT Tobacco use disorder: Nicotine patch daily as needed Full code DAPT N.p.o. at midnight
[2024-07-27] MEDS: HYDROCORTISONE SOD SUCCINATE 100MG VIAL 100 MG IV (15:26)
--- NOTE | 2024-07-27 15:52 | PC.NURSE ---
report called to paulina on second floor
[2024-07-27 16:17] LABS: Reflex Lactic Add Lactic Reflex
[2024-07-27 16:59] LABS: Lactic Acid Follow Up (RFLX 1) 1.4 mmol/L (0.7-2.1)
[2024-07-27] MEDS: VANCOMYCIN HCL 1,500 MG in 0.9 % SODIUM CHLORIDE 250 ML 125 MG IV (17:06)
[2024-07-27 18:50] LABS: Microscopic, Urine URINE MICROSCOPIC (MICROSCOPIC)
[2024-07-27 19:02] LABS: Bilirubin,Urine Negative (Negative); Blood, Urine 2+ (Negative); Color,Urine YELLOW (Yellow); Glucose,Urine (UA) Negative (Negative); Ketones,Urine Negative (Negative); Leukocyte Esterase,Urine Negative (Negative); Nitrate,Urine Negative (Negative); Protein,Urine 1+ (Negative); Specific Gravity, Urine 1.025 (1.005-1.030); Urobilinogen,Urine 0.2 EU/dl (0.2)
[2024-07-27 19:34] LABS: RBC,Urine 20-50 #/hpf (0-3)
[2024-07-27 19:35] LABS: Amorphous Sediment,Urine 2+ /lpf; Appearance,Urine Cloudy (Clear); Bacteria,Urine 2+ /lpf
[2024-07-27] MEDS: ATORVASTATIN 40MG TABLET 40 MG PO (20:55)
[2024-07-27] MEDS: PIPERCILLIN/TAZO 3.375 GM in 0.9 % SODIUM CHLORIDE 50 ML IV (20:55)
[2024-07-27 21:39] LABS: Anion Gap 9.8 mEq/L (5-15); Blood Urea Nitrogen 25 mg/dl (9-20); Calcium 8.1 mg/dl (8.4-10.2); Carbon Dioxide 27 mmol/L (22.0-30.0); Chloride 103 mmol/L (98-107); Creatinine Clearance Estimated 74 mL/min (50-200); Estimated Glomerular Filt Rate 45 ml/min (>60); GFR (African American) 55 ML/MIN (>60); Glucose 147 mg/dl (74-100); Potassium 3.8 mmoL/L (3.5-5.1); Sodium 136 mmol/L (136-145)
[2024-07-28] VITALS: BP 106/65; PULSE 81; PULSE 84; RESP 18; TEMP 37.5; O2SAT 93
[2024-07-28 04:00] VITALS: BP 100/70; PULSE 76; PULSE 84; RESP 18; TEMP 37.4; O2SAT 93; BMI 31.6
[2024-07-28] MEDS: PIPERCILLIN/TAZO 3.375 GM in 0.9 % SODIUM CHLORIDE 50 ML IV ×3 (04:55→20:27)
--- NOTE | 2024-07-28 05:01 | PC.NURSE ---
Patient had a good shift and has rested through the night. He has not had a BM but has uses the urinal to void. no other complaints
[2024-07-28 06:14] LABS: Mean Corpuscular Hemoglobin 30.9 pg (27.0-31.2); Mean Corpuscular Volume 90.9 fl (80-94); Platelet Count 281 K/mm3 (142-424); Red Blood Count 3.85 M/mm3 (4.60-6.20); Red Cell Distribution Width 12.6 % (11.5-17.5); White Blood Count 19.5 K/mm3 (4.8-10.8)
[2024-07-28 06:15] LABS: Albumin Level 3.1 g/dl (3.5-5.0); Basophils # 0.1 K/mm3 (0-0.2); Basophils % 0.3 % (0.1-2.0); Chloride 108 mmol/L (98-107); Eosinophils % 0.1 % (0.1-12.0); Lymphocytes % 10.1 % (10-50); MANUAL DIFFERENTIAL MANUAL DIFFERENTIAL (MANUAL DIFF); Mean Platelet Volume 9.7 fl (7.4-10.4); Monocytes # 1.4 K/mm3 (0.1-1.0); Monocytes % 7.2 % (1.7-9.3); Neutrophils % 81.9 % (37.0-80.0)
[2024-07-28 06:16] LABS: Potassium 3.7 mmoL/L (3.5-5.1); Sodium 134 mmol/L (136-145)
[2024-07-28 06:18] LABS: Alanine Aminotransferase 32 U/L (12-78); Anion Gap 4.7 mEq/L (5-15); Aspartate Amino Transferase 32 U/L (17-59); Blood Urea Nitrogen 25 mg/dl (9-20); Carbon Dioxide 25 mmol/L (22.0-30.0); Creatinine Clearance Estimated 91 mL/min (50-200); Estimated Glomerular Filt Rate 57 ml/min (>60); GFR (African American) 69 ML/MIN (>60); Globulin 3.2 g/dL (1.3-3.2); Total Protein,Serum 6.3 g/dl (6.3-8.2)
[2024-07-28 06:19] LABS: Alkaline Phosphatase 59 U/L (38-126); Bilirubin,Total 1.2 mg/dl (0.2-1.3); Calcium 8.2 mg/dl (8.4-10.2); Glucose 116 mg/dl (74-100); Magnesium 2.2 mg/dl (1.6-2.3)
[2024-07-28 08:00] VITALS: BP 110/72; PULSE 68; PULSE 74; RESP 19; TEMP 36.7; O2SAT 93
[2024-07-28 08:37] LABS: Lymphocytes % 8 % (10-50); Monocytes % 3 % (2-9); Neutrophils % 89 % (42-76); Platelet Estimate Normal; RBC Morphology Normal; Total Cells Counted 100
[2024-07-28] MEDS: ASPIRIN EC 81MG TABLET 81 MG PO (09:24)
[2024-07-28] MEDS: PRASUGREL 10MG TAB 10 MG PO (09:24)
[2024-07-28 12:00] VITALS: BP 115/73; PULSE 70; PULSE 71; RESP 18; TEMP 36.6; O2SAT 94
[2024-07-28 13:21] LABS: Adenovirus F 40/41, stool Not Detected (NotDetected); Astrovirus Not Detected (NotDetected); Campylobacter Not Detected (NotDetected); Clostridium Difficile A/B, PCR Not Detected (NotDetected); Cryptosporidium Not Detected (NotDetected); Cyclospora Cayetanesis Not Detected (NotDetected); Entamoeba histolytica Not Detected (NotDetected); Enteroaggregative E coli Not Detected (NotDetected); Enteropathogenic E coli Not Detected (NotDetected); Enterotoxigenic E coli Not Detected (NotDetected); Giardia lamblia Not Detected (NotDetected); Norovirus Not Detected (NotDetected); Plesimonas Shigalloides, PCR Not Detected (NotDetected); Rotavirus A Not Detected (NotDetected); Salmonella, PCR Not Detected (NotDetected); Sapovirus Not Detected (NotDetected); Shiga-like toxin E coli Not Detected (NotDetected); Shigella Enterovasive E coli Not Detected (NotDetected); Vibrio Cholerae Not Detected (NotDetected); Vibrio, PCR Not Detected (NotDetected); Yersinia Entercolitica, PCR Not Detected (NotDetected)
--- NOTE | 2024-07-28 15:07 | EXP.GE.CONS ---
History of Present Illness *Admission Date: 07/27/24 *History of present illness: Mr. Henriquez is a 53-year-old gentleman who was admitted for presumptive sepsis primarily because of an elevated white blood cell count of 27,000 and diarrhea. The patient does have intermittent diarrhea alternating with constipation for a long period of time. He was admitted on 07/17 for 3 days for drug-eluting stent placement. After discharge, he has had increased diarrhea. He presented with weakness and some nausea and vomiting. At the ED, he was found to be hypotensive but not since. He was given antibiotics. The patient does not report any abdominal pain, weight loss, rectal bleeding or fever. The patient has not been hypotensive or tachycardic and has no change in cognitive status. The patient does report gassiness with alternating bowel habits. He does have incomplete defecation with excessive wiping and some hemorrhoidal bleeding and hemorrhoidal prolapse. He does report some belching and globus sensation with throat swelling. He has had a history of reflux. He was set up for EGD/colonoscopy tomorrow in [place] (Dr. Suraj Martin?general surgery). This has been canceled. His urine Did show 3+ for blood and 2+ urine bacteria. [facility] Disclaimer: The information contained in this section may have been updated after the patient was seen, as this information can be updated by other users. Medical History Chills HLD (hyperlipidemia) Coronary artery disease Abnormal electrocardiogram [ECG] [EKG] Non-STEMI (non-ST elevated myocardial infarction) LOYD (obstructive sleep apnea) Tobacco dependence BMI 35.0-35.9,adult HTN (hypertension) Surgical History Stented coronary artery S/P lumbar laminectomy Superior glenoid labrum lesion of right shoulder Family History Other Adopted Social History Smoking Status: Current every day smoker tobacco type: cigarettes packs per day: 1 years smoked: 30 alcohol intake: current alcohol intake frequency: 3 or more drinks per day current occupational status: employed Travel in the last 8 weeks: None Have you lived/traveled outside US in past 30 days?: No Contact w/someone who lives/traveled outside US past 30 days?: No Exposure to someone with infectious disease in past 14 days?: No Do you have a fever (greater than 100.4 F or 38 C)?: No Have you tested positive for COVID-19: No Exposed to someone with COVID-19 in past 14 days?: No Do you have a sore throat?: Yes Do you have a cough?: Yes Do you have any weakness?: Yes Do you have any diarrhea?: No Are you experiencing any unusual bleeding?: No Do you have any muscle aches/pain?: No Do you have any abdominal pain?: No Are you experiencing loss of taste or smell?: No Meds Home Medications and Allergies Home Medications ?Medication ?Instructions ?Recorded ?Confirmed ?Type losartan 50 mg-hydrochlorothiazide 1 tab PO DAILY 07/17/24 07/27/24 History 12.5 mg tablet nicotine 21 mg/24 hr daily 1 patch transdermal DAILY #28 ea 07/20/24 07/27/24 Rx transdermal patch aspirin 81 mg tablet,delayed 81 mg PO DAILY #90 tabs 07/27/24 07/27/24 Rx release atorvastatin 40 mg tablet 40 mg PO HS #90 tabs 07/27/24 07/27/24 Rx metoprolol succinate 50 mg 50 mg PO DAILY #90 tabs 07/27/24 07/27/24 Rx tablet,extended release 24 hr (Toprol XL) pantoprazole 40 mg tablet,delayed 40 mg PO DAILY #90 tabs 07/27/24 07/27/24 Rx release prasugrel 10 mg tablet 10 mg PO DAILY #90 tabs 07/27/24 07/27/24 Rx New Prescriptions to Start Prescriptions: Allergies Allergy/AdvReac Type Severity Reaction Status Date / Time No Known Allergies Allergy Verified 07/27/24 10:28 Exam (Inpt) Vital signs and Labs for Last 24 Hours: Temp Pulse Resp BP Pulse Ox O2 Del Method 97.9 F 71 18 115/73 94 L Room Air 07/28/24 12:00 07/28/24 12:00 07/28/24 12:00 07/28/24 12:00 07/28/24 12:00 07/28/24 14:48 Laboratory Results - last 24 hr 07/27/24 16:41: Lactate 1.4 07/27/24 18:22: Urine Color Yellow, Urine Appearance Cloudy, Urine pH 6.0, Ur Specific [place] 1.025, Urine Protein 1+ A, Urine Glucose (UA) Negative, Urine Ketones Negative, Urine Blood 2+ A, Urine Nitrate Negative, Urine Bilirubin Negative, Urine Urobilinogen 0.2, Ur Leukocyte Esterase Negative, Urine RBC 20-50, Urine WBC 10-20, Ur Squamous Epith Cells 5-10, Amorphous Sediment 2+, Urine Bacteria 2+ 07/27/24 21:02: Sodium 136, Potassium 3.8, Chloride 103, Carbon Dioxide 27, Anion Gap 9.8, BUN 25 H, Creatinine 1.60 H D, Estimated Creat Clear 74, Estimated GFR 45 L, Est GFR ( Amer) 55 L D, Glucose 147 H, Calcium 8.1 L 07/28/24 05:23: WBC 19.5 H D, RBC 3.85 L, Hgb 12.0 L D, Hct 35.0 L, MCV 90.9, MCH 30.9, MCHC 34.0, RDW 12.6, Plt Count 281, MPV 9.7, Neut % (Auto) 81.9 H, Lymph % (Auto) 10.1, [place] % (Auto) 7.2, Eos % (Auto) 0.1, Baso % (Auto) 0.3, Neut # (Auto) 16.0 H, Lymph # (Auto) 2.0, [place] # (Auto) 1.4 H, Eos # (Auto) 0.0, Baso # (Auto) 0.1, Total Counted 100, Neutrophils % (Manual) 89 H, Lymphocytes % (Manual) 8 L, Monocytes % (Manual) 3, Platelet Estimate Normal, RBC Morphology Normal, Sodium 134 L, Potassium 3.7, Chloride 108 H, Carbon Dioxide 25, Anion Gap 4.7 L, BUN 25 H, Creatinine 1.30 H, Estimated Creat Clear 91, Estimated GFR 57 L, Est GFR ( Amer) 69 D, Glucose 116 H D, Calcium 8.2 L, Magnesium 2.2, Total Bilirubin 1.2, AST 32, ALT 32 D, Alkaline Phosphatase 59, Total Protein 6.3, Albumin 3.1 L D, Globulin 3.2, Albumin/Globulin Ratio 1.0 L I & O for Labs for Last 24 Hours: Intake & Output 07/25/24 07/26/24 07/27/24 07/28/24 23:59 23:59 23:59 23:59 Intake Total 240 / 390 390 / 390 Output Total 1175 / 1175 Balance 240 / -135 -785 / -785 Weight 220 lb 11.2 oz 220 lb 11.064 oz Microbiology Reports for the Last 24 Hours: Microbiology 07/27/24 13:24 Blood Blood Culture - Preliminary 07/27/24 13:06 Blood Blood Culture - Preliminary Results Labs 07/28/24 05:23 07/28/24 05:23 Labs: Laboratory Results - last 24 hr 07/27/24 16:41: Lactate 1.4 07/27/24 18:22: Urine Color Yellow, Urine Appearance Cloudy, Urine pH 6.0, Ur Specific [place] 1.025, Urine Protein 1+ A, Urine Glucose (UA) Negative, Urine Ketones Negative, Urine Blood 2+ A, Urine Nitrate Negative, Urine Bilirubin Negative, Urine Urobilinogen 0.2, Ur Leukocyte Esterase Negative, Urine RBC 20-50, Urine WBC 10-20, Ur Squamous Epith Cells 5-10, Amorphous Sediment 2+, Urine Bacteria 2+ 07/27/24 21:02: Sodium 136, Potassium 3.8, Chloride 103, Carbon Dioxide 27, Anion Gap 9.8, BUN 25 H, Creatinine 1.60 H D, Estimated Creat Clear 74, Estimated GFR 45 L, Est GFR ( Amer) 55 L D, Glucose 147 H, Calcium 8.1 L 07/28/24 05:23: WBC 19.5 H D, RBC 3.85 L, Hgb 12.0 L D, Hct 35.0 L, MCV 90.9, MCH 30.9, MCHC 34.0, RDW 12.6, Plt Count 281, MPV 9.7, Neut % (Auto) 81.9 H, Lymph % (Auto) 10.1, [place] % (Auto) 7.2, Eos % (Auto) 0.1, Baso % (Auto) 0.3, Neut # (Auto) 16.0 H, Lymph # (Auto) 2.0, [place] # (Auto) 1.4 H, Eos # (Auto) 0.0, Baso # (Auto) 0.1, Total Counted 100, Neutrophils % (Manual) 89 H, Lymphocytes % (Manual) 8 L, Monocytes % (Manual) 3, Platelet Estimate Normal, RBC Morphology Normal, Sodium 134 L, Potassium 3.7, Chloride 108 H, Carbon Dioxide 25, Anion Gap 4.7 L, BUN 25 H, Creatinine 1.30 H, Estimated Creat Clear 91, Estimated GFR 57 L, Est GFR ( Amer) 69 D, Glucose 116 H D, Calcium 8.2 L, Magnesium 2.2, Total Bilirubin 1.2, AST 32, ALT 32 D, Alkaline Phosphatase 59, Total Protein 6.3, Albumin 3.1 L D, Globulin 3.2, Albumin/Globulin Ratio 1.0 L Assessment and Plan *Assessment and plan (1) Elevated white blood cell count: Status: Acute Category: Medical Code(s): D72.829 - Elevated white blood cell count, unspecified (2) Diarrhea: Status: Acute Category: Medical Code(s): R19.7 - Diarrhea, unspecified (3) Gassiness: Status: Acute Category: Medical Code(s): R14.0 - Abdominal distension (gaseous) (4) Nausea: Status: Acute Category: Medical Code(s): R11.0 - Nausea (5) Vomiting: Status: Acute Qualifiers: Vomiting type: unspecified Nausea presence: with nausea Qualified Code(s): R11.2 - Nausea with vomiting, unspecified Category: Medical Code(s): R11.10 - Vomiting, unspecified Plan 1. Elevated white blood cell count. The patient does not appear to have any septic symptoms presently but did present with increased diarrhea after treatment for pneumonia and nausea and vomiting. First thought might be C. difficile colitis which is associated with a leukemoid reaction. The patient does have normal liver and pancreatic chemistries and I do not see any evidence of abdominal sepsis and he is relatively asymptomatic. I do feel that his weakness, hypertension or low blood pressure initially and nausea could be explained by enterocolitis such as C. difficile. PCR panel has been sent and will await these results. Additionally, for elective outpatient EGD/colonoscopy, patient is in agreement that we can do this here at [facility]. Given the fact that he has had the recent coronary stent placement, this does impact when we can do an elective outpatient endoscopy or colonoscopy. For patients who have undergone previous stenting with either BMS (bare metal stent) or GERONIMO (drug-eluting stent) and who will need cessation of one or both antiplatelet agents, we prefer to defer planned nonemergency, nonurgent noncardiac surgery or endoscopy until at least six months after stent implantation. The risks of noncardiac surgery before six months are increased after both BMS and GERONIMO type coronary stents because of the risk of stent thrombosis, myocardial infarction and bleeding. Certainly the risk is felt to be much smaller with the BMS (bare metal stent) and some would advocate elective surgery after 4 weeks with BMS. The data is conflicting. We also believe that endoscopic procedures are lower risk because of shallower depth of sedation/anesthesia as well as lesser need to stop the antiplatelet drugs. Many now advocate 3 months waiting period for an endoscopic procedure and avoidance of stopping the drug until 24 hours before procedure. I would recommend that we do the panendoscopy at 3 months. I do feel that he is some underlying long-term IBS and dyspepsia. I do feel that there are some measures that we can take that will help to primarily improve this including adding baseline psyllium fiber and some dietary measures.
[2024-07-28 20:00] VITALS: BP 129/78; PULSE 75; RESP 18; TEMP 36.9; O2SAT 95
[2024-07-28] MEDS: ATORVASTATIN 40MG TABLET 40 MG PO (20:26)
--- NOTE | 2024-07-28 22:04 | EXP.PN ---
Subjective *Date: 08/08/24 *Time: 12:08 Interval history: Patient doing better today, feeling overall better. Diarrhea essentialy resolved. Exam Data for Last 24 hours Vital signs and Labs for Last 24 Hours: Temp Pulse Resp BP Pulse Ox O2 Del Method 98.5 F 75 18 129/78 95 Room Air 07/28/24 20:00 07/28/24 20:00 07/28/24 20:00 07/28/24 20:00 07/28/24 20:00 07/28/24 21:00 Laboratory Results - last 24 hr 07/28/24 05:23: WBC 19.5 H D, RBC 3.85 L, Hgb 12.0 L D, Hct 35.0 L, MCV 90.9, MCH 30.9, MCHC 34.0, RDW 12.6, Plt Count 281, MPV 9.7, Neut % (Auto) 81.9 H, Lymph % (Auto) 10.1, [place] % (Auto) 7.2, Eos % (Auto) 0.1, Baso % (Auto) 0.3, Neut # (Auto) 16.0 H, Lymph # (Auto) 2.0, [place] # (Auto) 1.4 H, Eos # (Auto) 0.0, Baso # (Auto) 0.1, Total Counted 100, Neutrophils % (Manual) 89 H, Lymphocytes % (Manual) 8 L, Monocytes % (Manual) 3, Platelet Estimate Normal, RBC Morphology Normal, Sodium 134 L, Potassium 3.7, Chloride 108 H, Carbon Dioxide 25, Anion Gap 4.7 L, BUN 25 H, Creatinine 1.30 H, Estimated Creat Clear 91, Estimated GFR 57 L, Est GFR ( Amer) 69 D, Glucose 116 H D, Calcium 8.2 L, Magnesium 2.2, Total Bilirubin 1.2, AST 32, ALT 32 D, Alkaline Phosphatase 59, Total Protein 6.3, Albumin 3.1 L D, Globulin 3.2, Albumin/Globulin Ratio 1.0 L I & O for Last 24 hours: Intake & Output 07/25/24 07/26/24 07/27/24 07/28/24 23:59 23:59 23:59 23:59 Intake Total 240 / 390 690 / 690 Output Total 1175 / 1175 Balance 240 / -135 -485 / -485 Weight 100.108 kg 100.104 kg Microbiology Reports for the Last 24 Hours: Microbiology 07/27/24 13:24 Blood Blood Culture - Preliminary 07/27/24 13:06 Blood Blood Culture - Preliminary Constitutional Constitutional: no acute distress *Routine HEENT Exam Head: Present normocephalic Eye: Present EOMI and PERRL ENT: Present mucous membranes moist *Routine Neck Exam Neck: Present supple; Absent lymphadenopathy *Routine Respiratory Exam Respiratory: Present CTA bilaterally *Routine Cardiovascular Exam Cardiovascular: Present RRR *Routine Abdominal Exam Abdominal: Present soft and normoactive bowel sounds; Absent tenderness *Routine Extremities Exam Extremities: Absent cyanosis, clubbing or edema *Routine Skin Exam Skin: Present warm; Absent rash *Routine Neurological Exam Neurological: Present alert and oriented X3 Assessment and Plan *Assessment and plan (1) Severe sepsis without septic shock: Status: Acute Category: Medical Code(s): A41.9 - Sepsis, unspecified organism; R65.20 - Severe sepsis without septic shock (2) Acute nontraumatic kidney injury: Status: Acute Category: Medical Code(s): N17.9 - Acute kidney failure, unspecified (3) Diarrhea: Status: Acute Category: Medical Code(s): R19.7 - Diarrhea, unspecified (4) HLD (hyperlipidemia): Status: Acute Qualifiers: Hyperlipidemia type: mixed hyperlipidemia Qualified Code(s): E78.2 - Mixed hyperlipidemia Category: Medical Code(s): E78.5 - Hyperlipidemia, unspecified (5) Coronary artery disease: Status: Acute Qualifiers: Coronary Disease-Associated Artery/Lesion type: [place] artery [place] vs. transplanted heart: [place] heart Associated angina: without angina Qualified Code(s): I25.10 - Atherosclerotic heart disease of [place] coronary artery without angina pectoris Category: Medical Code(s): I25.10 - Atherosclerotic heart disease of [place] coronary artery without angina pectoris (6) Stented coronary artery: Status: Acute Category: Surgical Code(s): Z95.5 - Presence of coronary angioplasty implant and graft (7) HTN (hypertension): Status: Acute Qualifiers: Hypertension type: primary hypertension Qualified Code(s): I10 - Essential (primary) hypertension Category: Medical Code(s): I10 - Essential (primary) hypertension (8) Tobacco dependence: Status: Acute Category: Medical Code(s): F17.200 - Nicotine dependence, unspecified, uncomplicated Plan 53-year-old male admitted a week ago with concern for pneumonia and NSTEMI. Treated with antibiotics and underwent left heart cath. Received 1 stent. Since getting home has had persistent/worsening diarrhea. Had an episode of nausea and vomiting today. Was significantly weak. Came to the ER for further evaluation. On workup found to have YODIT, white count of 27,000, and concern for sepsis again. Suspected source in stool or urine. Discussed case with ER provider, request admission for antibiotics, further workup, and fluid resuscitation. I agreed to admit for further treatment. Receiving fluid bolus. Blood pressure soft but not necessitating pressors at this time. Will consult GI due to patient's acute worsening of chronic diarrhea. Problems addressed as follows: #Severe sepsis, resolved #Staph aureus bacteremia - Initially Tachycardic, white count of 27K. - Blood cultures reveal staph aureus in both bottles, pending sensitivities. - COntinue emperic Zosyn day 2. - WBC improved from 27 to 19.5. #YODIT - Creatinine improved 2.3 to 1.3 today. Continue oral rehydration. #Acute on chronic diarrhea - Will add stool lactoferrin and calprotectin, celiac panel negative. Cdiff PCR negative. - GI consulted, recommended outpatient colonscopy for chronic diarrhea. - Symptoms essentially resolved today. #CAD, recent stent #Hypertension - Continue dual antiplatelet therapy with aspirin 81 mg daily and prasugrel 10 mg. - Holding ARB, diuretic, metoprolol. Consider resuming if blood pressure improves and kidney function improves. - Hold Lipitor in the acute setting with diarrhea and YODIT. #Tobacco use disorder - Nicotine patch daily as needed.
[2024-07-29] VITALS: BP 126/75; PULSE 73; RESP 16; TEMP 36.9; O2SAT 95
[2024-07-29 03:59] VITALS: BP 143/72; PULSE 79; RESP 16; TEMP 36.9; O2SAT 96; BMI 31.2
[2024-07-29] MEDS: PIPERCILLIN/TAZO 3.375 GM in 0.9 % SODIUM CHLORIDE 50 ML IV (05:43)
--- NOTE | 2024-07-29 06:05 | PC.NURSE ---
Alert and oriented. Independent in the room. Patient had no complaints throughout the night. Lost IV access in right AC, new IV inserted by Wan Huerta in right hand. Received antibiotics per oct. Call light in reach.
[2024-07-29 06:13] LABS: Chloride 109 mmol/L (98-107)
[2024-07-29 06:14] LABS: Albumin Level 3.4 g/dl (3.5-5.0); Potassium 4.1 mmoL/L (3.5-5.1); Sodium 136 mmol/L (136-145)
[2024-07-29 06:16] LABS: Blood Urea Nitrogen 21 mg/dl (9-20); Creatinine Clearance Estimated 106 mL/min (50-200); Estimated Glomerular Filt Rate 69 ml/min (>60); GFR (African American) 84 ML/MIN (>60)
[2024-07-29 06:17] LABS: Alanine Aminotransferase 34 U/L (12-78); Alkaline Phosphatase 62 U/L (38-126); Anion Gap 6.1 mEq/L (5-15); Aspartate Amino Transferase 33 U/L (17-59); Bilirubin,Total 1.2 mg/dl (0.2-1.3); Calcium 8.4 mg/dl (8.4-10.2); Carbon Dioxide 25 mmol/L (22.0-30.0); Globulin 3.3 g/dL (1.3-3.2); Glucose 101 mg/dl (74-100); Total Protein,Serum 6.7 g/dl (6.3-8.2)
[2024-07-29 06:20] LABS: Hematocrit 38.1 % (42.0-52.0); Hemoglobin 12.9 g/dL (14.1-18.0); Lymphocytes % 16.8 % (10-50); Mean Corpuscular HGB Conc 33.9 g/dL (31.8-35.4); Mean Corpuscular Hemoglobin 31.1 pg (27.0-31.2); Mean Corpuscular Volume 91.8 fl (80-94); Mean Platelet Volume 9.7 fl (7.4-10.4); Monocytes % 9.5 % (1.7-9.3); Neutrophils % 71.6 % (37.0-80.0); Platelet Count 276 K/mm3 (142-424); Red Blood Count 4.15 M/mm3 (4.60-6.20); Red Cell Distribution Width 12.5 % (11.5-17.5); White Blood Count 10.2 K/mm3 (4.8-10.8)
[2024-07-29 06:21] LABS: Basophils # 0.1 K/mm3 (0-0.2); Basophils % 0.5 % (0.1-2.0); Eosinophils # 0.1 K/mm3 (0.0-0.4); Eosinophils % 1.3 % (0.1-12.0); Lymphocytes # 1.7 K/mm3 (0.7-4.5); Neutrophils # 7.3 K/mm3 (1.8-7.8)
[2024-07-29 08:00] VITALS: BP 141/83; PULSE 74; RESP 18; TEMP 37; O2SAT 93
[2024-07-29] MEDS: ASPIRIN EC 81MG TABLET 81 MG PO (08:03)
[2024-07-29] MEDS: PRASUGREL 10MG TAB 10 MG PO (08:39)
[2024-07-29] MEDS: IRBESARTAN 75MG TABLET 75 MG PO (10:55)
[2024-07-29] MEDS: METOPROLOL SUCCINATE XL 50MG TABLET 50 MG PO (10:55)
--- NOTE | 2024-07-29 11:37 | EXP.DC.SUM ---
General Admission date:: 07/27/24 HPI HPI HPI: Mr. Henriquez is a 53-year-old gentleman who was admitted for presumptive sepsis primarily because of an elevated white blood cell count of 27,000 and diarrhea. The patient does have intermittent diarrhea alternating with constipation for a long period of time. He was admitted on 07/17 for 3 days for drug-eluting stent placement. After discharge, he has had increased diarrhea. He presented with weakness and some nausea and vomiting. At the ED, he was found to be hypotensive but not since. He was given antibiotics. The patient does not report any abdominal pain, weight loss, rectal bleeding or fever. The patient has not been hypotensive or tachycardic and has no change in cognitive status. The patient does report gassiness with alternating bowel habits. He does have incomplete defecation with excessive wiping and some hemorrhoidal bleeding and hemorrhoidal prolapse. He does report some belching and globus sensation with throat swelling. He has had a history of reflux. He was set up for EGD/colonoscopy tomorrow in [place] (Dr. Suraj Martin?general surgery). This has been canceled. His urine Did show 3+ for blood and 2+ urine bacteria. Hospital Course Hospital Course Hospital Course: 53-year-old male admitted a week ago with concern for pneumonia and NSTEMI. Treated with antibiotics and underwent left heart cath. Received 1 stent. Since getting home has had persistent/worsening diarrhea. Had an episode of nausea and vomiting today. Was significantly weak. Came to the ER for further evaluation. On workup found to have YODIT, white count of 27,000, and concern for sepsis again. #Severe sepsis, resolved #Staph aureus bacteremia - Initially Tachycardic, white count of 27K. - Blood cultures reveal staph aureus in both bottles, sensitive to penicillin. Repeat blood cultures NGTD. Presented with pneumonia a week ago. - Vitals stable. No signs of sepsis anymore. WBC improved from 27 to 11. - Discharged with amoxicillin 500mg BID for 10 days, in addition to probiotics to mitigate diarrhea. #YODIT - Creatinine improved 2.3 to 1.1 with IV and oral rehydration. #Acute on chronic diarrhea - Will add stool lactoferrin and calprotectin, celiac panel negative. Cdiff PCR negative. - GI consulted, recommended outpatient colonoscopy for chronic diarrhea. - Symptoms essentially resolved. - Will follow-up with GI. #CAD, recent stent #Hypertension - Continue dual antiplatelet therapy with aspirin 81 mg daily and prasugrel 10 mg. - Held ARB, HCTZ, metoprolol during admission due to YODIT. - Discontinued HCTZ-losartan combo, discharged with irbesartan 75mg daily. #Tobacco use disorder - Provided Nicotine patch daily as needed. Exam Data for Last 24 hours Vital signs and Labs for Last 24 Hours: Temp Pulse Resp BP Pulse Ox O2 Del Method 98.6 F 74 18 141/83 H 93 L Room Air 07/29/24 08:00 07/29/24 08:00 07/29/24 08:00 07/29/24 08:00 07/29/24 08:00 07/29/24 10:31 Laboratory Results - last 24 hr 07/28/24 13:09: Stl Aeromonas (PCR) Not detected, Stl C. cayetanensis PCR Not detected, Stool Rotavirus (PCR) Not detected, Stl Adenov F 40/41 PCR Not detected, Stool Astrovirus (PCR) Not detected, Stool Campylobacter PCR Not detected, Stl C.difficile Tox PCR Not detected, Stool Cryptosporidium PCR Not detected, Stl E.coli Shiga Tox PCR Not detected, Stool E coli O157 PCR Not detected, Stl Enterotoxigenic E PCR Not detected, Stool EPEC (PCR) Not detected, Stool EAEC (PCR) Not detected, Stl E. histolytica PCR Not detected, Stool Giardia Lamblia PCR Not detected, Stool Salmonella PCR Not detected, Stool Sapovirus (PCR) Not detected, Stl P. shigelloides PCR Not detected, Stl Shigella/EIEC PCR Not detected, St Y.enterocolitica PCR Not detected, Stool Vibrio (PCR) Not detected, Stl Vibrio cholerae PCR Not detected, Stl Norovirus GI/GII PCR Not detected 07/29/24 05:43: WBC 10.2 D, RBC 4.15 L, Hgb 12.9 L, Hct 38.1 L, MCV 91.8, MCH 31.1, MCHC 33.9, RDW 12.5, Plt Count 276, MPV 9.7, Neut % (Auto) 71.6, Lymph % (Auto) 16.8, [place] % (Auto) 9.5 H, Eos % (Auto) 1.3, Baso % (Auto) 0.5, Neut # (Auto) 7.3, Lymph # (Auto) 1.7, [place] # (Auto) 1.0, Eos # (Auto) 0.1, Baso # (Auto) 0.1, Sodium 136, Potassium 4.1, Chloride 109 H, Carbon Dioxide 25, Anion Gap 6.1, BUN 21 H, Creatinine 1.10, Estimated Creat Clear 106, Estimated GFR 69, Est GFR ( Amer) 84 D, Glucose 101 H, Calcium 8.4, Total Bilirubin 1.2, AST 33, ALT 34, Alkaline Phosphatase 62, Total Protein 6.7, Albumin 3.4 L, Globulin 3.3 H, Albumin/Globulin Ratio 1.0 L I & O for Last 24 hours: Intake & Output 07/26/24 07/27/24 07/28/24 07/29/24 23:59 23:59 23:59 23:59 Intake Total 240 / 390 690 / 970 520 / 520 Output Total 1175 / 1175 0 / 0 Balance 240 / -135 -485 / -205 520 / 520 Weight 100.108 kg 100.104 kg 98.928 kg Microbiology Reports for the Last 24 Hours: Microbiology 07/27/24 13:24 Blood Blood Culture - Preliminary Gram Positive Cocci 07/27/24 13:06 Blood Blood Culture - Preliminary Gram Positive Cocci Constitutional Constitutional: no acute distress *Routine HEENT Exam Head: Present normocephalic Eye: Present EOMI and PERRL ENT: Present mucous membranes moist *Routine Neck Exam Neck: Present supple; Absent lymphadenopathy *Routine Respiratory Exam Respiratory: Present CTA bilaterally *Routine Cardiovascular Exam Cardiovascular: Present RRR *Routine Abdominal Exam Abdominal: Present soft and normoactive bowel sounds; Absent tenderness *Routine Extremities Exam Extremities: Absent cyanosis, clubbing or edema *Routine Skin Exam Skin: Present warm; Absent rash *Routine Neurological Exam Neurological: Present alert and oriented X3 Results Data Completed and Pending Labs on day of discharge: Labs from last 24 hours 07/29/24 07/28/24 05:43 13:09 WBC 10.2 D RBC 4.15 L Hgb 12.9 L Hct 38.1 L MCV 91.8 MCH 31.1 MCHC 33.9 RDW 12.5 Plt Count 276 MPV 9.7 Neut % (Auto) 71.6 Lymph % (Auto) 16.8 [place] % (Auto) 9.5 H Eos % (Auto) 1.3 Baso % (Auto) 0.5 Neut # (Auto) 7.3 Lymph # (Auto) 1.7 [place] # (Auto) 1.0 Eos # (Auto) 0.1 Baso # (Auto) 0.1 Sodium 136 Potassium 4.1 Chloride 109 H Carbon Dioxide 25 Anion Gap 6.1 BUN 21 H Creatinine 1.10 Estimated Creat Clear 106 Estimated GFR 69 Est GFR ( Amer) 84 D Glucose 101 H Calcium 8.4 Total Bilirubin 1.2 AST 33 ALT 34 Alkaline Phosphatase 62 Total Protein 6.7 Albumin 3.4 L Globulin 3.3 H Albumin/Globulin Ratio 1.0 L Stl Aeromonas (PCR) Not detected Stl C. cayetanensis PCR Not detected Stool Rotavirus (PCR) Not detected Stl Adenov F 40/41 PCR Not detected Stool Astrovirus (PCR) Not detected Stool Campylobacter PCR Not detected Stl C.difficile Tox PCR Not detected Stool Cryptosporidium PCR Not detected Stl E.coli Shiga Tox PCR Not detected Stool E coli O157 PCR Not detected Stl Enterotoxigenic E PCR Not detected Stool EPEC (PCR) Not detected Stool EAEC (PCR) Not detected Stl E. histolytica PCR Not detected Stool Giardia Lamblia PCR Not detected Stool Salmonella PCR Not detected Stool Sapovirus (PCR) Not detected Stl P. shigelloides PCR Not detected Stl Shigella/EIEC PCR Not detected St Y.enterocolitica PCR Not detected Stool Vibrio (PCR) Not detected Stl Vibrio cholerae PCR Not detected Stl Norovirus GI/GII PCR Not detected Preliminary micro results at discharge 07/27/24 13:24 Blood Culture - Preliminary Blood Gram Positive Cocci 07/27/24 13:06 Blood Culture - Preliminary Blood Gram Positive Cocci DS: Diagnosis Discharge Diagnosis (1) Elevated white blood cell count: Status: Acute Code(s): D72.829 - Elevated white blood cell count, unspecified (2) Diarrhea: Status: Acute Code(s): R19.7 - Diarrhea, unspecified (3) Gassiness: Status: Acute Code(s): R14.0 - Abdominal distension (gaseous) (4) Nausea: Status: Acute Code(s): R11.0 - Nausea (5) Vomiting: Status: Acute Code(s): R11.10 - Vomiting, unspecified Qualifiers: Nausea presence: with nausea Vomiting type: unspecified Qualified Code(s): R11.2 - Nausea with vomiting, unspecified Meds Home Medications and Allergies Home Medications ?Medication ?Instructions ?Recorded ?Confirmed ?Type nicotine 21 mg/24 hr daily 1 patch transdermal DAILY #28 ea 07/20/24 07/27/24 Rx transdermal patch aspirin 81 mg tablet,delayed 81 mg PO DAILY #90 tabs 07/27/24 07/27/24 Rx release atorvastatin 40 mg tablet 40 mg PO HS #90 tabs 07/27/24 07/27/24 Rx metoprolol succinate 50 mg 50 mg PO DAILY #90 tabs 07/27/24 07/27/24 Rx tablet,extended release 24 hr (Toprol XL) pantoprazole 40 mg tablet,delayed 40 mg PO DAILY #90 tabs 07/27/24 07/27/24 Rx release prasugrel 10 mg tablet 10 mg PO DAILY #90 tabs 07/27/24 07/27/24 Rx Saccharomyces boulardii 250 mg 250 mg PO BID 10 days #20 caps 07/29/24 Rx capsule amoxicillin 500 mg capsule 500 mg PO BID 10 days #20 caps 07/29/24 Rx irbesartan 75 mg tablet 75 mg PO DAILY 30 days #30 tabs 07/29/24 Rx New Prescriptions to Start Prescriptions: Suraj Lora irbesartan Milvia,Suraj Saccharomyces boulardii Suraj Steel Allergies Allergy/AdvReac Type Severity Reaction Status Date / Time No Known Allergies Allergy Verified 07/27/24 10:28 Discharge Plan Disposition Patient Disposition: Home, Self-Care Condition: Fair Discharge Order Discharge Orders: Discharge Order (Routine); Ordered 07/29/24 Ordered By: Suraj Steel Follow up Plan Follow up with: Derick Peres MD [Primary Care Provider] - Enter time for follow up (please call for appointment) Suraj Luna MD [Staff Physician] - 08/29/24 1:30 pm Sandro Amaral II, MD [Staff Physician] - 08/12/24 Prescriptions/Medication Reconciliation: New irbesartan 75 mg Tablet 75 mg PO DAILY 30 Days Qty: 30 0RF amoxicillin 500 mg capsule 500 mg PO BID 10 Days Qty: 20 0RF Saccharomyces boulardii 250 mg capsule 250 mg PO BID 10 Days Qty: 20 0RF Continued prasugrel 10 mg tablet 10 mg PO DAILY Qty: 90 3RF metoprolol succinate [Toprol XL] 50 mg tablet extended release 24 hr 50 mg PO DAILY Qty: 90 3RF pantoprazole 40 mg tablet,delayed release (DR/EC) 40 mg PO DAILY Qty: 90 3RF atorvastatin 40 mg tablet 40 mg PO HS Qty: 90 3RF aspirin 81 mg tablet,delayed release (DR/EC) 81 mg PO DAILY Qty: 90 3RF nicotine 21 mg/24 hr patch 24 hour 1 patch transdermal DAILY Qty: 28 0RF Discontinued losartan-hydrochlorothiazide 50-12.5 mg tablet 1 tab PO DAILY Problem Reconciliation Problems Reviewed?: Yes Patient Discharge Instructions Additional Instructions: Bacterial growth in your blood (Staphylococcus aureus) is not growing resistance genes which is a good thing. We will treat it with amoxicillin for 10 days. Since you had diarrhea the last time you used antibiotics, I have prescribed you probiotics for the next 10 days as well to help with that. Your urine does show some blood in it. I have referred you to urology for further evaluation. Patient Instructions: Diarrhea, DI for Sepsis -- Adult Print Language: Irish Providers Primary Care Provider: Derick Peres Admit Provider: Luis Felipe Tanner Attending Provider: Luis Felipe Tanner
[2024-07-29 12:00] VITALS: BP 141/82; PULSE 66; RESP 16; TEMP 36.9; O2SAT 97
[2024-07-30 16:10] LABS: C difficile Toxins AB, EIA Negative (Negative)
[2024-07-30 17:41] LABS: Deamidated Gliadin Abs, IgA 4 units (0-19); Deamidated Gliadin Abs, IgG 2 units (0-19); Tissue Transglutaminase IgA Ab <2 U/mL (0-3); Tissue Transglutaminase IgG Ab 3 U/mL (0-5)
[2024-07-31 03:46] LABS: Calprotectin, Fecal 23 ug/g (0-120)
[2024-08-01 16:14] LABS: Endomysial IgA Antibody Negative (Negative)
--- NOTE | 2024-08-02 11:21 | SW/DCPLANNER ---
Phoned patient x2. Each time calling the messge comes up welcome to 3m. Kaushik Chacon
[2024-08-03 09:57] LABS: Reticulin IgA Antibody Negative titer (Neg:<1:2.5)
== END 2024-07-29 13:24 | disposition home or self-care (01) | DRG 392 ==
LOC: ER 13:33 → ICU 15:02 → 2ND 07-28 16:28
PROVIDERS: Internal Medicine Gastroenterology; Physician Assistant; Student in an Organized Health Care Education/Training Program; Admitting Provider Internal Medicine Adolescent Medicine; Emergency Provider Emergency Medicine; PCP Emergency Medicine; Visit Provider Internal Medicine Adolescent Medicine
DX: K52.9 Noninfective gastroenteritis and colitis, unspecified (principal); R78.81 Bacteremia; B95.61 Methicillin susceptible Staphylococcus aureus infection as the cause of diseases classified elsewhere; D72.829 Elevated white blood cell count, unspecified; I25.10 Atherosclerotic heart disease of native coronary artery without angina pectoris; I10 Essential (primary) hypertension; E66.9 Obesity, unspecified; I25.2 Old myocardial infarction; F17.210 Nicotine dependence, cigarettes, uncomplicated; E78.5 Hyperlipidemia, unspecified; Z79.01 Long term (current) use of anticoagulants; Z79.02 Long term (current) use of antithrombotics/antiplatelets; Z68.31 Body mass index [BMI] 31.0-31.9, adult; Z79.899 Other long term (current) drug therapy
CPT/HCPCS: 71250; 74176; 80048; 80053; 81001; 82803; 83516; 83605; 83630; 83690; 83735; 83993; 84145; 85007; 85025; 86255; 86256; 87040; 87077; 87086; 87186; 87324; 87507; 87633; 93005; 99291; J0131; J2405; J2543; J3370; J7030

== ENCOUNTER 2024-08-29 09:59 | Outpatient (CLI) | payer BC, SELFPAY ==
[2024-08-29 11:39] LABS: Prostate Specific Ag Screen 1.1 ng/ml (0.0-4.0)
[2024-08-29 12:19] LABS: Blood Urea Nitrogen 17 mg/dl (9-20); Estimated Glomerular Filt Rate 78 ml/min (>60); GFR (African American) 94 ML/MIN (>60)
[2024-08-29 14:54] LABS: Microscopic, Urine URINE MICROSCOPIC (MICROSCOPIC)
[2024-08-29 15:32] LABS: Appearance,Urine CLEAR (Clear); Bilirubin,Urine Negative (Negative); Blood, Urine Negative (Negative); Color,Urine DARK YELLOW (Yellow); Glucose,Urine (UA) Negative (Negative); Ketones,Urine Negative (Negative); Leukocyte Esterase,Urine Negative (Negative); Nitrate,Urine Negative (Negative); Protein,Urine TRACE (Negative); Urobilinogen,Urine 0.2 EU/dl (0.2)
[2024-08-29 16:20] LABS: Bacteria,Urine Trace /lpf
== END 2024-08-29 23:59 | disposition home or self-care (01) ==
LOC: LAB 09:59
PROVIDERS: PCP Emergency Medicine; Visit Provider Urology
DX: N40.0 Benign prostatic hyperplasia without lower urinary tract symptoms (principal); R31.9 Hematuria, unspecified
CPT/HCPCS: 36415; 81001; 82565; 84520; 87086; G0103

== ENCOUNTER 2024-09-19 09:28 | Day surgery (SDC) | payer BC, SELFPAY ==
[2024-09-16 10:10] VITALS: BMI 31.5
[2024-09-19 09:41] VITALS: BP 152/72; PULSE 81; RESP 16; TEMP 36.4; O2SAT 99
[2024-09-19] MEDS: LACTATED RINGERS 1000ML 1,000 ML 50 ML IV (09:55)
--- NOTE | 2024-09-19 10:10 | P.PNANES_ITS ---
[facility] Disclaimer: The information contained in this section may have been updated after the patient was seen, as this information can be updated by other users. Medical History Heart attack History of gastroesophageal reflux (GERD) [place] HLD (hyperlipidemia) Coronary artery disease Abnormal electrocardiogram [ECG] [EKG] Non-STEMI (non-ST elevated myocardial infarction) LOYD (obstructive sleep apnea) Tobacco dependence BMI 35.0-35.9,adult HTN (hypertension) Surgical History History of back surgery Stented coronary artery S/P lumbar laminectomy Superior glenoid labrum lesion of right shoulder Family History Other Adopted Social History (Updated 09/19/24 @ 09:53 by Mell Aguirre RN) Smoking Status: Former smoker tobacco type: cigarettes packs per day: 1 years smoked: 30 alcohol intake: current alcohol intake frequency: 3 or more drinks per day substance use type: denies use current occupational status: employed Travel in the last 8 weeks: None caffeine: Yes [facility] Anesthesia Checklist Patient Identification Patient Identification: Arm Band Structural Data Admitted From: Home Planned Operative Procedure/s: EGD/Colonoscopy Consent for Planned Operative Procedure(s) Verified: Yes Verified Documents: Surgical Consent, History and Physical and Cardiac Clearance NPO Status Verified Time NPO: 00:00 Additional verifications Anesthesia Reactions: No Airway Assessment Mallampati Score:: Class II C-Spine Mobility Assessed: Yes TMJ Mobility Assessed: Yes Dentition: Good Dentition Neurological Assessment Level of Consciousness: Awake, Alert and Appropriate Anesthesia Plan Anesthesia Risk discussed: Yes Anesthesia Plan: Verified ASA Class: III Anesthesia Type: MAC
[2024-09-19 10:34] VITALS: O2SAT 98
--- NOTE | 2024-09-19 10:40 | EXP.HP ---
History of Present Illness *Admission Date: 09/19/24 *Reason for visit:: Recent sepsis with irregular bowel function *History of present illness: Mr. Henriquez is a 53-year-old gentleman who is here for diagnostic panendoscopy. He had been admitted in July 2024 with some belching and globus sensation with throat swelling. He was also having irregular bowel function with alternating diarrhea and constipation. That has been more long-term.. The examination is deemed medically necessary for EGD and colonoscopy. The patient has been seen, interviewed and examined prior to the procedure by both myself and the anesthesia provider. [facility] Disclaimer: The information contained in this section may have been updated after the patient was seen, as this information can be updated by other users. Medical History (Updated 09/19/24 @ 10:43 by Sandro Amaral II, MD) Heart attack History of gastroesophageal reflux (GERD) Chills HLD (hyperlipidemia) Coronary artery disease Abnormal electrocardiogram [ECG] [EKG] Non-STEMI (non-ST elevated myocardial infarction) LOYD (obstructive sleep apnea) Tobacco dependence BMI 35.0-35.9,adult HTN (hypertension) Surgical History History of back surgery Stented coronary artery S/P lumbar laminectomy Superior glenoid labrum lesion of right shoulder Family History Other Adopted Social History (Updated 09/19/24 @ 10:11 by Charly Hong CRNA) Smoking Status: Former smoker tobacco type: cigarettes packs per day: 1 years smoked: 30 alcohol intake: current alcohol intake frequency: 3 or more drinks per day substance use type: denies use current occupational status: employed Travel in the last 8 weeks: None caffeine: Yes Have you lived/traveled outside [place] in past 30 days?: No Contact w/someone who lives/traveled outside [place] past 30 days?: No Exposure to someone with infectious disease in past 14 days?: No Do you have a fever (greater than 100.4 F or 38 C)?: No Have you tested positive for COVID-19: No Exposed to someone with COVID-19 in past 14 days?: No Do you have a sore throat?: No Do you have a cough?: No Do you have any weakness?: No Are you experiencing any nausea/vomitting?: No Do you have any diarrhea?: No Are you experiencing any unusual bleeding?: No Do you have any muscle aches/pain?: No Do you have any abdominal pain?: No Are you experiencing loss of taste or smell?: No Other Medical History Have you received the Flu Vaccine for this season: No Have you received the Pneumonia Vaccine: No Review of Systems Review of Systems Review of systems (narrative): Negative *Cardiovascular Comments: Negative *Gastrointestinal Comments: Negative *Genitourinary Comments: Negative *Musculoskeletal Comments: Negative *Neurologic Comments: Negative Meds Home Medications and Allergies Home Medications ?Medication ?Instructions ?Recorded ?Confirmed ?Type Saccharomyces boulardii 250 mg 250 mg PO BID 10 days #20 caps 07/29/24 09/19/24 Rx capsule aspirin 81 mg tablet,delayed 81 mg PO DAILY #90 tabs 08/16/24 09/19/24 Rx release atorvastatin 40 mg tablet 40 mg PO HS #90 tabs 08/16/24 09/19/24 Rx irbesartan 75 mg tablet 75 mg PO DAILY #90 tabs 08/16/24 09/19/24 Rx metoprolol succinate 50 mg 50 mg PO DAILY #90 tabs 08/16/24 09/19/24 Rx tablet,extended release 24 hr (Toprol XL) pantoprazole 40 mg tablet,delayed 40 mg PO DAILY #90 tabs 08/16/24 09/19/24 Rx release prasugrel HCl 10 mg tablet 10 mg PO DAILY #90 tabs 08/16/24 09/19/24 Rx tadalafil 5 mg tablet (Cialis) 5 mg PO DAILY #30 tabs 08/29/24 09/19/24 Rx sod picosulf 10 mg-magnes 3.5 175 ml PO DAILY Bowel Prep 2 doses 09/07/24 09/19/24 Rx gram-citric 12 gram/175 mL oral #350 mL solution (Clenpiq) New Prescriptions to Start Prescriptions: Allergies Allergy/AdvReac Type Severity Reaction Status Date / Time No Known Allergies Allergy Verified 09/19/24 09:41 Exam Data for Last 24 hours Vital signs and Labs for Last 24 Hours: Temp Pulse Resp BP Pulse Ox O2 Del Method O2 Flow Rate 97.6 F 81 16 152/72 H 99 Nasal Cannula 5 09/19/24 09:41 09/19/24 09:41 09/19/24 09:41 09/19/24 09:41 09/19/24 09:41 09/19/24 10:34 09/19/24 10:34 I & O for Last 24 hours: Intake & Output 09/16/24 09/17/24 09/18/24 09/19/24 23:59 23:59 23:59 23:59 Weight 220 lb *Routine HEENT Exam Head: Present normocephalic Eye: Present EOMI and PERRL ENT: Present mucous membranes moist *Routine Neck Exam Neck: Present supple *Routine Respiratory Exam Respiratory: Present CTA bilaterally *Routine Cardiovascular Exam Cardiovascular: Present RRR *Routine Abdominal Exam Abdominal: Present soft and normoactive bowel sounds; Absent tenderness *Routine Rectal Exam Rectal:: deferred *Routine Genitalia Exam Genitalia:: deferred *Routine Extremities Exam Extremities: Absent cyanosis, clubbing or edema *Routine Skin Exam Skin: Present warm; Absent rash *Routine Neurological Exam Neurological: Present alert and oriented X3 Assessment and Plan *Assessment and plan (1) Irregular bowel habits: Status: Acute Category: Medical Code(s): R19.8 - Other specified symptoms and signs involving the digestive system and abdomen (2) Dysphagia: Status: Acute Category: Medical Code(s): R13.10 - Dysphagia, unspecified Plan A/P: 1. Recent sepsis of unknown origin and some intermittent globus and irregular bowel function is the preprocedural diagnosis. The patient will be anesthetized/sedated using MAC sedation. The patient has been seen and examined. Cardiac and lung assessment prior to the examination is stable. Proceed with planned EGD/colonoscopy
--- NOTE | 2024-09-19 10:43 | P.PCN_ITS ---
[facility] Procedure Note Date: 09/19/24 Time: 10:49 Procedure Note:: Upper Endoscopy Procedure Report: Esophagogastroduodenoscopy with cold biopsies and TTS balloon dilation Endoscopost: Sandro Amaral II, MD Referring Physician: Derick Peres MD Date of Procedure: September 19, 2024 Equipment: Olympus GIF 190 standard upper endoscope Sedation: MAC sedation Indications: Mr. Henriquez is a 53-year-old gentleman who was recently admitted with sepsis. He did have a drug-eluting coronary stent placed in early July. He developed some diarrhea, weakness, nausea and vomiting. He was having some gassiness with alternating diarrhea and constipation. He also had some globus sensation, belching and throat swelling. Most of this has resolved. He had been arranged to have EGD and colonoscopy in [place] (Dr. Suraj Martin) and this was canceled. His PCR panel was negative. He does have a longer term IBS and dyspepsia. Procedure: Prior to the procedure, a history and physical exam was performed, and patient's medications and allergies were reviewed. The risks, benefits and alternatives of the sedation and procedure were discussed with the patient. All questions were answered and informed consent was obtained. The patient was brought to the procedure room. Patient identification and proposed procedure were verified by the physician and the nurse. The patient was placed in a left lateral decubitus position and the scope was passed under direct vision. Throughout the procedure, the patient's blood pressure, pulse, and oxygen saturations were monitored continuously. The upper GI endoscopy was accomplished without difficulty. The patient tolerated the procedure well. Findings: The scope was passed directly into the upper esophagus and advanced to the third portion of the duodenum. The post bulbar duodenum and duodenal bulb were normal with normal mucosa and conniventes. The scope was withdrawn through a normal duodenal bulb and pylorus into the stomach. There was some mild bile reflux with mild linear reactive gastropathy of the antrum. There were a couple of erosions in the fundus of the stomach with minor amount of heme/coffee- ground. Biopsies were taken along the lesser curvature to rule out H. pylori. Upon retroflexion there was a very small 1 to 2 cm sliding hiatal hernia. The scope was then withdrawn into the esophagus. There was no evidence of reflux esophagitis. There were tertiary contractions and evidence of moderate esophageal dysmotility. The entire esophagus was dilated to 60 [place]/20 mm with a TTS hydrostatic balloon. There was minimal resistance. The remainder of the esophageal mucosa was normal. Impression: 1. Nonerosive GERD with moderate esophageal dysmotility and small 1 to 2 cm sliding hiatal hernia 2. Bile reflux with mild linear reactive gastropathy and proximal erosive gastropathy Plan: I will follow-up the biopsies and proceed with colonoscopy. I will discuss the findings with the patient and family.
--- NOTE | 2024-09-19 10:53 | P.PCN_ITS ---
[facility] Procedure Note Date: 09/19/24 Time: 11:07 Procedure Note:: Colonoscopy Procedure Report: Colonoscopy with cold snare polypectomy Endoscopist: Sandro Amaral II, MD Referring physician: Derick Peres MD Date of Procedure: September 19, 2024 Equipment: Olympus 190 variable stiffness pediatric colonoscope Sedation: MAC sedation Indication: Mr. Henriquez is a 53-year-old gentleman who is here for diagnostic colonoscopy. The patient was admitted with sepsis and some diarrhea in July 2024. He had just had a prior coronary stent placement. He had been set up for panendoscopy in [place]. He has had longstanding IBS and dyspepsia. He did have some mild decline in his hemoglobin hematocrit. He reports no present rectal bleeding, abdominal pain, weight loss or family history of colon cancer. Procedure: Prior to the procedure, a history and physical exam was performed, and patient's medications and allergies were reviewed. The risks, benefits and alternatives of the sedation and procedure were discussed with the patient. All questions were answered and informed consent was obtained. The patient was brought to the procedure room. Patient identification and proposed procedure were verified by the physician and the nurse. The patient was placed in a left lateral decubitus position and the scope was passed under direct vision. Throughout the procedure, the patient's blood pressure, pulse, and oxygen saturations were monitored continuously. The colonoscopy was accomplished without difficulty. The patient tolerated the procedure well. Findings: On digital rectal examination there was normal rectal tone. There were no external hemorrhoids. The prostate was 2+, smooth, soft, symmetric without nodules. The colonoscope was introduced through the anal canal to the rectum and advanced to the cecum. The ileocecal valve and appendiceal orifice were i dentified. The scope was advanced a short distance into the ileum which appeared grossly normal. The scope was then withdrawn into the colon. There were 5 diminutive polyps (ascending x 1 (4 mm), transverse x 1 (5 mm), sigmoid x 3 (3, 3 and 5 mm)). These were all removed via cold snare polypectomy. The remaining cecum, ascending and transverse colon and mucosa were grossly normal. There were very mildly scattered diverticuli throughout the descending and sigmoid colon (LEFT colon). The rectum itself was normal. Upon retroflexion within the rectum there were grade 1-2 internal hemorrhoids. The preparation was excellent throughout with [place] Preparation Score of 9. The cecal time was 14 minutes. Impression: 1. Diminutive colonic polyps x 5 2. Mild sigmoid diverticulosis 3. Grade 1-2 internal hemorrhoids Plan: I will follow-up the polyp histology and recommend repeat surveillance colonoscopy again in 3 to 5 years. I would encourage bulking psyllium fiber supplementation on a maintenance basis.
[2024-09-19 11:13] VITALS: BP 98/55; PULSE 66; RESP 15; TEMP 36.3; O2SAT 95
[2024-09-19 11:23] VITALS: BP 93/53; PULSE 59; RESP 15; O2SAT 97
[2024-09-19 11:33] VITALS: BP 100/53; PULSE 68; RESP 18; O2SAT 98
[2024-09-19 11:43] VITALS: BP 117/63; PULSE 66; RESP 18; O2SAT 98
== END 2024-09-19 12:25 | disposition home or self-care (01) ==
PROVIDERS: PCP Emergency Medicine; Visit Provider Internal Medicine Gastroenterology
PROC: 0DJ08ZZ Inspection of Upper Intestinal Tract, Via Natural or Artificial Opening Endoscopic (ICD-10-PCS; CPT 45378; principal; 2024-09-19 11:00)
DX: R13.10 Dysphagia, unspecified (principal); R19.8 Other specified symptoms and signs involving the digestive system and abdomen; R19.4 Change in bowel habit; K44.9 Diaphragmatic hernia without obstruction or gangrene; K22.4 Dyskinesia of esophagus; K21.9 Gastro-esophageal reflux disease without esophagitis; K31.9 Disease of stomach and duodenum, unspecified; K58.9 Irritable bowel syndrome, unspecified; R10.13 Epigastric pain; K63.5 Polyp of colon; K57.30 Diverticulosis of large intestine without perforation or abscess without bleeding; K64.8 Other hemorrhoids
CPT/HCPCS: 43239; 43249; 45385; C1726; J7120

== ENCOUNTER 2024-11-21 09:29 | Outpatient (CLI) | payer BC, SELFPAY ==
--- OUTSIDE RECORDS SUMMARY | 2024-11-21 09:32 | XMS_ITS | Data Portability ---
Author Organization KIMI TAIWO Morgan CUSHING CLOSED Address [address] [facility] [address] [place] [address] Assessment Encounter Date Assessment Date Assessment LastModified by Organization Details LastModified Time 05/15/2022 05/15/2022 Pt is S/P left L3-4 microdiscectomy 04/30/2022. Here for staple removal. Incision is well healed. No signs of infection. Yale were removed. Pt tolerated procedure well. [email or web address] Not available 05/15/2022 11:27:52 06/03/2022 06/03/2022 Doing well after undergoing a left L3-4 microlumbar discectomy. Severe pain resolved. I gave him some postop instructions. He needs to gradually increase his activity level but still keep it fairly light for now. 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 He'll need to do light duty work for one month. Follow-up when necessary. He and his were happy with the plan. [email or web address] Not available 06/03/2022 11:18:35 Plan of Treatment Reminders Order Date Submit Date Provider Last Modified By Organization Details Last Modified Time Details Appointments None record ed. Lab None record ed. Referral None record ed. Procedures None record ed. Surgeries None record ed. Imaging None record ed. Medication Orders None record ed. Patient TargetsNo targets recorded. Patient Instructions Encounter Date Encounter Id Patient Instructions Last Modified By Organization Details Last Modified Time 05/12/2024 [id number] 1. Discussed criteria for INSPIRE qualification. Order updated sleep study. Pending qualification based on updated sleep study, next step would be DISE. Discussed CPAP is the gold standard treatment for sleep apnea. 2. F/u after updated sleep study [email or web address] Not available 05/12/2024 16:23:11 We discussed options for sleep apnea including diet and lifestyle changes/weight loss, oral appliances, CPAP, and surgery. We discussed that oral appliances are typically more effective for mild to moderate sleep apnea and the risks of dental issues/TMJ associated with them. We discussed that CPAP is the gold standard of treatment for LOYD. We discussed with surgical procedure's patient would potentially be a candidate for based of their PSG, BMI, and anatomy. I independently reviewed and evaluated patient's sleep study. Last sleep study was about 10 years ago. Very severe sleep apnea at that time. We discussed the inspire implant. Would need an updated sleep study to reassess and make sure he still would qualify. 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 Will have not heard of anything like this before the inspire I would assume a similar thing would apply. He wants to go ahead and do the updated sleep study and then reassess if this is something he could actually get. [email or web address] Not available 05/12/2024 18:28:02 Reason for Referral None Reported. Results Created Date Observation Date Name Description Value Unit Range Abnormal Flag Note LastModifiedBy Organization Detail LastModifiedTime 04/30/20 22 04/30/2022 COMPL ETE BLOOD COUNT white blood cells 8.0 K/uL 3.8-10 .8 normal Not Available [facility] [address] [place] [address], [address], 04/30/2022 07:05:32 04/30/20 22 04/30/2022 COMPL ETE BLOOD COUNT red blood cells 5.20 M/uL 4.20-5 .80 normal Not Available [facility] [address] [place], [address], 04/30/2022 07:05:32 04/30/20 22 04/30/2022 COMPL ETE BLOOD COUNT hemoglobin 16.5 g/dL 14.0-1 8.0 normal Not Available [facility] [place], [address], 04/30/2022 07:05:32 04/30/20 22 04/30/2022 COMPL ETE BLOOD COUNT hematocrit 47.9 % 40.0-5 2.0 normal Not Available [facility] [address] [place] [address], [address], 04/30/2022 07:05:32 04/30/20 22 04/30/2022 COMPL ETE BLOOD COUNT MCV 92 fL 80-100 normal Not Available [facility] [address] [place] [address], [address], 04/30/2022 07:05:32 04/30/20 22 04/30/2022 COMPL ETE BLOOD COUNT MCH 32 pg 26-35 normal Not Available [facility] [address] [place] [address], [address], 04/30/2022 07:05:32 04/30/20 22 04/30/2022 COMPL ETE BLOOD COUNT MCHC 34 g/dL 32-36 normal Not Available [facility] [address] [place] [address], [address], 04/30/2022 07:05:32 04/30/20 22 04/30/2022 COMPL ETE BLOOD COUNT RDW 13.3 % 11.0-1 5.0 normal Not Available [facility] [address] [place] [address], [address], 04/30/2022 07:05:32 04/30/20 22 04/30/2022 COMPL ETE BLOOD COUNT MPV 8.6 fL 6.2-10 .5 normal Not Available [facility] [address] [place] [address], [address], 04/30/2022 07:05:32 04/30/20 22 04/30/2022 COMPL ETE BLOOD COUNT platelet count 207 K/uL 130-40 0 normal Not Available [facility] [address] [place] [address], [address], 04/30/2022 07:05:32 04/30/20 22 04/30/2022 COMPL ETE BLOOD COUNT neutrophil,a bsolute 4.5 K/uL 1.6-8. 4 normal Not Available [facility] [address] [place] [address], [address], 04/30/2022 07:05:32 04/30/20 22 04/30/2022 COMPL ETE BLOOD COUNT lymphocyte,a bsolute 2.3 K/uL 0.4-5. 1 normal Not Available [facility] [address] [place] [address], [address], 04/30/2022 07:05:32 04/30/20 22 04/30/2022 COMPL ETE BLOOD COUNT monocyte,abs olute 0.8 K/uL 0.0-1. 2 normal Not Available [facility] [address] [place] [address], [address], 04/30/2022 07:05:32 04/30/20 22 04/30/2022 COMPL ETE BLOOD COUNT eosinophil,a bsolute 0.3 K/uL 0.0-0. 8 normal Not Available [facility] [address] [place] [address], [address], 04/30/2022 07:05:32 04/30/20 22 04/30/2022 COMPL ETE BLOOD COUNT basophil,abs olute 0.1 K/uL 0.0-0. 3 normal Not Available [facility] [address] [place] [address], [address], 04/30/2022 07:05:32 04/30/20 22 04/30/2022 COMPL ETE BLOOD COUNT % neutrophils 56.2 % 42.0-7 8.0 normal Not Available [facility] [address] [place] [address], [address], 04/30/2022 07:05:32 04/30/20 22 04/30/2022 COMPL ETE BLOOD COUNT % lymphocytes 28.4 % 11.0-4 7.0 normal Not Available [facility] [address] [place] [address], [address], 04/30/2022 07:05:32 04/30/20 22 04/30/2022 COMPL ETE BLOOD COUNT % monocytes 10.6 % 0.0-11 .0 normal Not Available [facility] [address] [place] [address], [address], 04/30/2022 07:05:32 04/30/20 22 04/30/2022 COMPL ETE BLOOD COUNT % eosinophils 3.8 % 0.0-7. 0 normal Not Available [facility] [address] [place] [address], [address], 04/30/2022 07:05:32 04/30/20 22 04/30/2022 COMPL ETE BLOOD COUNT % basophils 1.0 % 0.0-3. 0 normal Not Available [facility] [address] [place] [address], [address], 04/30/2022 07:05:32 04/30/20 22 04/30/2022 COMPL ETE BLOOD COUNT nucleated red cells 0.1 % 0.0-0. 9 normal Not Available [facility] [address] [place] [address], [address], 04/30/2022 07:05:32 04/30/20 22 04/30/2022 COMPL ETE BLOOD COUNT nucleated RBCs, absolute 0.01 K/uL not estab. normal Not Available [facility] [address] [place] [address], [address], 04/30/2022 07:05:32 04/30/20 22 04/30/2022 BASIC METAB OLIC PANEL glucose 107 mg/dL 74-100 high Not Available [facility] [address] [place] [address], [address], 04/30/2022 08:02:24 04/30/20 22 04/30/2022 BASIC METAB OLIC PANEL blood urea nitrogen 15 mg/dL 6-20 normal Not Available [facility] [address] [place] [address], [address], 04/30/2022 08:02:24 04/30/20 22 04/30/2022 BASIC METAB OLIC PANEL creatinine 1.13 mg/dL 0.70-1 .28 normal Not Available [facility] [address] [place] [address], [address], 04/30/2022 08:02:24 04/30/20 22 04/30/2022 BASIC METAB OLIC PANEL BUN/creatini ne ratio 13 (calc ) 10-20 normal Not Available [facility] [address] [place] [address], [address], 04/30/2022 08:02:24 04/30/20 22 04/30/2022 BASIC METAB OLIC PANEL sodium 140 mmol/ L 136-14 5 normal Not Available [facility] [address] [place] [address], [address], 04/30/2022 08:02:24 04/30/20 22 04/30/2022 BASIC METAB OLIC PANEL potassium 4.5 mmol/ L 3.4-5. 0 normal Not Available [facility] [address] [place] [address], [address], 04/30/2022 08:02:24 04/30/20 22 04/30/2022 BASIC METAB OLIC PANEL chloride 105 mmol/ L 98-107 normal Not Available [facility] [address] [place] [address], [address], 04/30/2022 08:02:24 04/30/20 22 04/30/2022 BASIC METAB OLIC PANEL carbon dioxide 25 mmol/ L 22-31 normal Not Available [facility] [address] [place] [address], [address], 04/30/2022 08:02:24 04/30/20 22 04/30/2022 BASIC METAB OLIC PANEL anion gap 10 (calc ) 7-25 normal Not Available [facility] [address] [place], [address], 04/30/2022 08:02:24 04/30/20 22 04/30/2022 BASIC METAB OLIC PANEL calcium 9.2 mg/dL 8.6-10 .2 normal Not Available [facility] [address] [place], [address], 04/30/2022 08:02:24 04/30/20 22 04/30/2022 BASIC METAB OLIC PANEL GFR 78 >= 60 normal NOT E New calcu latio n for GFR (CKD- EPI 2020) is formu lated witho ut race adjus tment facto rs at the recom menda tion of the Natio jovany Thompson y Found ation and Ameri can Socie ty of Nephr ology . This calcu latio n has not been valid ated in pregn ant women . For pedia chris bardales nts refer to https ://tavon rivero.toshia rg/pr jameess ional s/KDO QI/gf r_cal culat orPed Not Available [facility] [address] [place], [address], 04/30/2022 08:02:24 04/30/20 22 04/30/2022 SURGI SARAH surgical SEE BELOW Depar tment of Patho logy Surgi sarah Patho logy Repor t NAME: JOON JENSEN PARAG PATH. :SS-2 2-226 Copy to: Diagn osis: Lumba r disc: Inter verte bral disc mater ial with degen erati ve barron es. SOURC E OF SPECI MEN: DISC FRAGM ENTS, LUMBA R CLINI SARAH INFOR MATIO N: M 54.16 Gross Descr iptio n: Recei alessandro in forma bartolo label ed with the patie nt's name and desig nated as lumb ar disc are multi ple irreg ular fragm ents of pink cook fibro carti lagin ous soft tissu e which have aggre gate dimen sions of 1.4 x 1.2 x 0.3 cm. Entir wicho submi tted in a singl e cierae tte. JAB 04/30 03:33 PM Micro scopi c Descr iptio n: A micro scopi c exami natio n has been perfo rmed and the resul t(s) are as noted above . BAYLEE KEY M.D. Cheyenne kothari Out Date: 05/02 11:12 Page 1 of 1 Not Available [facility] [address] [place] [address], [address], 05/02/2022 11:13:32 04/10/20 22 04/10/2022 XR, lumbo sacra l spine , 2 or 3 view, bendi ng only [address] [address] Patien t Name: PARAG Castro Patien t : [birth year] Patien t 57 Orderi ng Provid er: VIKAS VALENCIA EXAM DATE: 2021 EXAM: XR LUMBAR SPINE FLEX/E XT ONLY CLINIC AL INFORM ATION: Back pain. IMAGES PROVID ED: Latera l views of the lumbar spine in flexio n and extens ion. COMPAR SHIRLEY: None. FINDIN GS: Verteb ral body height s are normal . Multil evel disc space reduct ion is seen with anteri or and latera l osteop hytes. No abnorm ality of alignm ent is seen. No instab ility is seen on flexio n or extens ion. No radiog raphic eviden ce of injury is noted. IMPRES KALLI: Degene rative change s of the lumbar spine. No instab ility. Interp reted By: Yazan Modi MD Electr onical ly Signed By: Yazan Modi MD on 04/10/20 22 5:01 PM mario [facility] [address] [place] [address], [address], 05/15/2022 14:56:20 04/11/20 22 04/10/2022 XR, hip, bilat eral, 3 or 4 view [place] [address] [facility] Maribel [facility] [place] [address] Brittney greene Name: PARAG greene : [birth year] 67 Brittney greene 57 Orderi ng Provid er: VIKAS VALENCIA EXAM DATE: 2021 EXAM: XR RAVI HIPS, 3 OR 4 VWS COMPAR SHIRLEY: None. HISTOR Y: Bilate ral hip pain. FINDIN GS: There are mild degene rative change s in both hips. There is mild margin al spurri ng. The joint space appear s normal . There are mild degene rative change s in the SI joints . There is no acute fractu re. IMPRES KALLI: 1. There are mild degene rative change s in the hips and pelvis . Interp reted By: Ivonne maciel MD Electr onical ly Signed By: Ivonne maciel MD on 04/11/20 7:50 AM [email or web address] [facility] [address] [place], [address], 05/15/2022 14:56:21 06/22/20 24 06/22/2024 XR, knee, 4 or more view [facility] Fatoumata al [address] [place] [place] [address] Brittney greene Name: PARAG greene : [birth year] 67 Brittney greene 57 Orderi ng Provid er: JÚNIOR FOSTER EXAM DATE: 2023 EXAM: XR RAVI KNEES COMPLE TE, 4 OR MORE VWS HISTOR Y: Bilate ral knee pain. COMPAR SHIRLEY: None. FINDIN GS: There are mild osteoa rthrit ic change s. There is mild margin al osteop hytic spurri ng. There is mild loss of joint space in the medial femoro tibial compar tment. There is no eviden ce of fractu re. IMPRES KALLI: 1. There are mild osteoa rthrit ic change s in both knees. Interp reted By: Ivonne maciel MD Electr onical ly Signed By: Ivonne maciel MD on 2023 3:01 PM [facility] [place] [address], [place], [address], 06/23/2024 13:37:51 Result Notes None recorded. Problems Name Problem SNOMED Code Status Onset Date Resolution Date Notes Provider Name and Address Organization Details Recorded Time Adult health examination Active 2017 ALISA Faustin MD [address] [place] [address], [address], [facility] 8 08:55:15 Obesity 293056019 Active 2017 ALISA Faustin MD [address] [place] [address], [address], [facility] 8 08:53:16 Nicotine dependence 52698698 Active 2017 ALISA Faustin MD [address] [place] [address], [address] 1, [facility] 8 08:54:21 Obstructive sleep apnea syndrome 54087872 Active 2017 ALISA Faustin MD [address] [place] [address], [address] 1, [facility] 8 08:57:35 Hypertensive disorder 54184096 Active 2017 ALISA Faustin MD [address] [place] [address], [address] 1, [facility] 8 08:01:41 Gastro-esophag eal reflux disease with esophagitis 908291788 Active 2017 ALISA Faustin MD [address] [place] [address], [address] 1, [facility] 8 09:16:16 Hyperlipidemia 09243637 Active 2017 ALISA Faustin MD [address] [place] [address], 948[address] 1, [facility] 8 08:00:32 Follow-up visit Active 2017 ALISA Faustin MD [address] [place] [address], [address]04[address] 1, [facility] 8 07:59:52 Prediabetes 499526940 Active 2017 ALISA Faustin MD [address] [place] [address], [address]75[address] 1, [facility] 8 08:01:50 Problem Notes None recorded. Procedures Surgical History Date Name Laterality Status Provider Name and Address Organization Details Recorded Time 2017 Review of Med Recs/Compl forms completed ALISA Faustin MD [address] [place] [address], [address] 1, [facility] 8 08:00:28 2017 Tobacco Cessation Counseling; 3-10 mins completed ALISA Faustin MD [address] [place] [address], 28[address] 1, [facility] 8 09:03:46 2013 Shoulder joint surgery completed Hiren Heredia [facility] 8 08:48:29 2011 Colonoscopy completed ALISA Fausitn MD [address] [place] [address], [address] 1, [facility] 8 09:06:31 esophagogastroduodenoscopy completed ALISA Faustin MD [address] [place] [address], [address] 1, [facility] 8 08:02:55 Imaging Results Imaging Date Name Status LastModified by Organiz ation Details LastModified Time 04/10/2022 XR, lumbosacral spine, 2 or 3 view, bending only completed [address] [facility] [address] [place] [address], [address], 05/15/2022 14:56:20 04/10/2022 XR, hip, bilateral, 3 or 4 view completed [address] [facility] [address] [place], [address], 05/15/2022 14:56:21 06/22/2024 XR, knee, 4 or more view completed [facility] [place] [address] , [place], [address], 06/23/2024 13:37:51 Procedure Notes None recorded. Medical Equipment None Reported. Allergies No known drug allergies Medications Name Sig Start Date Stop Date Status Note LastModified by Organization Details LastModified Time cyclobenz aprine 10 mg tablet 04/18 completed Not Available Not Available Not Available atorvasta tin 40 mg tablet TAKE 1 TABLET BY MOUTH EVERYDAY AT BEDTIME active complete d Not Available Not Available Not Available bupropion HCl SR 150 mg tablet,12 hr sustained -release Take 1 tablet twice a day by oral route for 90 days. 07/16 completed Not Available Not Available Not Available Medrol (Dany) 4 mg tablets in a dose pack Take 1 dose pk by oral route as directed . 2021 active Not Available Not Available Not Avai lable methylpre dnisolone 4 mg tablet TAKE 6 TABLETS ON DAY 1 DIRECTED ON PACKAGE AND DECREASE BY 1 TAB EACH DAY FOR A TOTAL OF 6 DAYS active complete d Not Available Not Available Not Available omeprazol e 40 mg capsule,d elayed release TAKE ONE CAPSULE BY MOUTH EVERY DAY IN THE MORNING 10/28 completed Not Available Not Available Not Available ondansetr on 8 mg disintegr ating tablet DISSOLVE 1 TABLET IN MOUTH TWICE DAILY NEEDED active complete d Not Available Not Available Not Available oxycodone -acetamin ophen 5 mg-325 mg tablet TAKE 1 TABLET BY MOUTH EVERY 4 HOURS NEEDED active complete d Not Available Not Available Not Available hydrocodo ne 7.5 mg-acetam inophen 325 mg tablet Take 1 tablet every 6 hours by oral route as needed. 2021 active complete d Not Available Not Available Not Available pantopraz ole 40 mg tablet,de layed release TAKE 1 TABLET BY MOUTH EVERY DAY active complete d Not Available Not Available Not Available lisinopri l 10 mg tablet TAKE 1 TABLET BY MOUTH EVERY DAY active Not Available Not Available No t Available losartan 50 mg-hydroc hlorothia zide 12.5 mg tablet TAKE 1 TABLET BY MOUTH EVERY DAY active Not Available Not Available No t Available Chantix 1 mg tablet TAKE 1 TABLET BY MOUTH TWICE A DAY STARTING AFTER COMPLETI NG STARTER KIT 04/18 completed Not Available Not Available Not Available Chantix Starting Month Box 0.5 mg (11)-1 mg (42) tablets in dose pack Take as directed 04/18 completed Not Available Not Available Not Available Sutab 1.479-0.1 88-0.225 gram tablet DIRECTED 2020 active complete d Not Available Not Available Not Available Vitals Date Recorded Body height Provider Name an d Address Organization Details Last Updated DateTime 06/03/2022 177.8 cm Bianca Padilla [facility] 10:28:38 Date Recorded Body height Provider Name an d Address Organization Details Last Updated DateTime 05/12/2024 177.8 cm Felicity Romero [facility] 05/12/2024 15:15:53 Date Recorded Body mass index (BMI) Body weight Heart rate Systolic blood pressure Diastolic blood pressure Provider Name and Address Organization Details Last Updated DateTime 05/12/2024 33 kg/m2 316633.2 5 g 87 /min 157 mm[Hg] 101 mm[Hg] Hiren Lomas [facility] 15:34:01 Date Recorded Body height Body mass index (BMI) Body weight Provider Name and Address Organization Details Last Updated DateTime 06/22/2024 177.8 cm 33 kg/m2 199596.25 g Noelle Michael [facility] 06/22/2024 15:03:43 Social History Question Answer Notes LastModified by Organizat ion Details LastModified Time Tobacco Smoking Status [facility] 08:47:07 What Is Your Level Of Alcohol Consumption? Moderate Information not available 04/16/2018 How Much Tobacco Do You Chew? 1/day Quit 2011 Information not available 04/16/2018 Are You Currently Employed? Yes [email or web address] Information not available 04/16/2018 Which Illicit Or Recreational Drugs Have You Used? No Information not available 04/16/2018 Live Alone Or With Others? With Others Spouse, Children Information not available 04/16/2018 What Was The Date Of Your Most Recent Tobacco Screening? 10/28/2021 [email or web address] Information not available 10/28/2021 How Many Children Do You Have? 3 Information not available 04/16/2018 At What Age Did You Start Smoking Tobacco? 19 Information not available 04/16/2018 How Much Tobacco Do You Smoke? 1 PPD Information not available 04/16/2018 Sex: Female Functional Status Question Answer Note LastModified by Organization D etails LastModified Time Are you able to care for yourself? Yes Information n ot available 04/16/2018 What is your exercise level? None Information not available 04/16/2018 Mental Status None recorded. Family History Nothing Reported Notes:Children and grandchil dren in good health Medical History Condition Response Obesity Y Reflux/GERD Y Hypertension Y Depression N High Cholesterol Y Immunizations Vaccine Type Date Status Note Provider Nam e and Address Organization Details Recorded Time Tdap 6 completed Hiren Heredia [facility] 04/16/2018 08:45:43 Hep B, adult 5 completed Hiren Heredia [facility] 04/16/2018 08:46:18 influenza, unspecified formulation 7 completed Hiren Heredia [facility] 04/16/2018 08:46:35 pneumococcal polysaccharide PPV23 3 completed ALISA HARDY MD [address] [place], [address], [facility] 07/15/2018 21:50:12 Influenza, split virus, quadrivalent, preservative 8 completed ALISA HARDY MD [address] [place], [address], [facility] 07/16/2018 08:26:00 COVID-19, mRNA, LNP-S, PF, 100 mcg/0.5mL dose or 50 mcg/0.25mL dose 1 [facility] 04/18/2021 10:36:24 COVID-19, mRNA, LNP-S, PF, 100 mcg/0.5mL dose or 50 mcg/0.25mL dose 1 completed Nish Shell [facility] 04/18/2021 10:36:28 Influenza, split virus, quadrivalent, preservative 1 completed Jose Garcia Trang [facility] 10/28/2021 14:26:44 Past Encounters Encounter ID Performer Location Encounter Start Date Encounter Closed Date Diagnosis/Indication Diagnosis SNOMED-CT Code Diagnosis ICD10 Code Diagnosis Note [id number] ALISA HARDY MD [facility] [address] [place] [address] 04/16/2018 08:38:42 04/16/2018 10:35:50 Nicotine dependence 09694336 F17.210 Failed Chantix, but success with Wellbutrin in the past. Discussed smoking cessation >3 minutes. Start Wellbutrin and f/u in 3 months Obesity 197857594 E66.8 Z68.31 BMI 31, rec weight loss Adult heal th examination 847558253 Z00.01 Annual[facility] Labs: Ordered Colonoscop y: Last ~2011 done for GI issues, several polyps Pneumovax (smoker): Declined 04/16/18 TDaP: 2016 Influenza: 2017 at work, will get at work this year at [employer] Hep A ([place]): ? 2015 at work - he will look into this Hep B: 2014 *F/u records Obstructiv e sleep apnea syndrome 01863266 G47.33 Compliant with CPAP, last eval ~5 years ago. Discussed referral to Sleep Medicine at for titration, deferred to next appt pending current work-up *Discuss referral next appt Screening for cardiovascular system disease 378200194 Z13.6 Hypertensive disorder 38 007896 I10 No prior medication s, elevated since late teens but never required medication s. 120s/*88 today, first visit. Repeat next visit Fatigue 55579997 R53.83 Poor sleep, treating for uncontroll ed GERD which wakes him frquently. Compliant with CPAP, will discuss titration at next visit. Labs pending rom today, and will f/u prior work-up done by Dr Joaquin ~5 ys ago *F/u records Gastro-eso phageal reflux disease with esophagitis [id number] K21.0 Uncontroll ed off meds, resume PPI. Prior EGD *F/u records Screening for malignant neoplasm of prostate 143451828 Z12.5 [id number] ALISA HARDY MD INTERNAL MEDICINE [address] [place] [address] 07/16/2018 07:52:55 07/22/2018 13:29:50 Hyperlipidemia 08758116 E78.2 04/2018 ascvd 9.1%. He previously required Atorvastat in (20mg dose in 2013) per record review. Resume 40mg dose Hypertensive disorder 38 665011 I10 Previously on metoprolol xl 25mg daily started for atypical chest pain by cardiology Dr Lucia Barbosa. TTE 05/06/13 EF 65-70%, mild septal hypertroph y, mild LAE, mild MR, mild TR, RVSP 40 mmHg slightly elevated. [ ] F/u BP, hold off on meds for now. Planning smoking cessation and weight loss Prediabetes 659286256 R7 3.03 Gluc 109 (04/2018) Obstructiv e sleep apnea syndrome 34183672 G47.33 CPAP. Patient declined Sleep Medicine referral 04/2018 for titration Obesity 240523744 E66.8 Z68.31 BMI 31 (04/2018) --> 32 (07/2018) and discussed increased daily activity and portion size Nicotine dependence 5629 4008 F17.210 Failed Chantix, prior success with Wellbutrin but failed after resumed 04/2018. Discussed smoking cessation classes, and he is not interested ; he is willing to try Chantix again Gastro-eso phageal reflux disease with esophagitis 717587003 K21.0 Improved on PPI [id number] ABBI RAMSEY PA-C PULMONARY [address] [facility] [facility], [address] [place] [address] 08/11/2018 10:10:36 08/12/2018 10:50:18 Obstructive sleep apnea of adult 3293274434 103 G47.33 we are trying to obtain a copy of patient's original sleep study.this will need to be repeated if we are unable to find this. Patient would be willing to consider CPAP treatment again. he does continue to have symptoms of LOYD.Epwort h sleepiness scale score is 10. He does report loud snoring on a nightly basis. [id number] MEET GRIFFIN NP INTERNAL MEDICINE [address] [place] [address] 04/18/2021 10:31:34 04/18/2021 11:22:12 Adult health examination 293349742 Z00.01 Annual: 04/18/21 Labs: Ordered Colonoscop y: Last ~2011 done for GI issues, several polyps, due for repeat Pneumovax (smoker): Declined 04/16/18 TDaP: 2016 Influenza: 2020 at work, will get at work this year at [employer] ix: discussed today COVID19: completed on 11/28/20 Hep A ([place]): ? 2015 at work - he will look into this Hep B: 2014 Hypertensive disorder 38 329265 I10 Continues to be elevated-> > Rec starting LD lisinopril as discussed Nicotine dependence 5629 4008 F17.210 Continues to smoke 1PPD->> Discussed CV risks associated w/ smoking, untreated HL, HTN and hyperglyce kathy. States he will think about it and let us know. Obstructiv e sleep apnea syndrome 16065269 G47.33 Compliant with CPAP Obesity 669729207 E66.8 Z68.31 BMI 33, rec weight loss Gastro-eso phageal reflux disease with esophagitis 007168298 K21.00 Uncontroll ed on meds per pt->> no currently takingRec starting protonix (replacing omeprazole ) Screening for malignant neoplasm of prostate 551475814 Z12.5 Hyperlipidemia 69401053 E78.5 Off atorvastat in for a while Prediabetes 695202236 R7 3.03 Gluc 109 (04/2018)ch idris A1C today Screening colonoscopy 44 0910038 Z12.11 Hx of polyps Nausea and vomiting 1693 1999 R11.2 Rec GI consult for possible repeat of EGDZofran PRN Essential hypertension 74224403 I10 [id number] MEET GRIFFIN NP INTERNAL MEDICINE [address] [place] [address] 10/28/2021 14:03:52 10/28/2021 14:57:55 Hyperlipidemia 68992181 E78.5 LDL was 161 on 04/18/21->> had been on atorvastat in prior to thisNow on medication per pt; recheck FLP and LFTs Essential hypertension 08777726 I10 controlled ; continue to monitor at home as well Gastroesop hageal reflux disease without esophagitis 029578821 K21.9 continue w/ pantoprazo le Nicotine dependence 5629 4008 F17.210 Continues to smoke 1PPD->disc ussed smoking cessation; he will let us know if he decides to pursue [id number] VIKAS VALENCIA MD [facility] [address] [place] [address] 03/13/2022 15:34:56 03/14/2022 15:57:02 Lumbar radiculopathy 627206746 M54.16 [id number] VIKAS VALENCIA MD NE[facility]G [facility] [address] [place] [address] 04/10/2022 14:28:37 04/10/2022 15:53:00 Lumbar radiculopathy 458809174 M54.16 [id number] VIKAS VALENCIA MD SURGERY SCHEDULE [address] [place] [address] 04/30/2022 06:58:42 04/30/2022 07:00:23 [id number] Georgiana Ozunaholz NE[facility]G [facility] [address] [place] [address] 05/15/2022 09:57:40 05/15/2022 11:28:26 [id number] [facility] [address] [place] [address] 06/03/2022 10:02:32 06/03/2022 16:18:17 Lumbar disc prolapse with radiculopathy 827158848 M51.16 [id number] DAYAMI ARIAS MD ENT [address] [place] [address] 05/12/2024 15:09:14 05/13/2024 04:07:19 Obstructive sleep apnea syndrome 28903906 G47.33 [facility]Sleep Medicine Physician: previously [facility] Melchor [facility]: [facility] Using 4% Rule: 70.5Centra l/Mixed Percentage : 0BMI: 33DISE: {{pending* good candidate with no concentric palatal collapse < 50% circumfren tial palatal collapse < 75% circumfren tial palatal collapse}} Has tried and failed/ret urned/does not wear anymore CPAP due to {{claustro phobia cade ps awake at night won' t stay on* skin irritation infective anxiety m ask leaks}}{{c laustropho priscila keeps awake at night won' t stay on skin irritation infective anxiety m ask leaks}}Pat ient {{has has not}} tried an oral appliance. pt has been told he cannot have a pacemaker for his job [id number] JÚNIOR FOSTER PA-C [facility] [address] [address] 06/22/2024 14:31:59 06/22/2024 15:35:57 Osteoarthritis of right knee joint 7332140088 14028 M17.11 Assessment : Bilateral knee osteoarthr itisPlan: I provided the patient reassuranc e. We can always try steroid injections into the knees in the future. Therapy can be helpful if strength becomes an issue. Follow-up as needed. Osteoarthr itis of left knee joint [id number] 01616 M17.12 Health Concerns Section Related Observation LastModified by Organization Detai ls LastModified Time None Recorded Concern Status LastModified by Organization Details LastModified Time None Recorded Advance Directives Directive None Recorded Payers Encounter Date Sequence Insurance Name Policy Number Policy Cevallos Covered Member ID Cevallos Member ID Guarantor Name 04/30/2022 1 [place] P Mell Henriquez [id number] Parag Henriquez 05/15/2022 1 [place] [id number] P Mell Henriquez [id number] Parag Henriquez 06/03/2022 1 [place] [id number] P Mell Henriquez [id number] Parag Henriquez 05/12/2024 1 [place] [id number] P Mell Henriquez [id number] Parag Carter Henriquez 06/22/2024 1 [place] [id number] P Mell Henriquez [id number] Parag Henriquez Notes Date Note Type Note Provider Name and Address Organization Details Recorded Time 04/30/2022 text/html Date of procedur e April 30, 2022. Preoperative/postopera tive diagnosis: Left L3-4 disc herniation with radiculopathy Procedure: Left L3-4 microlumbar discectomy Surgeon: Vikas Valencia MD Asst.: Hay valenzuela PA-C General endotracheal anesthesia: Blood loss: Less than 25 mL: Specimen:Disc herniation Complications: None Condition: Stable to PACU Indication for procedure: 51-year-old male with about a year of left anterior thigh radicular pain stopping around the knee. Had what appeared to be a subannular left L3-4 disc herniation with L4 root compression. Failed conservative treatment. I thought he was a candidate for the above-mentioned procedure. He elected to proceed. Indications risks and benefits were explained in the office. I'm with the patient and prior to the operation today and went over everything again today. I went over postoperative instructions. I answered all the questions. Consent was signed for surgery. I confirm that he has left lower extremity pain. Description of procedure: After informed consent was obtained the patient was brought to the operating room. General endotracheal anesthesia was induced routinely. He was carefully turned prone on the operating room table to torso resting on laminectomy rolls. The arms are abducted and flexed. All pressure points were padded and protected and he was secured to the bed with straps. Hair was clipped from the back. Lateral fluoroscopy was Nicole midline incision overlying the L3-4 disc space. It was about an inch long. The back was prepped and draped usual fashion. Prophylactic antibiotic given. The incision was opened with a scalpel and Bovie cautery was used to dissect down to the fascia. A subperiosteal dissection was performed exposing the L3 lamina. At the infra aspect replaced a [place]. We took an image to confirm we're just at the level of the L3-4 disc space. Daniel retractors were used to hold the wound open transversely. The microscope was brought in. A hemilaminotomy was started at the inferior aspect of the left L4 lamina and carried superiorly to the free end of the ligamentum flavum. The pars interarticularis was defined and was not crossed are violated. We entered very small amount into the facet joint and capsule. The ligamentum flavum was retracted inferiorly and laterally and resected with 2 and 3 mm Kerrison punches. We will able to work to the edge of the thecal sac and the shoulder of the L4 nerve root. Just deep to this was a boggy subannular disc protrusion that was adherent to the ventral aspect of the thecal sac and nerve root. I used a small ball probe to gently dissect this free and then incised the annulus longitudinally and entered the subannular space and removed a number of sizable and focally localized disc fragments. I entered the disc space proper it's been a great deal time here to try to remove any loose disc material to prevent recurrent herniation. All these maneuvers rendered and nerve root nicely free. A ball probe was easily advanced out the foramen of L4 the L3 foramen was open the nerve root looked nice and relaxed. Hip epidural hemostasis was obtained with bipolar cautery throughout bone edges were waxed is no indication CSF leakage. Retractors were removed muscular hemostasis was complete the fascia was closed a running Vicryl suture. Dmitriy's layer and dermis were closed with therapy back procedures and skin was closed with scott. Dressing was applied and the patient went to the recovery room in good condition. VIKAS VALENCIA [place], [address], [facility] 04/30/2022 09:49:53 06/03/2022 text/html Status post left L3-4 microlumbar discectomy which I performed on April 30, 2022. He is doing really well. Severe pain is resolved. He has little numbness in the anterolateral thigh. This is improving. His confirms is doing well. He wants to go back to work next week. 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 VIKAS VALENCIA [place] [facility] [place], [address], [facility] 06/03/2022 11:18:54 05/12/2024 text/html Chief Complaint: Obstructive sleep apneaTimin+ yearsDuration: constantLocation:Sever ity: moderateQuality:Contex t: Hx of nasal FX repair, no hx head/neck surgeryModifying Factors: sleep study at [facility] 08/30/13, cannot tolerate CPAP - has tried multiple masks and cannot keep it on - could not tell a difference in sleep quality with wearing it vs not wearing itAssoc signs and symptoms: poor sleep quality, snoring, daytime sleepiness, fatigue, frequent napping, no dysphagia/odynophagia DAYAMI ARIAS MD [address] [place], [address], [facility] 05/12/2024 18:28:25 06/22/2024 text/html WHAT: {{Right Left Bilater al*}} {{Knee* Ankle Hip T high Lower Leg Shoulder Elbow Wrist/Hand}}.WHEN:1 yearsHOW: over time, works on [employer]:Pain is {{constant intermitte nt*}} {{sharp pain* dull ache throbbing}} in nature.The patient {{has does not have*}} numbness or tinglingThey {{have* do not have}} popping and clickingThey {{are are not*}} able to sleep comfortably with this injury.Their pain is made better with {{resting the limb* moving the affected limb}}Their pain is exacerbated by {{bearing weight on the affected limb putting weight on and moving the affected limb nothing putting weight on and moving the affected limb, bending. #}}Overall, the patient would say that their pain {{is is not*}} well-controlled at this time PAIN: {{0 1 2 3 4 5 6* 7 8 9 10}} /10X-RAY: {{LC* We have disc Patient has disc No Disc}}MRI: {{LC We have disc Patient has disc No Disc no#}}PT: noINJECTION:no JÚNIOR FOSTER PA-C [address] [place], [address], [facility] 06/22/2024 16:56:05
[2024-11-21 10:05] LABS: Bilirubin,Unconjugated 0.9 mg/dL (0.0-1.1)
[2024-11-21 10:06] LABS: Alanine Aminotransferase 22 U/L (12-78); Alkaline Phosphatase 63 U/L (38-126); Aspartate Amino Transferase 25 U/L (17-59); Bilirubin,Direct 0.2 mg/dl (0.0-0.4); Bilirubin,Indirect 0.9 mg/dL (0.0-0.9); Bilirubin,Total 1.1 mg/dl (0.2-1.3); Chol/HDL Ratio 3.1 (1-3.5); Cholesterol 182 mg/dl (140-200); HDL Cholesterol 59 mg/dl (40-60); Total Protein,Serum 7.1 g/dl (6.3-8.2); Triglycerides 112 mg/dl (30-150); VLDL Cholesterol 22 mg/dL (0-40)
[2024-11-21 10:17] LABS: Direct LDL Cholesterol 100.57 mg/dL (100-129)
== END 2024-11-21 23:59 | disposition home or self-care (01) ==
PROVIDERS: PCP Emergency Medicine; Visit Provider Physician Assistant
DX: E78.2 Mixed hyperlipidemia (principal); I10 Essential (primary) hypertension
CPT/HCPCS: 36415; 80061; 80076

== ENCOUNTER 2025-07-17 09:05 | Outpatient (CLI) | payer BC, SELFPAY ==
--- OUTSIDE RECORDS SUMMARY | 2025-06-09 05:52 | XMS_ITS | Continuity of Care Document ---
Author Organization [facility] Phone Care Team Providers Care Patient Care Coordinator Name Role Phone DAYAMI SCHAEFFER Admitting DAYAMI SCHAEFFER Primary Attending ASA LYONS Primary Care ALLERGIES AND ADVERSE REACTIONS ALLERGIES AND ADVERSE REACTIONS Code System Allergy Substance Adverse Reaction Date Reaction (Severity) Comment Status Reported By Updated By No Known Allergies [id number] on June 02, 2025 5:42:17 PM UTC RESULTS Patient: YADI RUSSO Date of : 1970 5 LABORATORY RESULTS ORDER 100: CBC NO DIFF HEMOG JOHNNY (LOINC: 94518-3) ORDER DATE: June 07, 2025 3:25:00 PM UTC Specimen Source: EDTA Specimen Type: Blood specime n with EDTA PERFORMING LAB: [address] [id number] Result Comment: Final Result Date: June 07, 2025 5:41:00 PM UTC (TECH: KAC) LOINC TEST FLAG RESULT REFERENCE RANGE UPDA ТАТЬЯНА BY 6690-2 Leukocytes [#/volume ] in Blood by Automated count N 6.7 K/ul 4.0 K/ul - 10.5 K/ul June 07, 2025 5:41:00 PM UTC (TECH: KAC) 789-8 Erythrocytes [#/volume] in Blood by Automated count L 4.5 M/mm3 4.7 M/mm3 - 6.1 M/mm3 June 07, 2025 5:41:00 PM UTC (TECH: KAC) 718-7 Hemoglobin [Mass/volume] in Blood N 14.0 gm/dl 13.5 gm/dl - 18.0 gm/dl June 07, 2025 5:41:00 PM UTC (TECH: KAC) 28354-9 Hematocrit [Volume Fraction] of Blood L 40.9 % 42.0 % - 52.0 % June 07, 2025 5:41:00 PM UTC (TECH: KAC) 787-2 Erythrocyte mean corpuscular volume [Entitic volume] by Automated count N 90.3 fl 78 fl - 100 fl June 07, 2025 5:41:00 PM UTC (TECH: KAC) 785-6 Erythrocyte mean corpuscular hemoglobin [Entitic mass] by Automated count N 30.9 pg 27 pg - 31 pg June 07, 2025 5:41:00 PM UTC (TECH: KAC) 786-4 Erythrocyte mean corpuscular hemoglobin concentration [Mass/volume] by Automated count N 34.2 g/dl 32 g/dl - 36 g/dl June 07, 2025 5:41:00 PM UTC (TECH: KAC) 40961-1 Erythrocyte distribution width [Ratio] N 12.1 % 11.5 % - 14.0 % June 07, 2025 5:41:00 PM UTC (TECH: KAC) 777-3 Platelets [#/volume] in Blood by Automated count N 220 K/ul 150 K/ul - 450 K/ul June 07, 2025 5:41:00 PM UTC (TECH: KAC) 58200-7 Platelet mean volume [Entitic volume] in Blood by Automated count H 11.2 fl 6 fl - 9.5 fl June 07, 2025 5:41:00 PM UTC (TECH: KAC) ORDER 200: HEMOGLOBIN A1C (L OINC: 4548-4) ORDER DATE: June 07, 2025 3:25:00 PM UTC Specimen Source: WHOLE BLOOD Specimen Type: Whole blood s ample PERFORMING LAB: [address] [id number] Result Comment: Final Result Date: June 07, 2025 6:03:00 PM UTC (TECH: ARR) LOINC TEST FLAG RESULT REFERENCE RANGE UPDA ТАТЬЯНА BY 4548-4 Hemoglobin A1c/Hemoglobin.total in Blood N 5.6 % 3.8 % - 5.6 % June 07, 2025 6:03:00 PM UTC (TECH: ARR) LABORATORY NARRATIVE RESULTS Information is not available RADIOLOGY RESULTS Information is not available PATHOLOGY NARRATIVE RESULTS Information is not available MICROBIOLOGY RESULTS No Micro Labs/Results Exist for Patient BLOOD ADMIN RESULTS Information is not available MEDICATIONS HOME MEDICATIONS Status RXNORM NDC Medication Dose Route Frequency Dates Comments Reported By Updated By Drug Treatment Unknown DISCHARGE MEDICATIONS Status RXNORM NDC Medication Dose Route Frequency Dates Dis pense Data Comments Physician Updated By No Discharge Medication Info rmation Available INPATIENT MEDICATIONS Status RXNORM NDC Medication Dose Route Frequency Rat e Quantity Dates Indication Dispense Data Comments Physician Updated By No Inpatient Medication Info rmation Available SOCIAL HISTORY SOCIAL HISTORY - Smoking Status SNOMED-CT Social History Element Description Effective Dates Offered Cessation Comment Updated By [id number] Historical Tobacco smoking status Former Smoker vapes [id number] on June 02, 2025 5:45:34 PM [facility] SOCIAL HISTORY - Gender Sex: Male SOCIAL HISTORY - Status : status i nformation is not available Intention in Next Year: intention information is not available SOCIAL HISTORY - Assessments Code System Description Status Date Value of Assessment Updated By Comment Assessment Information is no t available SOCIAL HISTORY - Robinson Affiliation Robinson information is not av ailable SOCIAL HISTORY - Legal Sex Legal Sex information is not available SOCIAL HISTORY - Sexual Behavior Sexual Orientation Gender Identity SNOMED-CT Description SNO MED -CT Description Activity Level No of Partners Partner Type UpdatedBy Information is not available SOCIAL HISTORY - Occupation Occupation information is no t available HEALTH CONCERNS Problems Concern Status Health Concern problem infor mation not available. Smoking Status Status Years Used Consumed packs p er day Health Concern smoking histo ry information not available. Family History Concern Status Health Concern family histor y information not available. ENCOUNTERS ENCOUNTER INFORMATION Reason for Visit PRE OP Admission June 07, 2025 3:06:[address] [address] Discharge June 07, 2025 3:06:00 PM [facility] DISCHARGED TO HOME OR SELF CARE ENCOUNTER DIAGNOSES Notes information is not gail ilable. Code System Diagnosis Onset Date Diagnosis information is not available. ABSTRACT DIAGNOSES Code System Diagnosis Updated By Abatement Date Z818 ICD10 ENCOUNTER FOR OT HER PREPROCEDURAL EXAMINATION [id number] on June 09, 2025 10:52:10 AM [facility] M17.11 ICD10 UNILATERAL PRIMA RY OSTEOARTHRITIS, RIGHT KNEE [id number] on June 09, 2025 10:52:10 AM [facility] Z01.818 ICD10 ENCOUNTER FOR OT HER PREPROCEDURAL EXAMINATION [id number] on June 09, 2025 10:52:10 AM [facility] M17.11 ICD10 UNILATERAL PRIMA RY OSTEOARTHRITIS, RIGHT KNEE [id number] on June 09, 2025 10:52:10 AM [facility] CARE TEAM Care Patient Care Coordinator Role DAYAMI SCHAEFFER Admitting DAYAMI SCHAEFFER Primary Attending ASA LYONS Primary Care CARE TEAM CARE quality assurance director Role on Team Location Telecom Status Start Date End Kirill e Updated By SERENA BRAY PCP normal June 07, 2025 4:00:00 AM [facility] June 07, 2025 3:06:00 PM [facility] [id number] on June 07, 2025 3:07:42 PM [facility] MAKSIM NOLASCO Attending normal June 07, 2025 4:00:00 AM [facility] June 07, 2025 3:06:00 PM [facility] [id number] on June 07, 2025 3:07:42 PM [facility] MAKSIM ONLASCO Admitting normal June 07, 2025 4:00:00 AM [facility] June 07, 2025 3:06:00 PM [facility] [id number] on June 07, 2025 3:07:42 PM [facility]
--- OUTSIDE RECORDS SUMMARY | 2025-06-14 10:36 | XMS_ITS | Continuity of Care Document ---
Author Organization [facility] Phone Care Team Providers Care Sanitation Superintendent Name Role Phone DAYAMI SCHAEFFER Admitting DAYAMI SCHAEFFER Primary Attending NETO REBOLLEDO Surgeon Unavailable ASA LYONS Primary Care DAYAMI SCHAEFFER Surgeon ALLERGIES AND ADVERSE REACTIONS ALLERGIES AND ADVERSE REACTIONS Code System Allergy Substance Adverse Reaction Date Reaction (Severity) Comment Status Reported By Updated By No Known Allergies [id number] on June 02, 2025 5:42:17 PM UTC ASSESSMENTS Arthritis of left knee joint ; PROBLEMS PATIENT PROBLEMS Code Description/Comments Category Status Upda татьяна By [id number] Arthritis of left knee joint a ctive [id number] on June 12, 2025 12:17:56 PM UTC RESULTS Patient: YADI RUSSO Date of : 1970 5 LABORATORY RESULTS ORDER 700: TYPE/SCREEN (FRANSISCOIN C: 59325-2) ORDER DATE: June 11, 2025 6:35:00 PM UTC Specimen Source: Specimen Type: PERFORMING LAB: [address] [id number] Result Comment: Final Result Date: June 11, 2025 6:35:00 PM UTC (TECH: scott) LOINC TEST FLAG RESULT REFERENCE RANGE UP[place] ТАТЬЯ[place] 138[address]-8 History of Procedure N Completed June 11, 2025 6:35:00 PM UTC (TECH: HL7) 76728-7 ABO and Rh group fuchs el - Blood N B POSITIVE June 11, 2025 6:35:00 PM UTC (TECH: HL7) 890-4 Blood group antibody screen [Presence] in Serum or Plasma N NEGATIVE June 11, 2025 6:35:00 PM UTC (TECH: HL7) 53531-2 PROMIS item bank - cognitive function - version 2.0 N Completed June 11, 2025 6:35:00 PM UTC (TECH: scott) LABORATORY NARRATIVE RESULTS Information is not available RADIOLOGY RESULTS ORDER 1100: KNEE 1 TO 2V LT (LOINC: 60487-9) ORDER DATE: June 12, 2025 7:59:00 PM UTC PERFORMING LAB: [address] [id number] Final Result Date: June 12, 2025 9:54:37 PM UTC [facility] [address] [place] [id number] Name: RAFAELA GRULLON Exam Date: 06/12/2025 : 1970 Age 54 years Gender: M Physician: DAYAMI SCHAEFFER Facility: [facility] Facility HSV: Outpatient Exam: KNEE 1 TO 2V LT EXAMINATION: XR LEFT KNEE CLINICAL INDICATION: Male, 54 years old. s/p L TKA TECHNIQUE: 2 view radiograph of the left knee were obtained. [id number]. COMPARISON: No prior exam. FINDINGS: Anatomically aligned recent left TKA with no abnormal bone or soft tissue findings. IMPRESSION: Left TKA with no unexpected findings. Electronically signed by: Rolando Morales MD 06/12/2025 04:54 PM [facility] Dictated By: ROLANDO MORALES Transcribed By: Transcribed On: 06/12/2025 4:54 PM Electronically signed by: ROLANDO MORALES 06/12/2025 Thank you for referring RAFAELA GRULLON to [facility]. Legally authenticated by CARMEN SANTILLAN 2025-06-12 16:54:37 PATHOLOGY NARRATIVE RESULTS Information is not available MICROBIOLOGY RESULTS No Micro Labs/Results Exist for Patient BLOOD ADMIN RESULTS Information is not available TREATMENT PLAN DISCHARGE MEDICATIONS Status RXNORM Medication Dose Route Frequency Dates Comments U pdated By Continued [id number] Omeprazole Oral Capsule Delayed Release 40 MG 40 MG ORAL ONCE DAILY Prescribe d: June 12, 2025 8:01:50 PM UTC [id number] on June 12, 2025 8:01:50 PM [facility] Continued [id number] Prasugrel HCl Oral Tablet 10 MG 10 MG ORAL ONCE DAILY Prescribe d: June 12, 2025 8:01:50 PM [facility] [id number] on June 12, 2025 8:01:50 PM [facility] Continued [id number] Irbesartan Oral Tablet 150 MG 150 MG ORAL ONCE DAILY Prescribe d: June 12, 2025 8:01:50 PM [id number] on June 12, 2025 8:01:50 PM [facility] Continued 270385 Metoprolol Succinate ER Oral Tablet Extended Release 24 Hour 50 MG 50 MG ORAL ONCE DAILY Prescribe d: June 12, 2025 8:01:50 PM [id number] on June 12, 2025 8:01:50 PM [facility] Continued [id number] Sennosides-Doc usate Sodium Oral Tablet 8.6-50 MG 1 TAB ORAL TWICE A DAY NEEDED Prescribe d: June 12, 2025 8:01:50 PM [id number] on June 12, 2025 8:01:50 PM [facility] Continued 886740 Aspirin Buf(CaCarb-MgC arb-MgO) Oral Tablet 325 MG 1 TAB ORAL ONCE DAILY Prescribe d: June 12, 2025 8:01:50 PM [id number] on June 12, 2025 8:01:50 PM [facility] Continued [id number] Atorvastatin Calcium Oral Tablet 80 MG 80 MG ORAL ONCE DAILY Prescribe d: June 12, 2025 8:01:50 PM [facility] [id number] on June 12, 2025 8:01:50 PM [facility] Continued [id number] Percocet Oral Tablet 5-325 MG 1 TAB ORAL EVERY FOUR HOURS NEEDED Prescribe d: June 12, 2025 8:01:50 PM [facility] [id number] on June 12, 2025 8:01:50 PM [facility] PATIENT OPEN ORDERS Code System Descriptio n Frequency Occurrenc es Priority Category Start Date Ordering Physician Updated By Patient open order informati on is not available. SCHEDULED PROCEDURES Code System Description Status Scheduled Date Upd ated By [id number] SNOMED-CT TOTAL KNEE REPLACEMENT scheduled June 12, 2025 1:31:28 PM [facility] [id number] on June 02, 2025 2:11:40 PM [facility] MEDICATIONS HOME MEDICATIONS Status RXNORM [facility] Medication Dose Route Frequency Dates Comments Reported By Updated By Active 595327 53098 32241 0 Atorvastatin Calcium Oral Tablet 80 MG 80.0 MG ORAL DAILY Last Dose: [facility] 2024 1:00:0 0 PM UTC [id number] on June 12, 2025 2:31:59 PM UTC Active 794610 98059 37854 3 Prasugrel HCl Oral Tablet 10 MG 10.0 MG ORAL DAILY Last Dose: [facility] 2024 4:00:0 0 PM UTC [id number] on June 12, 2025 2:31:44 PM UTC Active 909019 51807 42719 7 Metoprolol Succinate ER Oral Tablet Extended Release 24 Hour 50 MG 50.0 MG ORAL DAILY Last Dose: [facility] 2024 1:00:0 0 PM UTC [id number] on June 12, 2025 2:30:44 PM UTC Active 92408 71972 0 Aspirin Adult Low Dose Oral Tablet Delayed Release 81 MG 81.0 MG ORAL DAILY Last Dose: [facility] 2024 4:00:0 0 PM UTC [id number] on June 12, 2025 2:29:43 PM UTC Active 939039 71044 04275 0 Omeprazole Oral Capsule Delayed Release 40 MG 40.0 MG ORAL DAILY Last Dose: [facility] 2024 1:00:0 0 PM UTC [id number] on June 12, 2025 2:30:55 PM UTC Active 574124 18082 91274 0 Irbesartan Oral Tablet 150 MG 150.0 MG ORAL DAILY Last Dose: [facility] 2024 1:00:0 0 AM UTC [id number] on June 12, 2025 2:30:27 PM UTC Active 869773 83422 52625 0 Aspirin Buf(CaCarb-M gCarb-MgO) Oral Tablet 325 MG 1.0 TAB ORAL DAILY Last Dose: [id number] on June 12, 2025 8:00:22 PM UTC Active 4826654 19043 94046 0 Percocet Oral Tablet 5-325 MG 1.0 TAB ORAL Q4HPRN Last Dose: [id number] on June 12, 2025 8:00:41 PM UTC Active 665294 66833 78904 2 Sennosides-D ocusate Sodium Oral Tablet 8.6-50 MG 1.0 TAB ORAL BIDPRN Last Dose: [id number] on June 12, 2025 8:01:02 PM [facility] DISCHARGE MEDICATIONS Status RXNORM [facility] Medication Dose Route Frequency Dates Dis pense Data Comments Physician Updated By [facility] ed [id number] 9363 3445 792 Omeprazole Oral Capsule Delayed Release 40 MG 40.0 MG ORAL ONCE DAILY Prescr ibed: [facility] 2024 8:01:5 0 PM [facility] [id number] on June 12, 2025 8:01:50 PM [facility] Continu ed 134649 8896 8518 693 Prasugrel HCl Oral Tablet 10 MG 10.0 MG ORAL ONCE DAILY Prescr ibed: [facility] 2024 8:01:5 0 PM [facility] [id number] on June 12, 2025 8:01:50 PM [facility] Continu ed 354384 7788 2073 030 Irbesartan Oral Tablet 150 MG 150.0 MG ORAL ONCE DAILY Prescr ibed: [facility] 2024 8:01:5 0 PM [facility] [id number] on June 12, 2025 8:01:50 PM [facility] Continu ed [id number] 2323 8459 677 Metoprolol Succinate ER Oral Tablet Extended Release 24 Hour 50 MG 50.0 MG ORAL ONCE DAILY Prescr ibed: [facility] 2024 8:01:5 0 PM [facility] MAKSIM Watson PHY [id number] on June 12, 2025 8:01:50 PM [facility] Continu ed [id number] 3330 0742 102 Sennosides- Docusate Sodium Oral Tablet 8.6-50 MG 1.0 TAB ORAL TWICE A DAY NEEDED Prescr ibed: [facility] 2024 8:01:5 0 PM [facility] MAKSIM Watson PHY [id number] on June 12, 2025 8:01:50 PM [facility] Continu ed [id number] 4610 280 Aspirin Buf(CaCarb- MgCarb-MgO) Oral Tablet 325 MG 1.0 TAB ORAL ONCE DAILY Prescr ibed: [facility] 2024 8:01:5 0 PM [facility] PH[facility] [id number] on June 12, 2025 8:01:50 PM [facility] Continu ed 459435 5879 4083 090 Atorvastati n Calcium Oral Tablet 80 MG 80.0 MG ORAL ONCE DAILY Prescr ibed: [facility] 2024 8:01:5 0 PM [facility] [id number] on June 12, 2025 8:01:50 PM [place] Continu ed [id number] 4783 1062 370 Percocet Oral Tablet 5-325 MG 1.0 TAB ORAL EVERY FOUR HOURS NEEDED Prescr ibed: [facility] 2024 8:01:5 0 PM [facility] [id number] on June 12, 2025 8:01:50 PM [place] INPATIENT MEDICATIONS Status RXNORM [facility] Medication Dose Route Frequency Rat e Quantity Dates Indication Dispense Data Comments Physician Updated By Discont inued 151527 3700 8015 704 LACTATED RINGERS SOLN 1000. 0 ML INTRAV ENOUS ONE TIME ONLY (PACU) 25.0 ML/HR Start: [facility] 2024 6:17:0 0 PM UTC End: [facility] 2024 8:01:5 0 PM [place] DORIS Loomis [id number] on June 13, 2025 5:25:00 AM UT Discont inued 3776291 0040 9117 630 meperidine (DEMEROL) 25 MG/ML SOLN 12.5 MG INTRAV ENOUS NEEDED (PACU) Start: [facility] 2024 6:17:0 0 PM UTC End: [facility] 2024 8:01:5 0 PM [place] DORIS Loomis [id number] on June 13, 2025 5:25:00 AM UT Discont inued 8672475 0040 9117 630 meperidine (DEMEROL) 25 MG/ML SOLN 25.0 MG INTRAV ENOUS NEEDED (PACU) Start: [facility] 2024 6:17:0 0 PM UTC End: [facility] 2024 8:01:5 0 PM [place] DORIS Loomis [id number] on June 13, 2025 5:25:00 AM UT Discont inued 3112715 0064 1624 725 fentaNYL (SUBLIMAZE) VIAL 50 MGC/ML SOLN 25.0 MCG INTRAV ENOUS EVERY 5 MINUTES NEEDED (PACU) Start: [facility] 2024 6:17:0 0 PM UTC End: [facility] 2024 8:01:5 0 PM UTC BHAVANIAlma Loomis [id number] on June 13, 2025 5:25:00 AM UTC Discont inued 2713439 0064 1624 725 fentaNYL (SUBLIMAZE) VIAL 50 MGC/ML SOLN 50.0 MCG INTRAV ENOUS EVERY 5 MINUTES NEEDED (PACU) Start: [facility] 2024 6:17:0 0 PM UTC End: [facility] 2024 8:01:5 0 PM UTC DORIS ORLIN Loomis [id number] on June 13, 2025 5:25:00 AM UTC Discont inued 3398282 1232 9426 401 HYDROmorpho ne (DILAUDID) 0.5 MG/0.5ML SOLN 0.5 MG INTRAV ENOUS EVERY 10 MINUTES NEEDED (PACU) Start: [facility] 2024 6:17:0 0 PM UTC End: [facility] 2024 8:01:5 0 PM UTC DANEAlma ORLIN Loomis [id number] on June 13, 2025 5:25:00 AM UTC Discont inued 7202174 5543 9128 331 HYDROmorpho ne (DILAUDID) 1 MG/ML SOLN 1.0 MG INTRAV ENOUS EVERY 10 MINUTES NEEDED (PACU) Start: [facility] 2024 6:17:0 0 PM UTC End: [facility] 2024 8:01:5 0 PM UTC BHAVANIAlma Loomis [id number] on June 13, 2025 5:25:00 AM UTC Discont inued 9763346 5625 5613 000 ondansetron (ZOFRAN) INJ 4 MG/2 ML SOLN 4.0 MG INTRAV ENOUS NEEDED (PACU) Start: [facility] 2024 6:17:0 0 PM UTC End: [facility] 2024 8:01:5 0 PM UTC BHAVANIAlma Loomis [id number] on June 13, 2025 5:25:00 AM UTC Discont inued 1457300 0051 7970 201 droperidol (INAPSINE) 2.5 MG/ML SOLN 0.625 MG INTRAV ENOUS NEEDED (PACU) Start: [facility] 2024 6:17:0 0 PM UTC End: er 2024 8:01:5 0 PM UTC DORIS Loomis [id number] on June 13, 2025 5:25:00 AM UTC Discont inued 3960071 1514 3041 112 midazolam (VERSED) 2 MG/2 ML SOLN 1.0 MG INTRAV ENOUS EVERY FIVE MINUTES NEEDED Start: [facility] 2024 6:17:0 0 PM UTC End: 2024 8:01:5 0 PM UTC DORIS Loomis [id number] on June 13, 2025 5:25:00 AM UTC Discont inued 4582586 2414 3041 112 midazolam (VERSED) 2 MG/2 ML SOLN 2.0 MG INTRAV ENOUS NEEDED (PACU) Start: [facility] 2024 6:17:0 0 PM UTC End: 2024 8:01:5 0 PM UTC DORIS ORLIN Vladislav [id number] on June 13, 2025 5:25:00 AM UTC Discont inued 902684 8270 8011 704 LACTATED RINGERS SOLN 1000. 0 ML IV CONTIN UOUS ONE TIME ADMINISTRA TION (UNSCHEDUL ED) 25.0 ML/HR Start: [facility] 2024 6:17:0 0 PM UTC End: 2024 2:24:4 2 PM UTC DORIS Loomis [id number] on June 12, 2025 2:24:00 PM UTC Discont inued 330273 7979 1092 825 promethazin e (PHENERGAN) 25 MG/ML SOLN 12.5 MG INTRAV ENOUS NEEDED (PACU) Start: [facility] 2024 6:17:0 0 PM UTC End: 2024 8:01:5 0 PM UTC BHAVANIAlma ORDAZ Vladislav [id number] on June 13, 2025 5:25:00 AM UTC Discont inued XXXX XXX0 011 promethazin e (PHENERGAN) 12.5 MG GEL 12.5 MG TOPICA L NEEDED (PACU) Start: [facility] 2024 6:17:0 0 PM UTC End: [facility] 2024 8:01:5 0 PM UTC DORIS Loomis [id number] on June 13, 2025 5:25:00 AM UTC Discont inued 9538624 0117 7084 001 ceFAZolin (ANCEF) 2 GM SOLR 2.0 GM INTRAV ENOUS ONE TIME ADMINISTRA TION (UNSCHEDUL ED) Start: 2024 12:17: 00 PM UTC End: [facility]2024 2:24:4 1 PM UTC MAKSIM Watson [id number] on June 12, 2025 2:24:00 PM UTC Discont inued 0090 4673 061 acetaminoph en (TYLENOL) 500 MG TABS 1000. 0 MG ORAL ONE TIME ADMINISTRA TION (UNSCHEDUL ED) Start: 2024 12:17: 00 PM UTC End: 2024 2:24:4 2 PM UTC MAKSIM Watson [id number] on June 12, 2025 2:24:00 PM UTC Discont inued 859741 8197 3716 601 celeCOXIB (CeleBREX) 200 MG CAPS 400.0 MG ORAL ONE TIME ADMINISTRA TION (UNSCHEDUL ED) Start: 2024 12:17: 00 PM UTC End: [facility]2024 2:24:4 1 PM UTC MAKSIM Watson [id number] on June 12, 2025 2:24:00 PM UTC Discont inued 396686 6386 2100 001 tranexamic acid (CYKLOKAPRO N) 1000 MG SOLN 1000. 0 MG INTRAV ENOUS ONE TIME ONLY (SCHEDULED DOSE) 300.0 ML/HR Start: 2024 12:17: 00 PM UTC End: [facility]2024 8:01:5 0 PM UTC MAKSIM Watson [id number] on June 13, 2025 5:25:00 AM UTC Discont inued 1070936 0033 8004 941 sodium chloride 0.9% SOLN 50.0 ML INTRAV ENOUS ONE TIME ONLY (SCHEDULED DOSE) 300.0 ML/HR Start: [facility] 2024 12:17: 00 PM UTC End: [facility] 2024 8:01:5 0 PM UTC MAKSIM Watson [id number] on June 13, 2025 5:25:00 AM UTC Discont inued 840373 3549 2100 001 tranexamic acid (CYKLOKAPRO N) 1000 MG SOLN 1000. 0 MG INTRAV ENOUS ONE TIME ONLY (SCHEDULED DOSE) 300.0 ML/HR Start: [facility] 2024 12:17: 00 PM UTC End: [facility] 2024 8:01:5 0 PM UTC MAKSIM Watson [id number] on June 13, 2025 5:25:00 AM UTC Discont inued 3972296 0033 8004 941 sodium chloride 0.9% SOLN 50.0 ML INTRAV ENOUS ONE TIME ONLY (SCHEDULED DOSE) 300.0 ML/HR Start: [facility] 2024 12:17: 00 PM UTC End: [facility] 2024 8:01:5 0 PM UTC DIONTALI Watson [id number] on June 13, 2025 5:25:00 AM UTC Discont inued 5347495 0165 5623 105 ceFAZolin (ANCEF) 2 GM SOLR 2.0 GM INTRAV ENOUS ONE TIME ONLY (SCHEDULED DOSE) Start: [facility] 2024 2:09:0 0 PM UTC End: [facility] 2024 2:09:0 0 PM UTC DIONTALI Watson INTERFAC ED on June 12, 2025 2:09:00 PM UTC Discont inued 7016932 0293 9909 332 PACU - fentaNYL (SUBLIMAZE) 100 MCG/2ML SOLN 100.0 MCG INTRAV ENOUS ONE TIME ONLY (SCHEDULED DOSE) Start: [facility] 2024 2:45:0 0 PM UTC End: [facility] 2024 2:45:0 0 PM UTC DIONTALI Watson INTERFAC ED on June 12, 2025 2:44:00 PM UTC Discont inued [id number] 8569 3016 905 buprenorphi ne (BUPRENEX) 0.3 MG/ML SOLN 0.3 MG INTRAV ENOUS ONE TIME ONLY (SCHEDULED DOSE) Start: [facility] 2024 2:45:0 0 PM UTC End: [facility] 2024 2:45:0 0 PM UTC [facility] INTERFAC ED on June 12, 2025 2:44:00 PM UTC Discont inued [id number] 6917 3028 635 ropivacaine (NAROPIN) 0.5% 5 MG/ML SOLN 150.0 MG EPIDUR AL ONE TIME ONLY (SCHEDULED DOSE) Start: [facility] 2024 2:45:0 0 PM UTC End: [facility] 2024 2:45:0 0 PM UTC [facility] INTERFAC ED on June 12, 2025 2:44:00 PM UTC Discont inued 5161 2568 001 ketamine (KETALAR) 20 MG/2ML SOSY 20.0 MG INTRAV ENOUS ONE TIME ONLY (SCHEDULED DOSE) Start: [facility] 2024 4:42:0 0 PM UTC End: [facility] 2024 4:42:0 0 PM UTC [facility] ED on June 12, 2025 4:40:00 PM UTC Discont inued 2068964 1342 3028 635 ropivacaine (NAROPIN) 0.5% 5 MG/ML SOLN 150.0 MG EPIDUR AL ONE TIME ONLY (SCHEDULED DOSE) Start: [facility] 2024 7:16:0 0 PM UTC End: [facility] 2024 7:16:0 0 PM UTC [facility] ED on June 12, 2025 7:15:00 PM UTC Discont inued 2843 8032 811 fentaNYL (SUBLIMAZE) SYRINGE 50 MCG/ML SOSY 50.0 MCG INTRAV ENOUS ONE TIME ONLY (SCHEDULED DOSE) Start: [facility] 2024 8:38:0 0 PM UTC End: [facility] 2024 8:38:0 0 PM UTC [facility] INTERFAC ED on June 12, 2025 8:37:00 PM UTC Discont inued 0274 0690 811 fentaNYL (SUBLIMAZE) SYRINGE 50 MCG/ML SOSY 50.0 MCG INTRAV ENOUS ONE TIME ONLY (SCHEDULED DOSE) Start: [facility] 2024 8:51:0 0 PM UTC End: [facility] 2024 8:51:0 0 PM UTC MAKSIM Watson INTERFAC ED on June 12, 2025 8:49:00 PM UTC Discont inued [id number] 4499 8010 250 PERCOCET 5-325 MG TABS 1.0 TAB ORAL ONE TIME ONLY (SCHEDULED DOSE) Start: [facility] 2024 9:13:0 0 PM UTC End: [facility] 2024 9:11:0 0 PM UTC SELENE STEPHENS [id number] on June 12, 2025 9:52:00 PM UTC Discont inued 2830814 3630 8010 250 PERCOCET 5-325 MG TABS 1.0 TAB ORAL ONE TIME ONLY (SCHEDULED DOSE) Start: 2024 9:53:0 0 PM UTC End: [facility] 2024 9:11:0 0 PM UTC MAKSIM Watson INTERFAC ED on June 12, 2025 9:51:00 PM UTC Discont inued 4651368 3994 9020 901 PROPOFOL 200 MG/20ML EMUL 200.0 MG INTRAV ENOUS ONE TIME ONLY (SCHEDULED DOSE) 8.333 MG/HR Start: 2024 6:39:0 0 PM UTC End: [facility]2024 9:11:0 0 PM UTC MAKSIM STOCK Walter [id number] on June 13, 2025 6:41:00 PM UTC Discont inued 9621045 4833 3016 505 DEXAMETHASO NE SODIUM PHOSPHATE 20.0 MG INTRAV ENOUS ONE TIME ONLY (SCHEDULED DOSE) 0.833 MG/HR Start: [facility]2024 6:39:0 0 PM UTC End: [facility] 2024 9:11:0 0 PM UTC MAKSIM STOCK Walter [id number] on June 13, 2025 6:41:00 PM UTC Discont inued [id number] 5938 4268 501 KETOROLAC TROMETHAMIN E 30 MG/M 30.0 MG ONE TIME ONLY (SCHEDULED DOSE) 1.25 MG/HR Start: [facility] 2024 6:39:0 0 PM UTC End: [facility]2024 9:11:0 0 PM UTC DIONTALI Watson [id number] on June 13, 2025 6:41:00 PM UTC Discont inued [id number] 6835 5613 000 ONDANSETRON HCL 4 MG/2ML SOLN 4.0 MG INTRAV ENOUS ONE TIME ONLY (SCHEDULED DOSE) 0.167 MG/HR Start: [facility] 2024 6:39:0 0 PM UTC End: [facility] 2024 9:11:0 0 PM UTC MAKSIM Watson [id number] on June 13, 2025 6:41:00 PM UTC Discont inued 9281548 6751 7316 701 EPHEDRINE SULFATE (PRESSORS) 5 50.0 MG INTRAV ENOUS ONE TIME ONLY (SCHEDULED DOSE) 2.083 MG/HR Start: [facility] 2024 6:39:0 0 PM UTC End: [facility] 2024 9:11:0 0 PM UTC DIONTALI Watson [id number] on June 13, 2025 6:41:00 PM UTC Discont inued 513788 2081 7460 525 GLYCOPYRROL ATE 1 MG/5ML SOLN 1.0 MG INTRAV ENOUS ONE TIME ONLY (SCHEDULED DOSE) 0.042 MG/HR Start: [facility]2024 6:39:0 0 PM UTC End: [facility]2024 9:11:0 0 PM UTC MAKSIM Watson [id number] on June 13, 2025 6:41:00 PM UTC Discont inued [id number] 0333 3020 202 LIDOCAINE HCL 2 % SOLN 4.0 ML ONE TIME ONLY (SCHEDULED DOSE) 0.167 ML/HR Start: [facility] 2024 6:40:0 0 PM UTC End: [facility]2024 9:11:0 0 PM UTC MAKSIM Watson [id number] on June 13, 2025 6:41:00 PM UTC SOCIAL HISTORY SOCIAL HISTORY - Smoking Status SNOMED-CT Social History Element Description Effective Dates Offered Cessation Comment Updated By [id number] Current Tobacco smoking status Former Smoker augielinda [id number] on June 02, 2025 5:45:34 PM UTC SOCIAL HISTORY - Gender Sex: Male SOCIAL HISTORY - Status : status i nformation is not available Intention in Next Year: intention information is not available SOCIAL HISTORY - Assessments Code System Description Status Date Value of Assessment Updated By Comment Assessment Information is no t available SOCIAL HISTORY - [place] Affiliation [place] information is not av ailable SOCIAL HISTORY - Legal Sex Legal Sex information is not available SOCIAL HISTORY - Sexual Behavior Sexual Orientation Gender Identity SNOMED-CT Description SNO MED -CT Description Activity Level No of Partners Partner Type UpdatedBy Information is not available SOCIAL HISTORY - Occupation Occupation information is no t available VITAL SIGNS PATIENT VITAL SIGNS This section displays the mo st recent value for each vital sign as of June 14, 2025 3:36:34 PM [facility] Loinc Code Vital Sign Activity Date Result Updated By 8302-2 Body height June 12, 2025 2:07:15 PM UT 177.8 cm (70.0 in) [id number] on June 12, 2025 2:07:15 PM [facility] 38019-3 Body mass index (BMI) [Ratio] June 12, 2025 2:07:15 PM UT 34.666 kg/m2 3140-1 Body Surface Area Derived From Formula June 12, 2025 2:07:15 PM UT 2.262 m2 35643-3 Body weight Measured June 12, 2025 2:07:15 PM UT 109.6 kg (242.0 lb) [id number] on June 12, 2025 2:07:15 PM [facility] PEDIATRIC GROWTH CHART - VITAL SIGNS This section displays Head C ircumference Percentile, Weight for Length Percentile and BMI Percentile Loinc Code Pediatric Measure Age (Months) Result Updat ed By No Pediatric Growth Chart Pe rcentile Information Available. HEALTH CONCERNS Problems Concern Status Health Concern problem infor mation not available. Smoking Status Status Years Used Consumed packs p er day Health Concern smoking histo ry information not available. Family History Concern Status Health Concern family histor y information not available. ENCOUNTERS ENCOUNTER INFORMATION Reason for Visit L TKA Admission June 12, 2025 1:11:[address] [id number] Discharge June 12, 2025 9:11:00 PM [facility] DISCHARGED TO HOME OR SELF CARE ENCOUNTER DIAGNOSES Notes information is not gail ilable. Code System Diagnosis Onset Date Diagnosis information is not available. ABSTRACT DIAGNOSES Code System Diagnosis Updated By Abatement Date M17.12 ICD10 UNILATERAL PRIMA RY OSTEOARTHRITIS, LEFT KNEE [id number] on June 14, 2025 3:34:44 PM UT M25.562 ICD10 PAIN IN LEFT KNEE [id number] on June 14, 2025 3:34:44 PM UT M17.12 ICD10 UNILATERAL PRIMA RY OSTEOARTHRITIS, LEFT KNEE [id number] on June 14, 2025 3:34:44 PM UT M25.562 ICD10 PAIN IN LEFT KNEE [id number] on June 14, 2025 3:34:44 PM UT I25.2 ICD10 OLD MYOCARDIAL INFARCTION AA [id number] on June 14, 2025 3:34:44 PM UT I25.10 ICD10 ATHEROSCLEROTIC HEART DISEASE OF [place] CORONARY ARTERY WITHOUT ANGINA PECTORIS [id number] on June 14, 2025 3:34:44 PM UT Z95.820 ICD10 PERIPHERAL VASCU LAR ANGIOPLASTY STATUS WITH IMPLANTS AND GRAFTS [id number] on June 14, 2025 3:34:44 PM [place] I10 ICD10 ESSENTIAL (PRIMA RY) HYPERTENSION [id number] on June 14, 2025 3:34:44 PM [place] E78.5 ICD10 HYPERLIPIDEMIA, UNSPECIFIED [id number] on June 14, 2025 3:34:44 PM [place] F17.290 ICD10 NICOTINE DEPENDE NCE, OTHER TOBACCO PRODUCT, UNCOMPLICATED [id number] on June 14, 2025 3:34:44 PM [place] G47.30 ICD10 SLEEP APNEA, UNSPECIFIED AAD [id number] on June 14, 2025 3:34:44 PM [place] K21.9 ICD10 GASTRO-ESOPHAGEA L REFLUX DISEASE WITHOUT ESOPHAGITIS [id number] on June 14, 2025 3:34:44 PM [facility] Z79.82 ICD10 BORDEREAU CLERK (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 NT) USE OF ASPIRIN [id number] on June 14, 2025 3:34:44 PM [facility] Z79.899 ICD10 OTHER BORDEREAU CLERK (CURRENT) DRUG THERAPY [id number] on June 14, 2025 3:34:44 PM [place] CARE TEAM Care Sanitation Superintendent Role DAYAMI SCHAEFFER Admitting DAYAMI SCHAEFFER Primary Attending NETO REBOLLEDO Surgeon ASA LYONS Primary Care DAYAMI [facility] DISCHARGE INSTRUCTION DISCHARGE INSTRUCTION Encounter [id number] Admit Date June 12, 2025 1:1 1:00 PM [place] Discharge Date June 12, 2025 9:1 1:00 PM [facility] PATIENT EDUCATION SUMMARY Patient/Visit Information: Patient Name: RAFAELA GRULLON Diag: Attending Caregiver: MAKSIM Watson Discharge Instruction Sheets Provided: Anesthesia, [facility] DC Instructions After BEFAST-Stroke Warning Signs Discharge Information Fall Prevention in Hospitals and in the Home [facility] - Medication Management KSO- Total Knee Arthoplasty KYNECT- HELP Medication Side Effects Suicide - Managing your Feelings Patient Instructions: Followup Appointments/Instructions: CARE TEAM CARE data assistant Role on Team Location Telecom Status Start Date End Kirill e Updated By AMAURY Williamson Surgeon normal June 12, 2025 3:10:00 PM UTC June 12, 2025 9:11:00 PM UTC [id number] on June 14, 2025 3:35:43 PM UTC MAKSIM NOLASCO Surgeon normal June 12, 2025 1:11:00 PM UTC June 12, 2025 9:11:00 PM UTC [id number] on June 14, 2025 3:35:43 PM UTC SERENA BRAY PCP normal June 07, 2025 3:11:38 PM UTC June 12, 2025 9:11:00 PM UTC [id number] on June 14, 2025 3:35:43 PM UTC UNDEFINED PROVIDER PCP normal May 29, 2025 2:51:09 PM UTC June 07, 2025 3:11:38 PM UTC [id number] on June 14, 2025 3:35:43 PM UTC MAKSIM NOLASCO Attending normal May 29, 2025 2:51:09 PM UTC June 12, 2025 9:11:00 PM UTC [id number] on June 14, 2025 3:35:43 PM UTC MAKSIM NOLASCO Admitting normal May 29, 2025 2:51:09 PM UTC June 12, 2025 9:11:00 PM UTC [id number] on June 14, 2025 3:35:43 PM UTC
--- OUTSIDE RECORDS SUMMARY | 2025-07-17 09:30 | XMS_ITS | Encounter Summary ---
Author Organization [employer] ([place], [place], [place], [place], [place]) Address [address] [place] [address] Care Team Providers Care Camera Machinist Name Role Phone Derick Peres MD Primary Care Provider [phone] Encounter Details Date Type Department Care Team (Late st Contact Info) Description 10/14/2024 Telemedicine [facility] [address] [place] [address] Echo Herbert RN Social History Tobacco Use Types Packs/Day Years Used Date Smoking Tobacco: Never Assessed Food Insecurity Answer Date Recorded Food run [...] Date Naun rded Speak language other than Urdu at home Not on file 04/19/2024 Want help with school or training Not on file 04/19/2024 Substance Use Answer Date Recorded Used [...] as of this encounter Plan of Treatment Not on file documented as of this encounter Visit Diagnoses Not on filedocumented in this encounter Care Teams Camera Machinist Relationship Specialty Start Date End Date Derick Peres MD [address] [place] [id number] PCP - General Emergency Medicine 04/19/24 documented as of this encounter
--- OUTSIDE RECORDS SUMMARY | 2025-07-17 09:30 | XMS_ITS | Referral Summary ---
Author Organization [employer] ([place], [place], [place], [place], [place]) Address [address] [place] [address] Care Team Providers Care Roofer Gypsum Name Role Phone Derick Peres MD Primary Care Provider [phone] Allergies No known active allergies Active Problems Problem Noted Date Diagnosed Date [...] Date Naun rded Speak language other than Lithuanian at home Not on file 04/19/2024 Want [...] Orientation Not on file Plan of Treatment Not on file Insurance BLUE CROSS/[employer] Care Teams Roofer Gypsum Relationship Specialty Start Date End Date Derick Peres MD [address] [place] [address] PCP - General Emergency Medicine 04/19/24
--- OUTSIDE RECORDS SUMMARY | 2025-07-17 09:30 | XMS_ITS | Clinical Summary ---
Author Organization [employer] ([place], [place], [place], [place], [place]) Address [address] [place] [address] Care Team Providers Care Field Control Inspector Name Role Phone Derick Peres MD Primary Care Provider [phone] Allergies No known active allergies Active Problems [...] Date Naun rded Speak language other than Indonesian at home Not on file 04/19/2024 Want [...] file Insurance BLUE CROSS/BLUE SHIELD Care Teams Field Control Inspector Relationship Specialty Start Date End Date Derick Peres MD [address] [place] [phone] PCP - General Emergency Medicine 04/19/24
[2025-07-17 09:36] LABS: Hematocrit 43.2 % (42.0-52.0); Hemoglobin 14.5 g/dL (14.1-18.0); Immature Granulocytes % 0.2 %; Mean Corpuscular HGB Conc 33.6 g/dL (31.8-35.4); Mean Corpuscular Hemoglobin 30.9 pg (27.0-31.2); Mean Corpuscular Volume 91.9 fl (80-94); Nucleated Red Blood Cells % 0 %; Platelet Count 234 K/mm3 (142-424); Red Blood Count 4.70 M/mm3 (4.60-6.20); Red Cell Distribution Width-SD 42.2 fL; White Blood Count 6.1 K/mm3 (4.8-10.8)
[2025-07-17 10:14] LABS: Alanine Aminotransferase 31 U/L (12-78); Albumin Level 4.8 g/dl (3.5-5.0); Alkaline Phosphatase 97 U/L (38-126); Aspartate Amino Transferase 27 U/L (17-59); Bilirubin,Direct 0.2 mg/dl (0.0-0.4); Bilirubin,Indirect 1.0 mg/dL (0.0-0.9); Bilirubin,Total 1.2 mg/dl (0.2-1.3); Bilirubin,Unconjugated 1.0 mg/dL (0.0-1.1); Cholesterol 215 mg/dl (140-200); HDL Cholesterol 48 mg/dl (40-60); Magnesium 2.1 mg/dl (1.6-2.3); Total Protein,Serum 8.6 g/dl (6.3-8.2); Triglycerides 187 mg/dl (30-150)
[2025-07-17 10:30] LABS: Free T4 (Free Thyroxine) 1.10 ng/dl (0.78-2.19)
[2025-07-17 10:44] LABS: Thyroid Stimulating Hormone 1.42 uIU/mL (0.465-4.68)
== END 2025-07-17 23:59 | disposition home or self-care (01) ==
PROVIDERS: Physician Assistant; PCP Emergency Medicine; Visit Provider Nurse Practitioner Family
DX: I25.10 Atherosclerotic heart disease of native coronary artery without angina pectoris (principal); E78.2 Mixed hyperlipidemia; I10 Essential (primary) hypertension
CPT/HCPCS: 36415; 80061; 80076; 83735; 84439; 84443; 85025